=== PATIENT | female | born 1945 | race Caucasian/White ===

== ENCOUNTER 2019-12-26 07:21 | Outpatient (CLI) | payer OTHER, SELFPAY ==
--- NOTE | ~2019-12-26 | DEXA_ITS ---
Bone Density Report Name: Maria Elena Owens Age: 74 Sex: Female Ethnicity: White Date of : 1945 Indication: postmenopausal osteoporosis; height loss; hysterectomy; Referring Provider: ÓSCAR VÁSQUEZ Study: Bone densitometry was performed. Exam Date: December 26, 2019 Accession number: [id number] Bone Density: Region BMD T-score Z-score Classification AP Spine (L1-L4) 0.752 -2.7 -0.3 Osteoporosis Femoral Neck (Left) 0.650 -1.8 0.3 Osteopenia Total Hip (Left) 0.829 -0.9 0.9 Normal Total Hip Bilateral Avg 0.794 -1.2 0.6 Osteopenia Femoral Neck (Right) 0.640 -1.9 0.2 Osteopenia Total Hip (Right) 0.757 -1.5 0.3 Osteopenia World Health Organization criteria for BMD impression classify patients as: Normal (T-score at or above -1.0), Osteopenia (T-score between -1.0 and -2.5), or Osteoporosis (T-score at or below -2.5). 10-year Fracture Risk: FRAX not reported because: Some T-score for Spine Total or Hip Total or Femoral Neck at or below -2.5 Previous Exams: Region Exam Age BMD T-score BMD Change BMD Change Date g/cm2 vs Baseline vs Previous AP Spine(L1-L4) 12/26/2019 74 0.752 -2.7 -0.005(-0.7%)# -0.005(-0.7%)# 05/11/2011 65 0.757 -2.6 Total Hip(Left) 12/26/2019 74 0.829 -0.9 0.095(12.9%)# 0.095(12.9%)# 05/11/2011 65 0.734 -1.7 Total Hip(Right) 12/26/2019 74 0.757 -1.5 0.045(6.2%)# 0.045(6.2%)# 05/11/2011 65 0.713 -1.9 *Denotes significance at 95% confidence level, LSC for AP Spine = 0.022 g/cm2, LSC for Total Hip = 0.027 g/cm2 Clinical Information Provided by Patient: Has used the following medications: Fosamax (i.e. alendronate), Calcium Has the following medical conditions: Hysterectomy Patient maximum height was 65 Menopause Age: 39 No regular weight bearing exercise Drinks caffeinated beverages Onset of menses at age 14 Number of children 4 Impression: The patient has osteoporosis, based on the Total Spine T-score. No significant bone loss was observed. Discussion: INCREASED RISK OF FRACTURE. BONE DENSITY IS UNDESIRABLY LOW AT ONE OR MORE SKELETAL SITES, CONSISTENT WITH POSTMENOPAUSAL OSTEOPOROSIS. This patient's lowest T-score meets the World Health Organization's (WHO) criteria for osteoporosis at one or more sites (T-score -2.5 or below). In untreated patients, the risk of osteoporotic fracture increases approximately two-fold for each 1.0 SD decrease in T-score. Low bone density is not the only risk factor for
== END 2019-12-26 07:22 | disposition home or self-care (01) ==
LOC: ANHIMG 07:31
PROVIDERS: PCP Internal Medicine; Visit Provider Internal Medicine
DX: M81.0 Age-related osteoporosis without current pathological fracture (principal); M85.89 Other specified disorders of bone density and structure, multiple sites
CPT/HCPCS: 77080

== ENCOUNTER 2020-12-17 11:11 | Outpatient (NON) | payer OTHER, SELFPAY ==
[2020-12-17 21:44] LABS: SARS-CoV-2 RNA PCR Positive
== END 2020-12-17 11:12 ==
PROVIDERS: Family Provider Family Medicine; PCP Internal Medicine; Visit Provider Internal Medicine
DX: U07.1 COVID-19 (principal)
CPT/HCPCS: C9803; U0003; U0005

== ENCOUNTER 2020-12-30 08:16 | Outpatient (CLI) | payer OTHER, SELFPAY ==
--- NOTE | ~2020-12-30 | XR_ITS ---
EXAMINATION: XR chest 2V EXAM DATE: 12/30/2020 08:31 INDICATION: U07.1 - COVID-19. Dry cough. TECHNIQUE: Frontal and lateral projections of the chest obtained and reviewed. There is no prior cordell dy for comparison. FINDINGS: Right basilar granuloma. The lungs are otherwise clear. There are no pleural effusions. T he cardiomediastinal silhouette is within normal limits. There is no pneumothorax suspected. The frank derrek and soft tissues are unremarkable. IMPRESSION: No acute cardiopulmonary findings. Reviewed, dictated and finalized at location B. [employer]
== END 2020-12-30 08:17 | disposition home or self-care (01) ==
LOC: ANHIMG 08:19
PROVIDERS: PCP Internal Medicine; Visit Provider Internal Medicine
DX: U07.1 COVID-19 (principal)
CPT/HCPCS: 71046

== ENCOUNTER 2021-04-05 13:36 | Emergency (ER) | payer OTHER, SELFPAY ==
[2021-04-05] VITALS (9 sets, daily range): BP systolic 103–141; BP diastolic 61–120; PULSE 79–104; RESP 12–24; TEMP 36.6–36.7; O2SAT 93–100
--- NOTE | ~2021-04-05 | XR_ITS ---
EXAMINATION: XR chest 2V DATE: 04/05/2021 14:17 INDICATION: Central chest pain. Dizziness. TECHNIQUE: Frontal and lateral views of the chest were obtained. COMPARISON: Chest 2 views 12/30/2020 FINDINGS: A calcified right lung nodule is consistent with old granulomatous disease. No pleural effu monica or pneumothorax. The heart size is normal. Surgical clips in the right upper quadrant are likely from cholecystectomy. IMPRESSION: 1. No acute cardiopulmonary disease. Reviewed, dictated and finalized at location B.
--- NOTE | 2021-04-05 13:48 | ECG_ITS ---
Measurements Intervals [place] Rate: 95 P: MD: 0 QRS: 59 QRSD: 133 T: 85 QT: 384 QTc: 483 Interpretive Statements SINUS RHYTHM VENTRICULAR PREMATURE COMPLEX LEFT BUNDLE BRANCH BLOCK ABNORMAL ECG Electronically Signed On 04-05-2021 14:00:20 CDT by Josse Hernandez D.O.
[2021-04-05 14:11] LABS: Basophils Absolute Auto 0.1 K/mm3 (0.0-0.1); Basophils Percent Auto 0.9 % (0.2-1.2); Eosinophils Absolute Auto 0.1 K/mm3 (0-0.3); Eosinophils Percent Auto 1.9 % (0-4.4); Hematocrit 38.7 % (37.0-47.0); Hemoglobin 12.4 g/dL (12.0-15.0); Immature Granulocyte Absolute 0.01 K/mm3 (0.00-0.031); Immature Granulocyte Percent A 0.1 % (0-0.5); Lymphocytes Absolute Auto 2.76 K/mm3 (0.9-3.2); Lymphocytes Percent Auto 39.3 % (18.3-44.2); Mean Corpuscular Hemoglobin 27.8 pg (26-34); Mean Corpuscular Volume 86.8 fl (80-100); Mean Platelet Volume 10.5 fl (7.4-10.4); Monocytes Absolute Auto 0.5 K/mm3 (0.1-0.6); Monocytes Percent Auto 7.5 % (2.6-8.5); Neutrophils Absolute Auto 3.5 K/mm3 (1.3-6.7); Neutrophils Percent Auto 50.3 % (45.5-73.1); Platelet Count Result 267 k/mm3 (150-375); Red Blood Count 4.46 M/mm3 (4.2-5.4); Red Cell Distribution Width 15.3 % (11.5-14.5)
[2021-04-05 14:20] LABS: Anion Gap 9 mmol/L (8-16); Blood Urea Nitrogen 23 mg/dL (7-17); Calcium 9.4 mg/dL (8.4-10.2); Carbon Dioxide 21 mmol/L (22-30); Chloride 108 mmol/L (98-107); Estimated CRCL calculation 42 ml/min; Estimated Glomerular Filt Rate > 60; Glucose 158 mg/dL (65-105); Potassium 3.7 mmol/L (3.4-5.0); Sodium 138 mmol/L (137-145)
[2021-04-05 14:21] LABS: Prothrombin Time 13.5 Seconds (11.1-14.7)
[2021-04-05 14:22] LABS: Partial Thromboplastin Time 28.6 SECONDS (22.3-36.8)
[2021-04-05 14:32] LABS: Troponin I < 0.012 ng/mL (0.000-0.034)
--- NOTE | 2021-04-05 16:45 | ED.CHESTPAIN ---
HPI - Chest Pain General Chief Complaint: Chest Pain <Andrew Gomez MD - Last Filed: 04/05/21 16:51> Stated Complaint: cp, sob <Andrew Gomez MD - Last Filed: 04/05/21 16:51> Time Seen by Provider: 04/05/21 15:09 <Andrew Gomez MD - Last Filed: 04/05/21 16:51> History of Present Illness HPI narrative: Patient is a 75-year-old female who presents ER with heart palpitations. Ongoing for 6 hours. Reports she has had palpitations for the last 50 years. Typically last 15 minutes at a time. Reports she was diagnosed with atrial fibrillation 50 years ago. She is not currently on any blood thinners or rate control medication. She reports over the last month her episodes last longer and longer. Today she felt slightly dizzy and off-balance. She had no chest pain or chest pressure. She is not short of breath. No lower extremity swelling. Reports symptoms resolved while in the waiting room. <Andrew Gomez MD - Last Filed: 04/05/21 16:51> Related Data Allergies/Adverse Reactions: Allergies Allergy/AdvReac Type Severity Reaction Status Date / Time No Known Allergies Allergy Verified 04/05/21 15:18 <Andrew Gomez MD - Last Filed: 04/05/21 16:51> Review of Systems Review of Systems: All systems reviewed & are unremarkable except as noted in HPI and below <Andrew Gomez MD - Last Filed: 04/05/21 16:51> Constitutional: Constitutional: Denies chills and Denies fever(s) <Andrew Gomez MD - Last Filed: 04/05/21 16:51> ENT: Denies nasal congestion and Denies sore throat <Andrew Gomez MD - Last Filed: 04/05/21 16:51> Cardiovascular: Cardiovascular: Denies chest pain, Denies rapid heart rate and Denies radiating jaw, neck or arm pain <Andrew Goemz MD - Last Filed: 04/05/21 16:51> Comments: palpitations <Andrew Gomez MD - Last Filed: 04/05/21 16:51> Respiratory: Respiratory: Denies cough and Denies dyspnea <Andrew Gomez MD - Last Filed: 04/05/21 16:51> Gastrointestinal: Gastrointestinal: Denies abdominal pain, Denies nausea and Denies vomiting <Andrew Gomez MD - Last Filed: 04/05/21 16:51> PMFSH Past Medical History Medical History: Medical History (Updated 04/05/21 @ 16:51 by Andrew Gomez MD) COVID-19 Gastroesophageal reflux disease without esophagitis History of kidney stones HLD (hyperlipidemia) HTN, goal below 140/80 Mitral valve prolapse Neuropathy Osteoporosis <Andrew Gomez MD - Last Filed: 04/05/21 16:51> Surgical History Surgical History: Surgical History (Updated 04/05/21 @ 16:47 by Andrew Gomez MD) History of cholecystectomy History of craniotomy History of hysterectomy <Andrew Gomez MD - Last Filed: 04/05/21 16:51> Family History Family History: Family History Father Family history of multiple sclerosis Patient's father is Mother Hypertension Cerebrovascular accident Family history of transient ischemic attacks Family history of congestive heart failure Patient's mother is Sibling Hypertension Family history of elevated blood lipids Family history of coronary artery disease Patient's sister is in good health Patient's brother is in good health <Andrew Gomez MD - Last Filed: 04/05/21 16:51> Social History Social History: Social History Smoking status: Former smoker Smoking end date: 11/27/1962 Alcohol intake: never <Andrew Gomez MD - Last Filed: 04/05/21 16:51> Exam Narrative: Exam Narrative: GENERAL: Well-appearing, well-nourished, and in no acute distress. HEAD: Normocephalic, atraumatic. ENT: Mucous membranes moist. CHEST: Clear to auscultation. No respiratory distress. HEART: Regular rate and rhythm. Normal peripheral pulses. ABDOMEN: Soft, nontender, nondistended. EXTREMITIES: Emmy
[2021-04-05 17:35] LABS: Troponin I < 0.012 ng/mL (0.000-0.034)
== END 2021-04-05 18:05 | disposition home or self-care (01) ==
PROVIDERS: Emergency Medicine; Emergency Provider Family Medicine; PCP Internal Medicine
DX: R00.2 Palpitations (principal); Z86.16 Personal history of COVID-19; K21.9 Gastro-esophageal reflux disease without esophagitis; Z87.442 Personal history of urinary calculi; E78.5 Hyperlipidemia, unspecified; I34.1 Nonrheumatic mitral (valve) prolapse; M81.0 Age-related osteoporosis without current pathological fracture; G62.9 Polyneuropathy, unspecified; Z87.891 Personal history of nicotine dependence; I49.3 Ventricular premature depolarization; I44.7 Left bundle-branch block, unspecified
CPT/HCPCS: 36415; 71046; 80048; 84484; 85025; 85610; 85730; 93005; 99284

== ENCOUNTER 2021-04-20 10:13 | Outpatient (CLI) | payer OTHER, SELFPAY ==
--- NOTE | 2021-04-23 12:46 | WPDHOLTEREM ---
Holter/Event Monitor Holter/Event Monitor Date of procedure: 04/20/21 Procedure Type: 48 hour holter monitor Indications: Palpitations Conclusion: 1. 48 hour holter monitor on 04/20/21. 2. Predominant rhythm is sinus rhythm. HR range 57-146 bpm; average HR 87 bpm. 3. There are 108 premature supraventricular complexes and 105 supraventricular couplets. There are 122 episodes of atrial fibrillation with total burden of 0.3%, fastest at 174 bpm and longest at 10 beats. 4. There are 18,757 premature ventricular complexes, 55 ventricular couplets, 27 ventricular bigeminy and 986 ventricular trigeminy. No ventricular tachycardia. 5. Left bundle branch block. No sinoatrial or atrioventricular blocks. No significant pauses greater than 2 seconds. 6. No symptoms available for correlation.
== END 2021-04-20 10:14 | disposition home or self-care (01) ==
LOC: ANHCARD 10:14
PROVIDERS: PCP Internal Medicine; Visit Provider Internal Medicine
DX: R00.2 Palpitations (principal)
CPT/HCPCS: 93225; 93226

== ENCOUNTER 2021-06-13 12:30 | Emergency (ER) | payer OTHER, SELFPAY ==
--- NOTE | 2021-06-13 12:32 | ED.GENADULT ---
HPI - General Adult General Chief complaint: Skin/Abscess/Foreign Body Stated complaint: rash Time Seen by Provider: 06/13/21 12:32 Source: patient Mode of arrival: ambulatory Limitations: no limitations History of Present Illness HPI narrative: 75-year-old female patient presents to the [facility] with complaints of a rash for the past 2 days. Patient states rash is on bilateral arms, torso, lower back and starting in between the thighs. Patient states that the rash does not itch and denies any sick symptoms recently. Patient states that the only thing that has changed is that she was put on new blood pressure medication about 2 weeks ago by her doctor and she states that this week she has went out of town for and stayed in another bed. Patient concerned about possible bedbugs. Denies chest pain or shortness of breath. Denies any nausea, vomiting or diarrhea Related Data Allergies Allergy/AdvReac Type Severity Reaction Status Date / Time No Known Allergies Allergy Verified 06/13/21 12:35 Review of Systems Review of Systems: Narrative: CONSTITUTIONAL: Denies fever, chills, or sweats. EYES: Denies visual changes, redness, or discharge. ENT: Denies rhinorrhea, congestion, sore throat, or otalgia. CARDIOVASCULAR: Denies chest pain, palpitations, or edema. RESPIRATORY: Denies cough or dyspnea. GASTROINTESTINAL: Denies abdominal pain, nausea, vomiting, or diarrhea. GENITOURINARY: Denies dysuria or hematuria. SKIN: Positive rash to bilateral arms, torso, lower back and bilateral inner thighs x2 days. No itching MUSCULOSKELETAL: Denies back pain, joint pain, or myalgia. NEUROLOGIC: Denies headache, numbness, or weakness. PSYCHIATRIC: Denies anxiety or depression. [facility] Past Medical History Medical History COVID-19 Gastroesophageal reflux disease without esophagitis History of kidney stones HLD (hyperlipidemia) HTN, goal below 140/80 Mitral valve prolapse Neuropathy Osteoporosis Surgical History Surgical History History of cholecystectomy History of craniotomy History of hysterectomy Family History Family History Father Family history of multiple sclerosis Patient's father is Mother Hypertension Cerebrovascular accident Family history of transient ischemic attacks Family history of congestive heart failure Patient's mother is Sibling Hypertension Family history of elevated blood lipids Family history of coronary artery disease Patient's sister is in good health Patient's brother is in good health Social History Social History Years smoked: 10 Smoking status: Former smoker Tobacco type: cigarettes Second hand tobacco smoke exposure: Yes Smoking end date: 11/27/1962 Alcohol intake: never Comments At the time of my signature I agree with nursing past medical history, surgical, social, and family history. There is no relevant family history pertinent to the presenting complaint. Exam Narrative: Exam Narrative: GENERAL: Well-appearing, well-nourished, and in no acute distress. HEAD: Normocephalic, atraumatic. EYES: PERRLA and EOMI. ENT: Nares clear, no rhinorrhea or epistaxis. Mucous membranes moist. NECK: Supple. No lymphadenopathy CHEST: Clear to auscultation. No respiratory distress. HEART: Regular rate and rhythm. No murmur heard. Normal peripheral pulses. ABDOMEN: Soft, nontender, nondistended, normal active bowel sounds. EXTREMITIES: Normal range of motion. No edema. SKIN: Patient has generalized rash noted. The rash appears to be oval on erythemic base the center does appear slightly darker. The shape is irregular and bigger and smaller in certain areas. There is no open wounds or drainage noted. There is no blistering noted. The rash is sc
[2021-06-13 12:34] VITALS: BP 148/63; PULSE 89; RESP 12; TEMP 36.6; O2SAT 99
== END 2021-06-13 13:00 | disposition home or self-care (01) ==
PROVIDERS: Emergency Provider Nurse Practitioner Family; PCP Internal Medicine
DX: R21 Rash and other nonspecific skin eruption (principal); Z86.16 Personal history of COVID-19; K21.9 Gastro-esophageal reflux disease without esophagitis; E78.5 Hyperlipidemia, unspecified; I10 Essential (primary) hypertension; G62.9 Polyneuropathy, unspecified; M81.0 Age-related osteoporosis without current pathological fracture; I34.1 Nonrheumatic mitral (valve) prolapse
CPT/HCPCS: 99213; G0463

== ENCOUNTER 2021-07-12 07:10 | Outpatient (CLI) | payer OTHER, SELFPAY ==
--- NOTE | ~2021-07-12 | NM_ITS ---
EXAMINATION: NM miracle stress w perfusion DATE: 07/12/2021 12:08 INDICATION: Dyspnea on exertion. TECHNIQUE: Rest images were obtained following intravenous administration of 10.2 mCi Tc99m tetrofosm in (Myoview). The patient was infused intravenously with Lexiscan (regadenoson). Then, 31.77 mCi Tc99 m tetrofosmin (Myoview) was administered intravenously, and supine and prone stress images were obtai carlos. Data was reconstructed into short axis and horizontal and vertical long axis SPECT images. Gated SPECT images were also obtained. COMPARISON: None. FINDINGS: There is no definite reversible or fixed perfusion abnormality to suggest ischemia or infar ction. There is no segmental wall motion abnormality. Left ventricular ejection fraction measures 6 2%. IMPRESSION: 1. No definite ischemia or infarct. 2. Normal left ventricular ejection fraction measuring 62%. Reviewed, dictated and finalized at location B.
--- NOTE | 2021-07-12 07:46 | EST_ITS ---
Patient Info Name: Maria Elena Owens Age: 75 years : 1945 Gender: Female Ht: 63 in Wt: 150 lbs BSA: 1.76 m2 Exam Date: 07/12/2021 10:50 AM Exam Location: [facility] Stress Patient Status: Outpatient Admit Date: 07/12/2021 Staff Ordering Physician: Josse Hernandez DO Attending Provider: Josse Hernandez DO Exercise Technologist: Kayleen Herrera RDCS Exercise Physician: Josse Hernandez DO Exam Type: CA stress miracle w NM Study Info Indications R06.00 - Dyspnea, unspecified A regadenoson stress test was performed. Summary 1. 1. Inconclusive lexiscan stress test for ischemic ST changes by ECG criteria due to baseline LBBB. 2. 2. Baseline hypertension. 3. 3. Nuclear scan to follow and will be reported separately. Please correlate with it. 4. 4. Patient informed of the above results. Protocol: Lexiscan Stress ECG Details Stage: REST Duration (min): 1 min : 48 sec HR (bpm): 69 SBP (mmHg): 157 DBP (mmHg): 78 Stage: REST Duration (min): 5 min : 3 sec HR (bpm): 72 SBP (mmHg): 157 DBP (mmHg): 78 Stage: STAGE 1 Duration (min): 1 min : 0 sec HR (bpm): 87 SBP (mmHg): 157 DBP (mmHg): 76 Stage: RECOVERY Duration (min): 1 min : 0 sec HR (bpm): 89 SBP (mmHg): 154 DBP (mmHg): 69 Stage: RECOVERY Duration (min): 2 min : 0 sec HR (bpm): 84 SBP (mmHg): 154 DBP (mmHg): 69 Stage: RECOVERY Duration (min): 3 min : 0 sec HR (bpm): 79 SBP (mmHg): 146 DBP (mmHg): 69 Stage: RECOVERY Duration (min): 4 min : 0 sec HR (bpm): 80 SBP (mmHg): 146 DBP (mmHg): 69 Stage: RECOVERY Duration (min): 4 min : 43 sec HR (bpm): 79 SBP (mmHg): 150 DBP (mmHg): 81 Rest HR: 72 bpm Peak HR: 92 bpm Rest Sys BP: 157 mmHg Peak Sys BP: 157 mmHg Max Pred HR: 144 bpm % Max Pred HR: 64 % Target HR: 122 bpm Max RPP: 14,444 bpm*mmHg Termination Reason: Completed protocol Cardiac Symptoms: Headache, flushed Total Time: 1 min : 0 sec Rest Rai BP: 78 mmHg Peak Rai BP: 76 mmHg Total Dose: 0.4 mg Resting ECG Sinus rhythm, LBBB. Stress ECG No ST changes. Arrhythmias None. Report Signatures
--- NOTE | 2021-07-12 07:46 | ECHO_ITS ---
Patient Info Name: Maria Elena Owens Age: 75 years : 1945 Gender: Female Ht: 63 in Wt: 150 lbs BSA: 1.76 m2 HR: 72 bpm BP: 156 / 84 mmHg Technical Quality: Good Exam Date: 07/12/2021 8:01 AM Exam Location: [facility] Patient Status: Outpatient Admit Date: 07/12/2021 Staff Ordering Physician: Josse Hernandez DO Boiler Inspector: Kayleen Herrera RDCS Attending Provider: Josse Hernandez DO Referring Physician: David PEREZ; Exam Type: CA echo doppler color flow Study Info Indications R06.00 - Dyspnea, unspecified Complete two-dimensional, color flow and Doppler transthoracic echocardiogram is performed. Summary 1. Complete two-dimensional, color flow and Doppler transthoracic echocardiogram is performed. 2. Left ventricular chamber dimension is normal. 3. Left ventricular systolic function is normal, estimated at 55-60%. 4. Left ventricular septal wall motion is abnormal with septal motion related to bundle branch block. 5. The left ventricular diastolic function is grade I diastolic dysfunction. 6. E/e' 9 is minimally elevated. 7. Global longitudinal strain is mildly abnormal at -16.0%. 8. Left atrial chamber dimension is mildly enlarged. 9. There is trace aortic valve regurgitation. 10. There is trace mitral valve regurgitation. 11. No pulmonary hypertension, estimated pulmonary arterial systolic pressure is 21 mmHg. 12. There is trivial pericardial effusion. Left Ventricle E/e' 9 is minimally elevated. Global longitudinal strain is mildly abnormal at -16.0%. Left ventricular chamber dimension is normal. Left ventricular systolic function is normal, estimated at 55-60%. Left ventricular septal wall motion is abnormal with septal motion related to bundle branch block. The left ventricular diastolic function is grade I diastolic dysfunction. Right Ventricle Right ventricular chamber dimension is normal. Right ventricular systolic function is normal. Left Atria Left atrial chamber dimension is mildly enlarged. Right Atria Right atrial chamber dimension is normal. Aortic Valve The aortic valve is trileaflet. There is no aortic valve stenosis. There is trace aortic valve regurgitation. Pulmonic Valve There is no pulmonic regurgitation. Mitral Valve There is no mitral valve stenosis. There is trace mitral valve regurgitation. Tricuspid Valve There is no tricuspid valve regurgitation. No pulmonary hypertension, estimated pulmonary arterial systolic pressure is 21 mmHg. Pericardium/Pleural There is trivial pericardial effusion. Inferior Vena Cava Normal inferior vena cava with >50% collapse upon inspiration consistent with normal right atrial pressure, 5 mmHg. Aorta The aortic root size at the sinus of Valsalva is normal. Left Ventricular Outflow Tract Name Value Normal LVOT 2D LVOT Diameter 2.0 cm LVOT Doppler LVOT Peak Gradient 5 mmHg LVOT Mean Gradient 3 mmHg LVOT VTI 22 cm LVOT VTI/AV VTI Ratio 0.8 LVOT Stroke Volume 72
== END 2021-07-12 07:11 | disposition home or self-care (01) ==
PROVIDERS: PCP Internal Medicine; Visit Provider Internal Medicine Cardiovascular Disease
DX: R06.00 Dyspnea, unspecified (principal); I10 Essential (primary) hypertension
CPT/HCPCS: 78452; 93017; 93306; A9502; J2785

== ENCOUNTER → 2021-07-30 08:35 | Outpatient (CLI) | payer OTHER, SELFPAY ==
--- NOTE | 2021-08-20 10:10 | WPDSLEEPSTUD ---
Sleep Study Date of Study: 07/30/21 <Teresa Treviño MD - Last Filed: 08/25/21 16:51> Ordering Provider: Josse Hernandez DO <Teresa Treviño MD - Last Filed: 08/25/21 16:51> Interpreting Physician: Teresa Treviño MD <Teresa Treviño MD - Last Filed: 08/25/21 16:51> Sleep Study Type: Polysomnogram <Teresa Treviño MD - Last Filed: 08/25/21 16:51> Height: 1.65 m <Teresa Treviño MD - Last Filed: 08/25/21 16:51> Weight: 58.967 kg <Teresa Treviño MD - Last Filed: 08/25/21 16:51> Body Mass Index: 21.6 <Teresa Treviño MD - Last Filed: 08/25/21 16:51> Neck Circumference (inches): 14 <Teresa Treviño MD - Last Filed: 08/25/21 16:51> [place]: 10 <Teresa Treviño MD - Last Filed: 08/25/21 16:51> Reason for Sleep Study Occasional snoring, hypersomnolence <Teresa Treviño MD - Last Filed: 08/25/21 16:51> Hypersomnia <Kaci Quinn PA-C - Last Filed: 08/20/21 10:55> Sleep History Maria Elena Owens is a 75 year old female with episodes of waking at night to go to the bathroom. She has excessive daytime sleepiness. There is a family history of sleep issues with her daughter who has sleep apnea. The patient does not awaken from sleep feeling short of breath or awaken at night with heartburn, belching or coughing. She occasionally snores. She rarely snores loudly enough that others complain. She occasionally has trouble sleeping with a cold. She does not wake up gasping for breath at night. She does not sweat excessively at night. She frequently notices her heart pounding or beating irregularly at night. She constantly falls asleep during the day, rarely falls asleep involuntarily, never falls asleep while driving. She does not have loss of muscle tone with strong emotion. She does not have daytime difficulties due to excessive sleepiness. She does not feel paralyzed on waking or falling asleep. She occasionally has vivid dreamlike scenes upon awakening or falling asleep. She does not feel afraid to go to sleep. She does not have nightmares. She rarely remembers her dreams, rarely has racing thoughts, feelings of sadness, depression or anxiety. She does not have muscular tension, does not notice part of her body jerking. She does not kick at night. She does not have crawling or aching feelings in her legs. She rarely has any kind of leg pain at night. She does not have morning jaw pain. She does not grind her teeth during sleep. She is not bothered by pain during the day or awakened by pain at night. She rarely wakes up feeling stiff in the morning. She does not wake up with sore achy muscles. She rarely wakes up with pain in the neck and spine. She has fatigue and palpitations. She has memory problems which she attributes to her age. She takes antacids regularly. Normal bedtime is 11:00 p.m. falling asleep quickly waking 3 times at night to go to the bathroom as well as get a slip of water. She is able to return to sleep quickly. She wakes the morning at 6:30 a.m.. Her weekend schedule is the same. She estimates getting 4-6 hours of sleep most nights. She takes naps in the afternoon. She has a short nap may be refreshing. She feels better in the evening compared to other times of day. Habits: Remote tobacco none x 1963. No caffeine. Alcohol 1 or 2 per year. No recreational drugs. <Teresa Treviño MD - Last Filed: 08/25/21 16:51> [facility] Past Medical History Medical History: Medical History COVID-19 Gastroesophageal reflux disease without esophagitis History of kidney stones HLD (hyperlipidemia) HTN, goal below 140/80 Mitral valve prolapse Neuropathy Osteoporosis <Teresa Treviño MD - Last Filed: 08/25/21 16:51> Surgical History Surgical History: Surgical History History of cholecystectomy History o
[2021-08-25 16:51] VITALS: BMI 21.6
== END ==
PROVIDERS: PCP Internal Medicine; Visit Provider Internal Medicine Cardiovascular Disease
DX: G47.33 Obstructive sleep apnea (adult) (pediatric) (principal); G47.61 Periodic limb movement disorder; G47.10 Hypersomnia, unspecified; R00.2 Palpitations; I10 Essential (primary) hypertension; E78.5 Hyperlipidemia, unspecified; I48.0 Paroxysmal atrial fibrillation; R06.00 Dyspnea, unspecified; K21.9 Gastro-esophageal reflux disease without esophagitis; I49.3 Ventricular premature depolarization; I44.7 Left bundle-branch block, unspecified; Z86.16 Personal history of COVID-19
CPT/HCPCS: 95810

== ENCOUNTER 2021-09-09 18:53 | Outpatient (CLI) | payer OTHER, SELFPAY ==
--- NOTE | 2021-09-21 16:08 | WPDSLEEPSTUD ---
Sleep Study Date of Study: 09/09/21 <Evangelina Yan DO - Last Filed: 09/21/21 16:37> Ordering Provider: Duke Min DO <Evangelina Yan DO - Last Filed: 09/21/21 16:37> Interpreting Physician: Evangelina Yan DO <Evangelina Yan DO - Last Filed: 09/21/21 16:37> Sleep Study Type: CPAP Titration <Evangelina Yan DO - Last Filed: 09/21/21 16:37> Height: 1.65 m <Evangelina Yan DO - Last Filed: 09/21/21 16:37> Weight: 68.039 kg <Evangelina Yan DO - Last Filed: 09/21/21 16:37> Body Mass Index: 25.0 <Evangelina Yan DO - Last Filed: 09/21/21 16:37> Neck Circumference (inches): 14.5 <Evangelina Yan DO - Last Filed: 09/21/21 16:37> [place]: 6 <Evangelina Yan DO - Last Filed: 09/21/21 16:37> Reason for Sleep Study The patient had a PSG on 07/30/2021 that showed an AHI of 16.6. <Evangelina Yan DO - Last Filed: 09/21/21 16:37> Sleep History Maria Elena Owens is a 75 year old female with episodes of waking at night to go to the bathroom. She has excessive daytime sleepiness. There is a family history of sleep issues with her daughter who has sleep apnea. The patient does not awaken from sleep feeling short of breath or awaken at night with heartburn, belching or coughing. She occasionally snores. She rarely snores loudly enough that others complain. She occasionally has trouble sleeping with a cold. She does not wake up gasping for breath at night. She does not sweat excessively at night. She frequently notices her heart pounding or beating irregularly at night. She constantly falls asleep during the day, rarely falls asleep involuntarily, never falls asleep while driving. She does not have loss of muscle tone with strong emotion. She does not have daytime difficulties due to excessive sleepiness. She does not feel paralyzed on waking or falling asleep. She occasionally has vivid dreamlike scenes upon awakening or falling asleep. She does not feel afraid to go to sleep. She does not have nightmares. She rarely remembers her dreams, rarely has racing thoughts, feelings of sadness, depression or anxiety. She does not have muscular tension, does not notice part of her body jerking. She does not kick at night. She does not have crawling or aching feelings in her legs. She rarely has any kind of leg pain at night. She does not have morning jaw pain. She does not grind her teeth during sleep. She is not bothered by pain during the day or awakened by pain at night. She rarely wakes up feeling stiff in the morning. She does not wake up with sore achy muscles. She rarely wakes up with pain in the neck and spine. She has fatigue and palpitations. She has memory problems which she attributes to her age. She takes antacids regularly. Normal bedtime is 11:00 p.m. falling asleep quickly waking 3 times at night to go to the bathroom as well as get a slip of water. She is able to return to sleep quickly. She wakes the morning at 6:30 a.m.. Her weekend schedule is the same. She estimates getting 4-6 hours of sleep most nights. She takes naps in the afternoon. She has a short nap may be refreshing. She feels better in the evening compared to other times of day. Habits: Remote tobacco none x 1963. No caffeine. Alcohol 1 or 2 per year. No recreational drugs. <Evangelina Yan DO - Last Filed: 09/21/21 16:37> [facility] Past Medical History Medical History: Medical History COVID-19 Gastroesophageal reflux disease without esophagitis History of kidney stones HLD (hyperlipidemia) HTN, goal below 140/80 Mitral valve prolapse Neuropathy Osteoporosis PAF (paroxysmal atrial fibrillation) <Evangelina Yan DO - Last Filed: 09/21/21 16:37> Surgical History Surgical History: Surgical History Hi
[2021-09-21 16:10] VITALS: BMI 25.0
== END 2021-09-10 06:51 | disposition home or self-care (01) ==
LOC: ANHCSM 18:58
PROVIDERS: PCP Internal Medicine; Visit Provider Internal Medicine
DX: G47.33 Obstructive sleep apnea (adult) (pediatric) (principal)
CPT/HCPCS: 95811

== ENCOUNTER 2021-09-18 10:01 | Emergency (ER) | payer OTHER, SELFPAY ==
[2021-09-18 10:07] VITALS: BP 125/68; PULSE 82; RESP 16; TEMP 36.6; O2SAT 99
--- NOTE | 2021-09-18 10:07 | ED.URI ---
HPI - URI/Sore Throat General Chief Complaint: Upper Respiratory Infection Stated Complaint: sore throat Time Seen by Provider: 09/18/21 10:08 Source: patient, RN notes reviewed and old records reviewed Mode of arrival: ambulatory Limitations: no limitations History of Present Illness HPI Narrative: 75-year-old female with a history of A. fib, hypertension, GERD, high cholesterol and osteoporosis presents to the [facility] with 3 days of a sore throat, cough that she states is clear productive. Has been using Vicks. Patient reports that she was working in the yard without a mask on and shortly after developed a sore throat. Believes it is allergies or sinuses. Only treatment with Vicks. Denies nausea vomiting diarrhea. Denies fevers, chest pain, abdominal pain. History of a craniotomy due to tumors. Related Data Home Medications Medication Instructions Recorded Confirmed alendronate [Fosamax] 70 mg PO WEEKLY 09/18/21 09/18/21 amiodarone [Cordarone] 200 mg PO DAILY 09/18/21 09/18/21 apixaban [Eliquis] 10 mg PO DAILY 09/18/21 09/18/21 duloxetine [Cymbalta] 20 mg PO DAILY 09/18/21 09/18/21 losartan 100 mg PO DAILY 09/18/21 09/18/21 omeprazole [Prilosec] 40 mg PO DAILY 09/18/21 09/18/21 pravastatin [Pravachol] 40 mg PO DAILY 09/18/21 09/18/21 Allergies Allergy/AdvReac Type Severity Reaction Status Date / Time No Known Allergies Allergy Verified 07/20/21 10:49 Review of Systems Review of Systems: All systems reviewed & are unremarkable except as noted in HPI and below Constitutional: Constitutional: Reports no additional constitutional complaints, Denies chills and Denies fever(s) Eyes: Eyes: Reports no additional eye complaints ENT: Reports as per HPI and Reports sore throat Cardiovascular: Cardiovascular: Reports no additional cardiovascular complaints and Denies chest pain Respiratory: Respiratory: Reports no additional respiratory complaints, Denies cough and Denies dyspnea Gastrointestinal: Gastrointestinal: Reports no additional gastrointestinal complaints, Denies abdominal pain, Denies diarrhea, Denies nausea and Denies vomiting Musculoskeletal: Musculoskeletal: Reports no additional musculoskeletal complaints Integumentary/Breasts: Skin/Breast: Reports system reviewed and no additional complaints, except as docu, Denies pruritus, Denies erythema and Denies rash Neurologic: Reports system reviewed and no additional complaints, except as documented Psychiatric: Psychiatric: Reports no additional psychiatric complaints Allergic/Immunologic: Allergic/Immunologic: Reports no additional allergic/immunologic complaints [facility] Past Medical History Medical History (Updated 09/18/21 @ 11:29 by Kacie Gresham) COVID-19 Gastroesophageal reflux disease without esophagitis History of kidney stones HLD (hyperlipidemia) HTN, goal below 140/80 Mitral valve prolapse Neuropathy Osteoporosis PAF (paroxysmal atrial fibrillation) Surgical History Surgical History History of cholecystectomy History of craniotomy History of hysterectomy Family History Family History Father Family history of multiple sclerosis Patient's father is Mother Hypertension Cerebrovascular accident Family history of transient ischemic attacks Family history of congestive heart failure Patient's mother is Sibling Hypertension Family history of elevated blood lipids Family history of coronary artery disease Patient's sister is in good health Patient's brother is in good health Social History Social History Smoking packs per day: 0.05 Smoking cigarettes per day: 1.0 Years smoked: 10 Smoking pack-years: 0.50 Smoking status: Former smoker Tobacco type: cigarettes Second hand tobacco smoke exposure: No Smoking end date: 11/27/1962 Alcohol intake:
== END 2021-09-18 10:34 | disposition home or self-care (01) ==
PROVIDERS: Emergency Provider Nurse Practitioner; PCP Internal Medicine
DX: J02.9 Acute pharyngitis, unspecified (principal); R09.82 Postnasal drip; Z87.891 Personal history of nicotine dependence; K21.9 Gastro-esophageal reflux disease without esophagitis; E78.5 Hyperlipidemia, unspecified; I10 Essential (primary) hypertension; I34.9 Nonrheumatic mitral valve disorder, unspecified; G62.9 Polyneuropathy, unspecified; M81.0 Age-related osteoporosis without current pathological fracture; I48.0 Paroxysmal atrial fibrillation; Z86.16 Personal history of COVID-19
CPT/HCPCS: 87081; 87880; 99213; G0463

== ENCOUNTER 2021-12-01 13:57 | Emergency (ER) | payer OTHER, SELFPAY ==
--- NOTE | ~2021-12-01 | XR_ITS ---
EXAMINATION: [id number] DATE: 12/01/2021 15:17 INDICATION: Left rib pain. TECHNIQUE: A frontal view of the chest and 3 views of the left ribs were obtained. COMPARISON: Chest 2 views 04/05/2021 FINDINGS: There is mild scarring at the lung apices. A calcified right lung nodules consistent with o ld granulomatous disease. No pleural effusion or pneumothorax. The heart size is normal. Surgical cli ps in the right upper quadrant are likely from cholecystectomy. IMPRESSION: 1. No acute rib fracture. 2. Mild scarring at the lung apices. Reviewed, dictated and finalized at location A. [facility]
[2021-12-01 14:05] VITALS: BP 142/72; PULSE 78; RESP 16; TEMP 36.6; O2SAT 99
--- NOTE | 2021-12-01 15:02 | ED.BACK ---
HPI - Back Pain/Injury General Chief Complaint: Back Pain/Injury Stated Complaint: Rib Pain Time Seen by Provider: 12/01/21 15:15 Source: patient and RN notes reviewed Mode of arrival: ambulatory Limitations: no limitations History of Present Illness HPI Narrative: 76-year-old female presents concern for posterior rib pain. Reports this morning she sneezed and felt a sudden pain near her bra strap on the left side. She reports pain is exacerbated with movement, deep breathing, coughing. Reports she took 2 Tylenol prior to arrival. She denies any trouble breathing. Reports tenderness to touch. She denies chest pain or shortness of breath. MD elicited complaint: back pain Related Data Home Medications Medication Instructions Recorded Confirmed alendronate [Fosamax] 70 mg PO WEEKLY 09/18/21 10/13/21 duloxetine [Cymbalta] 20 mg PO DAILY 09/18/21 10/13/21 losartan 100 mg PO DAILY 09/18/21 10/13/21 omeprazole [Prilosec] 40 mg PO DAILY 09/18/21 10/13/21 Allergies Allergy/AdvReac Type Severity Reaction Status Date / Time No Known Allergies Allergy Verified 10/13/21 13:20 Review of Systems Review of Systems: CONSTITUTIONAL: Denies malaise, chills, sweats, or fever. CARDIOVASCULAR: Denies chest pain, palpitations, or edema. RESPIRATORY: Denies cough or dyspnea. GASTROINTESTINAL: Denies abdominal pain, nausea, vomiting, diarrhea, loss of bowel function GENITOURINARY: Denies dysuria, hematuria, frequency, loss of bladder function. SKIN: Denies rash or itching. MUSCULOSKELETAL: Reports posterior left-sided rib pain NEUROLOGIC: Denies numbness, weakness, or headache. All systems reviewed & are unremarkable except as noted in HPI and below PMFSH Past Medical History Medical History COVID-19 Gastroesophageal reflux disease without esophagitis History of kidney stones HLD (hyperlipidemia) HTN, goal below 140/80 Mitral valve prolapse Neuropathy Osteoporosis PAF (paroxysmal atrial fibrillation) Surgical History Surgical History History of cholecystectomy History of craniotomy History of hysterectomy Family History Family History Father Family history of multiple sclerosis Patient's father is Mother Hypertension Cerebrovascular accident Family history of transient ischemic attacks Family history of congestive heart failure Patient's mother is Sibling Hypertension Family history of elevated blood lipids Family history of coronary artery disease Patient's sister is in good health Patient's brother is in good health Social History Social History Smoking packs per day: 0.05 Smoking cigarettes per day: 1.0 Years smoked: 10 Smoking pack-years: 0.50 Smoking status: Never smoker Tobacco type: cigarettes Second hand tobacco smoke exposure: No Smoking end date: 11/27/1962 Alcohol intake: never Substance use: never Comments At time of signature, agree with nursing past medical, surgical, social and family history. There is no relevant family history pertinent to the presenting complaint Exam Narrative: GENERAL: Well-appearing, well-nourished, and in no acute distress. HEAD: Normocephalic, atraumatic. EYES: PERRLA, sclera clear, and EOMI. No nystagmus. ENT: Mucous membranes moist. NECK: Supple. CHEST: No respiratory distress. Clear to auscultation. No bony deformities, no asymmetry. Speaks in full sentences. Tenderness noted to the left side mid posterior ribs, no mid line back pain HEART: Regular rate and rhythm. No murmur heard. Normal peripheral pulses. EXTREMITIES: Grossly normal range of motion. No edema. Grossly normal strength and sensation. SKIN: Warm, dry, no visible rash. No bruising, redness, open skin NEURO: Alert and oriented
== END 2021-12-01 15:40 | disposition home or self-care (01) ==
PROVIDERS: Emergency Provider Nurse Practitioner; PCP Internal Medicine
DX: R07.81 Pleurodynia (principal); F17.210 Nicotine dependence, cigarettes, uncomplicated; K21.9 Gastro-esophageal reflux disease without esophagitis; E78.5 Hyperlipidemia, unspecified; I10 Essential (primary) hypertension; I34.1 Nonrheumatic mitral (valve) prolapse; M81.0 Age-related osteoporosis without current pathological fracture; I48.0 Paroxysmal atrial fibrillation; G62.9 Polyneuropathy, unspecified; Z86.16 Personal history of COVID-19
CPT/HCPCS: 71101; 99213; G0463

== ENCOUNTER 2022-03-12 08:20 | Outpatient (CLI) | payer OTHER, SELFPAY ==
--- NOTE | ~2022-03-12 | MM_ITS ---
EXAMINATION: MM screening [facility] BI w [facility] HISTORY: Screening mammogram TECHNIQUE: Craniocaudal and mediolateral oblique 3-D tomosynthesis images were obtained and synthetic 2-D images were generated. CAD analysis was submitted and interpreted. COMPARISON: 07/25/2018, 01/13/2016 bilateral screening mammogram examinations BREAST PARENCHYMAL COMPOSITION: There are scattered areas of fibroglandular density. FINDINGS: Occasional benign calcifications. Stable right intramammary lymph node. There is no evidenc e of suspicious mass, calcification, or architectural distortion to suggest malignancy in either [address]. There has been no suspicious interval change. IMPRESSION: 1. No mammographic evidence of malignancy. 2. Recommend routine screening mammography in one year. BI-RADS Category 2: Benign finding(s). Reviewed, dictated and finalized at location A.
== END 2022-03-12 08:21 | disposition home or self-care (01) ==
PROVIDERS: PCP Internal Medicine; Visit Provider Internal Medicine
DX: Z12.31 Encounter for screening mammogram for malignant neoplasm of breast (principal)
CPT/HCPCS: 77063; 77067

== ENCOUNTER 2022-06-10 10:09 | Emergency (ER) | payer OTHER, SELFPAY ==
[2022-06-10 10:34] VITALS: BP 145/73; PULSE 74; RESP 16; TEMP 37.2; O2SAT 98
--- NOTE | 2022-06-10 10:51 | ED.SKABFB ---
HPI - Skin/Abscess/Foreign Bdy General Chief complaint: Skin/Abscess/Foreign Body Stated complaint: body rash on neck,face,arms Time Seen by Provider: 06/10/22 10:51 Source: patient Mode of arrival: ambulatory Limitations: no limitations History of Present Illness HPI narrative: 76-year-old female presented for complaint of rash to left cheek, neck, and both arms for 3 days. States it started after she was working in the garden. She denies changes to lotion, soap, detergent etc. Endorses the rash is itching, denies pain or drainage to any of the sites. She has been taking [id number]-[id number] hydrocortisone and Benadryl cream as needed. Denies lip, tongue, throat swelling or difficulty breathing. MD complaint: rash Related Data Allergies Allergy/AdvReac Type Severity Reaction Status Date / Time No Known Allergies Allergy Verified 06/10/22 10:34 Review of Systems Review of Systems: CONSTITUTIONAL: Denies body aches, fever, chills, or sweats. EYES: Denies visual changes, redness, or discharge. ENT: Denies rhinorrhea, congestion, sore throat CARDIOVASCULAR: Denies chest pain, palpitations, or edema. RESPIRATORY: Denies dyspnea. GASTROINTESTINAL: Denies abdominal pain, nausea, vomiting, or diarrhea. SKIN: reports rash, itching MUSCULOSKELETAL: Denies joint pain, or myalgia. NEUROLOGIC: Denies headache [facility] Past Medical History Medical History COVID-19 Gastroesophageal reflux disease without esophagitis History of kidney stones HLD (hyperlipidemia) HTN, goal below 140/80 Mitral valve prolapse Neuropathy Osteoporosis PAF (paroxysmal atrial fibrillation) Surgical History Surgical History History of cholecystectomy History of craniotomy History of hysterectomy Family History Family History Father Family history of multiple sclerosis Patient's father is Mother Hypertension Cerebrovascular accident Family history of transient ischemic attacks Family history of congestive heart failure Patient's mother is Sibling Hypertension Family history of elevated blood lipids Family history of coronary artery disease Patient's sister is in good health Patient's brother is in good health Social History Social History Smoking packs per day: 0.05 Smoking cigarettes per day: 1.0 Years smoked: 10 Smoking pack-years: 0.50 Smoking status: Never smoker Tobacco type: cigarettes Second hand tobacco smoke exposure: No Smoking end date: 11/27/1962 Alcohol intake: never Substance use: never Comments At time of signature, I have reviewed and agree with nursing past medical, surgical, social and family history unless otherwise noted. Please see nursing chart for further information. There is no relevant family history pertinent to the presenting complaint Exam Narrative: GENERAL: Well-appearing EYES: conjunctivae clear, and EOMI. ENT: Mucous membranes moist. Oropharynx without edema, erythema or lesions. CHEST: Clear to auscultation. No respiratory distress. HEART: Regular rate and rhythm. SKIN: Warm, dry. Round patches of erythematous lesions to neck, left cheek, and bilateral arms, c/w contact dermatitis NEURO: Alert and oriented x3. Course Course Emergency Course: Patient is aware of diagnosis, understands and agrees to treatment plan. Anticipatory guidance given. Patient agrees to follow-up as directed and is aware of reasons to seek care at the emergency department. Portions of this record may have been created with voice recognition software Level of Care: Express Care Visit Vital Signs Vital signs: Vital Signs Temperature 98.9 F 06/10/22 10:34 Pulse Rate 74 06/10/22 10:34 Respiratory Rate 16 06/10/22 10:34 Blood Pressure
== END 2022-06-10 11:04 | disposition home or self-care (01) ==
PROVIDERS: Emergency Provider Nurse Practitioner Family; PCP Internal Medicine
DX: L25.9 Unspecified contact dermatitis, unspecified cause (principal); Z87.891 Personal history of nicotine dependence; K21.9 Gastro-esophageal reflux disease without esophagitis; E78.5 Hyperlipidemia, unspecified; I10 Essential (primary) hypertension; I34.1 Nonrheumatic mitral (valve) prolapse; G62.9 Polyneuropathy, unspecified; M81.0 Age-related osteoporosis without current pathological fracture; I48.0 Paroxysmal atrial fibrillation; Z86.16 Personal history of COVID-19
CPT/HCPCS: 99213; G0463

== ENCOUNTER 2023-06-09 03:12 | Day surgery (SDC) | payer OTHER, SELFPAY ==
[2023-05-25 14:18] VITALS: BMI 27.1
[2023-06-09 11:10] VITALS: BP 161/79; PULSE 79; RESP 18; TEMP 36.3; O2SAT 98
--- NOTE | 2023-06-09 11:22 | PM.HPGS ---
History of Present Illness History of Present Illness Consent: Risks, benefits, and alternatives have been discussed and questions answered. Patient agrees to proceed with procedure. Chief complaint: neoplasm screening Narrative: Maria Elena Owens is a 77 year old female Presents for screening colonoscopy. Patient's current weight appetite and bowel movements are normal. Patient denies abdominal pain. She has had no bleeding. Family history noncontributory. Previous colonoscopy [address] Garner was unremarkable. Patient does report occasional bright red blood per rectum attributed to hemorrhoids. Review of Systems Review of Systems: Review of systems noncontributory. [facility] Past Medical History Medical History COVID-19 Gastroesophageal reflux disease without esophagitis History of kidney stones HLD (hyperlipidemia) HTN, goal below 140/80 Mitral valve prolapse Neuropathy Osteoporosis PAF (paroxysmal atrial fibrillation) Surgical History Surgical History History of cholecystectomy History of craniotomy History of hysterectomy Family History Family History Father Family history of multiple sclerosis Patient's father is Mother Hypertension Cerebrovascular accident Family history of transient ischemic attacks Family history of congestive heart failure Patient's mother is Sibling Hypertension Family history of elevated blood lipids Family history of coronary artery disease Patient's sister is in good health Patient's brother is in good health Social History Social History Smoking packs per day: 0.5 Smoking cigarettes per day: 10.0 Years smoked: 10 Smoking pack-years: 5.00 Smoking status: Former smoker Tobacco type: cigarettes Second hand tobacco smoke exposure: No Smoking end date: 11/27/1962 Alcohol intake: never Substance use: never Substance use type: does not use Lack of Transportation: No Lack of Food: Never True Current Housing: I Have Housing Concerned About Future Housing: No Difficulty Paying Gas/Electric Bills: No Difficulty Paying for Meds: No Currently Unemployed: No Education: Trade/Vocational Certificate Difficulty w/ Childcare or Family Care: No Living arrangements: with family Spiritual care concerns: No Meds Home Medications and Allergies Home Medications Medication Instructions Recorded Confirmed Type apixaban 5 mg tablet (Eliquis) 2.5 mg PO BID 08/04/22 06/09/23 History amiodarone 200 mg tablet See Rx Instructions .Route 01/25/23 06/09/23 Rx .COMPLEX #90 tabs calcium carbonate 500 mg calcium 500 mg PO BID 02/08/23 05/25/23 History (1,250 mg) chewable tablet (Calcium 500) cholecalciferol (vitamin D3) 25 25 mcg PO DAILY 02/08/23 05/25/23 History mcg (1,000 unit) capsule ferrous sulfate 325 mg (65 mg 325 mg PO DAILY 02/08/23 05/25/23 History iron) tablet magnesium 250 mg tablet 250 mg PO DAILY 02/08/23 05/25/23 History mecobalamin (vitamin B12) 500 mcg 500 mcg PO DAILY 02/08/23 05/25/23 History chewable tablet multivitamin 1 tablet PO DAILY 02/08/23 05/25/23 History omega-3 fatty acids-fish oil 360 1 cap PO BID 02/08/23 05/25/23 History mg-1,200 mg capsule (Fish Oil) pravastatin 40 mg tablet See Rx Instructions .Route 02/13/23 05/25/23 Rx .COMPLEX #90 tabs duloxetine 20 mg capsule,delayed 20 mg PO DAILY #90 caps 02/14/23 05/25/23 Rx release (Cymbalta) losartan 100 1 tablet PO DAILY #90 tabs 03/08/23 05/25/23 Rx mg-hydrochlorothiazide 25 mg tablet omeprazole 40 mg capsule,delayed 40 mg PO DAILY #90 caps 05/29/23 06/09/23 Rx release Allergies Allergy/AdvReac Type Severity Reaction Status Date / Time No Known Allergies Allergy V
[2023-06-09] MEDS: LACTATED RINGERS 1,000 ML 150 ML IV CONT (11:25)
--- NOTE | 2023-06-09 11:43 | WPDANESEPPF ---
Anes - Initial Pre Proc Eval Procedure: Operation Date: 06/09/23 11:30 Proposed Procedures p Screening Colonoscopy - Reginald Rajan MD Date/Time: 06/09/23 11:43 Surgeon: Reginald Rajan MD Pre Op Diagnosis: neoplasm screening Patient Data Age: 77 Gender: F Height: 1.65 m Weight: 72.7 kg Last Vital Signs Temp 97.3 F L 06/09/23 11:10 Pulse 79 06/09/23 11:10 Resp 18 06/09/23 11:10 BP 161/79 H 06/09/23 11:10 Pulse Ox 98 06/09/23 11:10 O2 Del Method Room Air 06/09/23 11:10 Allergies Allergy/AdvReac Type Severity Reaction Status Date / Time No Known Allergies Allergy Verified 06/09/23 11:08 Home Medications Medication Instructions Recorded Confirmed Type apixaban 5 mg tablet (Eliquis) 2.5 mg PO BID 08/04/22 06/09/23 History amiodarone 200 mg tablet See Rx Instructions .Route 01/25/23 06/09/23 Rx .COMPLEX #90 tabs calcium carbonate 500 mg calcium 500 mg PO BID 02/08/23 05/25/23 History (1,250 mg) chewable tablet (Calcium 500) cholecalciferol (vitamin D3) 25 25 mcg PO DAILY 02/08/23 05/25/23 History mcg (1,000 unit) capsule ferrous sulfate 325 mg (65 mg 325 mg PO DAILY 02/08/23 05/25/23 History iron) tablet magnesium 250 mg tablet 250 mg PO DAILY 02/08/23 05/25/23 History mecobalamin (vitamin B12) 500 mcg 500 mcg PO DAILY 02/08/23 05/25/23 History chewable tablet multivitamin 1 tablet PO DAILY 02/08/23 05/25/23 History omega-3 fatty acids-fish oil 360 1 cap PO BID 02/08/23 05/25/23 History mg-1,200 mg capsule (Fish Oil) pravastatin 40 mg tablet See Rx Instructions .Route 02/13/23 05/25/23 Rx .COMPLEX #90 tabs duloxetine 20 mg capsule,delayed 20 mg PO DAILY #90 caps 02/14/23 05/25/23 Rx release (Cymbalta) losartan 100 1 tablet PO DAILY #90 tabs 03/08/23 05/25/23 Rx mg-hydrochlorothiazide 25 mg tablet omeprazole 40 mg capsule,delayed 40 mg PO DAILY #90 caps 05/29/23 06/09/23 Rx release Patient hx anesthesia problems: none Family hx anesthesia problems: none Results Review: All pre-operative results and documents have been reviewed as part of the pre-operative evaluation. [facility] Past Medical History Medical History COVID-19 Gastroesophageal reflux disease without esophagitis History of kidney stones HLD (hyperlipidemia) HTN, goal below 140/80 Mitral valve prolapse Neuropathy Osteoporosis PAF (paroxysmal atrial fibrillation) Surgical History Surgical History History of cholecystectomy History of craniotomy History of hysterectomy Family History Family History Father Family history of multiple sclerosis Patient's father is Mother Hypertension Cerebrovascular accident Family history of transient ischemic attacks Family history of congestive heart failure Patient's mother is Sibling Hypertension Family history of elevated blood lipids Family history of coronary artery disease Patient's sister is in good health Patient's brother is in good health Social History Social History Smoking packs per day: 0.5 Smoking cigarettes per day: 10.0 Years smoked: 10 Smoking pack-years: 5.00 Smoking status: Former smoker Tobacco type: cigarettes Second hand tobacco smoke exposure: No Smoking end date: 11/27/1962 Alcohol intake: never Substance use: never Substance use type: does not use Lack of Transportation: No Lack of Food: Never True Current Housing: I Have Housing Concerned About Future Housing: No Difficulty Paying Gas/Electric Bills: No Difficulty Paying for Meds: No Currently Unemployed: No Education: Trade/Vocational Certificate Difficulty w/ Childcare or Family Care: No Living arrangements: with family Spiritual care concerns: No
[2023-06-09 12:08] VITALS: BP 100/49; PULSE 69; RESP 18; O2SAT 94
[2023-06-09 12:18] VITALS: BP 110/49; PULSE 69; RESP 18; O2SAT 95
[2023-06-09 12:28] VITALS: BP 123/56; PULSE 68; RESP 18; O2SAT 97
== END 2023-06-09 12:47 | disposition home or self-care (01) ==
PROVIDERS: PCP Family Medicine; Visit Provider Internal Medicine Gastroenterology
PROC: 0DJD8ZZ Inspection of Lower Intestinal Tract, Via Natural or Artificial Opening Endoscopic (ICD-10-PCS; CPT 45378; principal; 2023-06-09 11:30)
DX: Z12.11 Encounter for screening for malignant neoplasm of colon (principal); K64.8 Other hemorrhoids; K57.30 Diverticulosis of large intestine without perforation or abscess without bleeding; K21.9 Gastro-esophageal reflux disease without esophagitis; I48.0 Paroxysmal atrial fibrillation; I10 Essential (primary) hypertension; E78.5 Hyperlipidemia, unspecified; G62.9 Polyneuropathy, unspecified; I34.1 Nonrheumatic mitral (valve) prolapse; M81.0 Age-related osteoporosis without current pathological fracture; Z87.891 Personal history of nicotine dependence; Z79.01 Long term (current) use of anticoagulants
CPT/HCPCS: G0121; J2704; J7120

== ENCOUNTER 2023-07-07 10:41 | Emergency (ER) | payer OTHER, SELFPAY ==
--- NOTE | 2023-07-07 10:55 | ED.SKABFB ---
HPI - Skin/Abscess/Foreign Bdy General Chief complaint: Skin/Abscess/Foreign Body Stated complaint: right arm rash Source: patient Mode of arrival: ambulatory Limitations: no limitations History of Present Illness HPI narrative: 77-year-old female presented for complaint of rash spreading to cheeks, neck, and both arms since yesterday.? States it started on arms after she was working in the garden.? She denies changes to lotion, soap, detergent etc.? Endorses the rash is itching, denies pain or drainage to any of the sites.? She has been using [id number] itch cream.? Denies lip, tongue, throat swelling or difficulty breathing. Related Data Home Medications Medication Instructions Recorded Confirmed apixaban 5 mg tablet (Eliquis) 2.5 mg PO BID 08/04/22 07/07/23 calcium carbonate 500 mg calcium 500 mg PO BID 02/08/23 07/07/23 (1,250 mg) chewable tablet (Calcium 500) cholecalciferol (vitamin D3) 25 25 mcg PO DAILY 02/08/23 07/07/23 mcg (1,000 unit) capsule ferrous sulfate 325 mg (65 mg 325 mg PO DAILY 02/08/23 07/07/23 iron) tablet magnesium 250 mg tablet 250 mg PO DAILY 02/08/23 07/07/23 mecobalamin (vitamin B12) 500 mcg 500 mcg PO DAILY 02/08/23 07/07/23 chewable tablet multivitamin 1 tablet PO DAILY 02/08/23 07/07/23 omega-3 fatty acids-fish oil 360 1 cap PO BID 02/08/23 07/07/23 mg-1,200 mg capsule (Fish Oil) Allergies Allergy/AdvReac Type Severity Reaction Status Date / Time No Known Allergies Allergy Verified 07/07/23 10:53 Review of Systems Review of Systems: CONSTITUTIONAL: Denies body aches, fever, chills, or sweats. EYES: Denies visual changes, redness, or discharge. ENT: Denies rhinorrhea, congestion CARDIOVASCULAR: Denies chest pain, palpitations, or edema. RESPIRATORY: Denies cough or dyspnea. GASTROINTESTINAL: Denies abdominal pain, nausea, vomiting, or diarrhea. SKIN: reports red itchy rash MUSCULOSKELETAL: Denies back pain, joint pain, or myalgia. NEUROLOGIC: Denies headache, numbness, tingling, or weakness. PMFSH Past Medical History Medical History COVID-19 Gastroesophageal reflux disease without esophagitis History of kidney stones HLD (hyperlipidemia) HTN, goal below 140/80 Mitral valve prolapse Neuropathy Osteoporosis PAF (paroxysmal atrial fibrillation) Surgical History Surgical History History of cholecystectomy History of craniotomy History of hysterectomy Family History Family History Father Family history of multiple sclerosis Patient's father is Mother Hypertension Cerebrovascular accident Family history of transient ischemic attacks Family history of congestive heart failure Patient's mother is Sibling Hypertension Family history of elevated blood lipids Family history of coronary artery disease Patient's sister is in good health Patient's brother is in good health Social History Social History Smoking packs per day: 0.5 Smoking cigarettes per day: 10.0 Years smoked: 10 Smoking pack-years: 5.00 Smoking status: Former smoker Tobacco type: cigarettes Second hand tobacco smoke exposure: No Smoking end date: 11/27/1962 Alcohol intake: never Substance use: never Substance use type: does not use Lack of Transportation: No Lack of Food: Never True Current Housing: I Have Housing Concerned About Future Housing: No Difficulty Paying Gas/Electric Bills: No Difficulty Paying for Meds: No Currently Unemployed: No Education: Trade/Vocational Certificate Difficulty w/ Childcare or Family Care: No Living arrangements: with family Spiritual care concerns: No Comments At time of signature, I have reviewed and agree with nursing past medical, surgical,
[2023-07-07 10:58] VITALS: BP 144/81; PULSE 74; RESP 16; TEMP 37; O2SAT 99
== END 2023-07-07 11:12 | disposition home or self-care (01) ==
PROVIDERS: Emergency Provider Nurse Practitioner Family; PCP Family Medicine
DX: L25.9 Unspecified contact dermatitis, unspecified cause (principal); Z87.891 Personal history of nicotine dependence; K21.9 Gastro-esophageal reflux disease without esophagitis; E78.5 Hyperlipidemia, unspecified; I10 Essential (primary) hypertension; I34.1 Nonrheumatic mitral (valve) prolapse; G62.9 Polyneuropathy, unspecified; M81.0 Age-related osteoporosis without current pathological fracture; I48.0 Paroxysmal atrial fibrillation; Z86.16 Personal history of COVID-19
CPT/HCPCS: 99213; G0463

== ENCOUNTER 2023-09-24 17:00 | Emergency (ER) | payer OTHER, SELFPAY ==
[2023-09-24 17:12] VITALS: BP 137/67; PULSE 81; RESP 16; TEMP 36.3; O2SAT 97
--- NOTE | 2023-09-24 17:30 | ED.FALL ---
HPI - Fall General Chief Complaint: Fall Stated Complaint: fell down stairs hit head Time Seen by Provider: 09/24/23 17:13 Source: patient and RN notes reviewed Mode of arrival: ambulatory Limitations: no limitations History of Present Illness HPI Narrative: Patient presents today complaining of tenderness to her left scalp and left shoulder after she fell down 5 stairs approximately 2 hours prior to arrival. Patient states she struck her head on every stair as she fell. Denies loss of consciousness. Denies headache, dizziness, lightheadedness, neck pain, vision changes, nausea or vomiting. Denies numbness or tingling in the left arm or fingers. Pain increases slightly in the arm with movement. She did have some relief of pain in the arm after she applied some ice. Currently rates her pain 5/10. Patient takes Eliquis for AFib. History of left-sided craniotomy 51 years ago for tumors in her brain. Related Data Home Medications Medication Instructions Recorded Confirmed calcium carbonate 500 mg calcium 500 mg PO BID 02/08/23 09/24/23 (1,250 mg) chewable tablet (Calcium 500) cholecalciferol (vitamin D3) 25 25 mcg PO DAILY 02/08/23 09/24/23 mcg (1,000 unit) capsule ferrous sulfate 325 mg (65 mg 325 mg PO DAILY 02/08/23 09/24/23 iron) tablet magnesium 250 mg tablet 250 mg PO DAILY 02/08/23 09/24/23 mecobalamin (vitamin B12) 500 mcg 500 mcg PO DAILY 02/08/23 09/24/23 chewable tablet multivitamin 1 tablet PO DAILY 02/08/23 09/24/23 omega-3 fatty acids-fish oil 360 1 cap PO BID 02/08/23 09/24/23 mg-1,200 mg capsule (Fish Oil) Allergies Allergy/AdvReac Type Severity Reaction Status Date / Time No Known Allergies Allergy Verified 09/24/23 17:02 Review of Systems Review of Systems: CONSTITUTIONAL: Denies body aches, fever, chills, or sweats. EYES: Denies visual changes, redness, or discharge. ENT: Denies rhinorrhea, congestion, sore throat, or otalgia. CARDIOVASCULAR: Denies chest pain, palpitations, or edema. RESPIRATORY: Denies cough or dyspnea. GASTROINTESTINAL: Denies abdominal pain, nausea, vomiting, or diarrhea. GENITOURINARY: Denies dysuria or hematuria. SKIN: Denies rash, itching, or wounds.+ scalp tenderness MUSCULOSKELETAL: Denies back pain, or myalgia.+ left shoulder pain NEUROLOGIC: Denies headache, numbness, tingling, or weakness. PSYCH: Denies depression or anxiety. [facility] Past Medical History Medical History COVID-19 Gastroesophageal reflux disease without esophagitis History of kidney stones HLD (hyperlipidemia) HTN, goal below 140/80 Mitral valve prolapse Neuropathy Osteoporosis PAF (paroxysmal atrial fibrillation) Surgical History Surgical History History of cholecystectomy History of craniotomy History of hysterectomy Family History Family History Father Family history of multiple sclerosis Patient's father is Mother Hypertension Cerebrovascular accident Family history of transient ischemic attacks Family history of congestive heart failure Patient's mother is Sibling Hypertension Family history of elevated blood lipids Family history of coronary artery disease Patient's sister is in good health Patient's brother is in good health Social History Social History Smoking packs per day: 0.5 Smoking cigarettes per day: 10.0 Years smoked: 10 Smoking pack-years: 5.00 Smoking status: Former smoker Tobacco type: cigarettes Second hand tobacco smoke exposure: No Smoking end date: 11/27/1962 Alcohol intake: never Substance use: never Substance use type: does not use Lack of Transportation: No Lack of Food: Never True Current Housing: I Have Housing Concerned About Future Ho
== END 2023-09-24 17:30 | disposition short-term general hospital (02) ==
PROVIDERS: Emergency Provider Nurse Practitioner; PCP Family Medicine
DX: S49.92XA Unspecified injury of left shoulder and upper arm, initial encounter (principal); S09.90XA Unspecified injury of head, initial encounter; W10.9XXA Fall (on) (from) unspecified stairs and steps, initial encounter; Z87.891 Personal history of nicotine dependence; K21.9 Gastro-esophageal reflux disease without esophagitis; E78.5 Hyperlipidemia, unspecified; I10 Essential (primary) hypertension; I34.1 Nonrheumatic mitral (valve) prolapse; M81.0 Age-related osteoporosis without current pathological fracture; I48.91 Unspecified atrial fibrillation; Z79.01 Long term (current) use of anticoagulants
CPT/HCPCS: 99212; G0463

== ENCOUNTER 2023-09-24 17:50 | Emergency (ER) | payer OTHER, SELFPAY ==
--- NOTE | ~2023-09-24 | CT_ITS ---
EXAMINATION: CT brain wo con DATE: 09/24/2023 18:40 INDICATION: head injury on blood thinner . TECHNIQUE: Computed tomography (CT) of the head was performed without intravenous contrast. The mA wa s adjusted according to patient size. Iterative reconstruction technique was employed. The dose-lengt h product was 529.67 mGy-cm. COMPARISON: None. FINDINGS: No acute intracranial hemorrhage or extra-axial fluid collection. No hydrocephalus, mass, or herniation. No acute ischemic infarct. Unremarkable dural venous sinus attenuation. No acute osseous abnormality. Left frontal craniotomy The aerated spaces are clear. Mild atrophy and chronic white matter change. Atherosclerotic intracranial calcification. Bilateral l ens replacements. Old left basal ganglia lacunar infarcts. Prominent bifrontal extra-axial spaces. Le ft frontal lobe encephalomalacia. IMPRESSION: No acute intracranial process. Reviewed, dictated and finalized at location K.
--- NOTE | ~2023-09-24 | XR_ITS ---
EXAM: XR shoulder LT min 2V DATE: 09/24/2023 18:43 HISTORY: fall TODAY, L shoulder pain and bruise . COMPARISON: None available. FINDINGS: Decreased mineralization. No fracture or dislocation. No lytic or blastic lesion. Joint sp aces are maintained. No erosion or periosteal change. Soft tissues within normal limits. IMPRESSION: No acute osseous finding in the left shoulder. Reviewed, dictated and finalized at location K.
[2023-09-24 17:51] VITALS: BP 151/72; PULSE 80; RESP 16; TEMP 36.6; O2SAT 98
--- NOTE | 2023-09-24 17:59 | ED.GENADULT ---
HPI - General Adult General Chief complaint: Head Injury Stated complaint: FALL HIT HEAD ON ELIQUIS Time Seen by Provider: 09/24/23 17:56 Source: patient Mode of arrival: ambulatory Limitations: no limitations History of Present Illness HPI narrative: This is a 77-year-old female who presents to the ED with chief complaint of Related Data Home Medications Medication Instructions Recorded Confirmed calcium carbonate 500 mg calcium 500 mg PO BID 02/08/23 09/24/23 (1,250 mg) chewable tablet (Calcium 500) cholecalciferol (vitamin D3) 25 25 mcg PO DAILY 02/08/23 09/24/23 mcg (1,000 unit) capsule ferrous sulfate 325 mg (65 mg 325 mg PO DAILY 02/08/23 09/24/23 iron) tablet magnesium 250 mg tablet 250 mg PO DAILY 02/08/23 09/24/23 mecobalamin (vitamin B12) 500 mcg 500 mcg PO DAILY 02/08/23 09/24/23 chewable tablet multivitamin 1 tablet PO DAILY 02/08/23 09/24/23 omega-3 fatty acids-fish oil 360 1 cap PO BID 02/08/23 09/24/23 mg-1,200 mg capsule (Fish Oil) Allergies Allergy/AdvReac Type Severity Reaction Status Date / Time No Known Allergies Allergy Verified 09/24/23 17:02 Review of Systems Review of Systems: All systems as dictated in HPI [facility] Past Medical History Medical History COVID-19 Gastroesophageal reflux disease without esophagitis History of kidney stones HLD (hyperlipidemia) HTN, goal below 140/80 Mitral valve prolapse Neuropathy Osteoporosis PAF (paroxysmal atrial fibrillation) Surgical History Surgical History History of cholecystectomy History of craniotomy History of hysterectomy Family History Family History Father Family history of multiple sclerosis Patient's father is Mother Hypertension Cerebrovascular accident Family history of transient ischemic attacks Family history of congestive heart failure Patient's mother is Sibling Hypertension Family history of elevated blood lipids Family history of coronary artery disease Patient's sister is in good health Patient's brother is in good health Social History Social History Smoking packs per day: 0.5 Smoking cigarettes per day: 10.0 Years smoked: 10 Smoking pack-years: 5.00 Smoking status: Former smoker Tobacco type: cigarettes Second hand tobacco smoke exposure: No Smoking end date: 11/27/1962 Alcohol intake: never Substance use: never Substance use type: does not use Lack of Transportation: No Lack of Food: Never True Current Housing: I Have Housing Concerned About Future Housing: No Difficulty Paying Gas/Electric Bills: No Difficulty Paying for Meds: No Currently Unemployed: No Education: Trade/Vocational Certificate Difficulty w/ Childcare or Family Care: No Living arrangements: with family Spiritual care concerns: No Exam Narrative: GENERAL: Well-appearing, well-nourished, and in no acute distress. HEAD: Normocephalic, atraumatic. EYES: PERRLA and EOMI. ENT: Nares clear, no rhinorrhea or epistaxis. Mucous membranes moist. Oropharynx without tonsillar hypertrophy exudate or other lesions. NECK: Supple. No adenopathy or masses. CHEST: No respiratory distress. Clear to auscultation. No wheezes rales or rhonchi HEART: Regular rate and rhythm. No murmur heard. Normal peripheral pulses. ABDOMEN: Soft, nontender, nondistended, normal active bowel sounds. MSK: Tenderness to the left shoulder with mild bruising. No deformity. Soft compartments. Full range of motion throughout all extremities and joints. No tenderness to the other joint. No pain with hip logroll. No midline tenderness throughout the entire spine. SKIN: Warm, dry, no rash. NEURO: Alert and oriented x4. No focal deficits. 5 o
[2023-09-24 19:29] VITALS: BP 129/65; PULSE 76; RESP 20; O2SAT 96
== END 2023-09-24 19:30 | disposition home or self-care (01) ==
PROVIDERS: Emergency Provider Physician Assistant; PCP Family Medicine
DX: S09.90XA Unspecified injury of head, initial encounter (principal); M25.512 Pain in left shoulder; Z79.899 Other long term (current) drug therapy; E78.5 Hyperlipidemia, unspecified; I10 Essential (primary) hypertension; I48.0 Paroxysmal atrial fibrillation; Z87.891 Personal history of nicotine dependence; W19.XXXA Unspecified fall, initial encounter
CPT/HCPCS: 70450; 73030; 99284

== ENCOUNTER 2024-01-18 08:41 | Outpatient (CLI) | payer OTHER, SELFPAY ==
--- NOTE | ~2024-01-18 | DEXA_ITS ---
Bone Density Report Name: TIFFANIE CARMEN Age: 78 Sex: Female Ethnicity: White Date of : 1945 Indication: postmenopausal; screening for osteoporosis; height loss; prior fracture; hysterectomy; Referring Provider: KAMI MELTON Study: Bone densitometry was performed. Exam Date: January 18, 2024 Accession number: [id number] Bone Density: Region BMD T-score Z-score Classification AP Spine(L1-L4) 0.838 -1.9 0.7 Osteopenia Total Forearm (Left) 0.507 -1.3 1.6 1/3 Forearm (Left) 0.652 -0.7 2.3 UD Forearm (Left) 0.365 -1.4 0.8 World Health Organization criteria for BMD impression classify patients as: Normal (T-score at or above -1.0), Osteopenia (T-score between -1.0 and -2.5), or Osteoporosis (T-score at or below -2.5). Clinical Information Provided by Patient: Has had a low trauma fracture Has used the following medications: Vitamin D, Calcium Has the following medical conditions: Hysterectomy Patient maximum height was 65 Menopause Age: 39 Drinks caffeinated beverages Onset of menses at age 12 Number of children 4 Impression: The patient has low bone mass, based on the Total Spine T-score. The patient has risk factors, including: previous fracture. Discussion: BONE DENSITY IS LOW AT ONE OR MORE SKELETAL SITES. This patient's lowest T-score is low at one or more skeletal sites. It meets the World Health Organization's (WHO) criteria for ?low bone mass? (T-score between -1.0 and -2.5). The patient's 10-year risk of fracture as calculated by FRAX is less than the threshold where pharmacological therapy is recommended by the National Osteoporosis Foundation (NOF). However, all treatment decisions require clinical judgment and consideration of individual patient factors, including patient preferences, comorbidities, previous drug use, risk factors not captured in the FRAX model (e.g., frailty, falls, vitamin D deficiency, increased bone turnover, interval significant decline in bone density) and possible under or overestimation of fracture risk by FRAX. The patient should follow a healthful lifestyle (good nutrition with adequate calcium and vitamin D, and appropriate weight-bearing exercise). Follow-Up: Consider repeating this study in 2 to 3 years to reassess this patient's status, or sooner if there is some new clinical indication. Reported by: ANA on 01/18/2024 10:19:00 AM. Reviewed, dictated and finalized at location ABridget CROOKS
== END 2024-01-18 08:42 | disposition home or self-care (01) ==
PROVIDERS: PCP Family Medicine; Visit Provider Nurse Practitioner
DX: M85.89 Other specified disorders of bone density and structure, multiple sites (principal); M81.0 Age-related osteoporosis without current pathological fracture
CPT/HCPCS: 77080

== ENCOUNTER 2024-02-27 15:21 | Outpatient (CLI) | payer OTHER, SELFPAY ==
--- NOTE | ~2024-02-27 | CT_ITS ---
EXAMINATION: CT brain wo con DATE: 02/27/2024 15:47 INDICATION: R42 - Dizziness and giddiness . TECHNIQUE: Computed tomography (CT) of the head was performed with intravenous contrast. The mA was a djusted according to patient size. Iterative reconstruction technique was employed. The dose-length p roduct was 605.33 mGy-cm. COMPARISON: 09/24/2023. FINDINGS: No acute intracranial hemorrhage or extra-axial fluid collection. No hydrocephalus, mass, or herniation. No acute ischemic infarct. Unremarkable dural venous sinus attenuation. No acute osseous abnormality. Left frontotemporal craniotomy. The aerated spaces are clear. Mild atrophy and chronic white matter change. Atherosclerotic intracranial calcification. Bilateral l ens replacements. Left medial frontal lobe encephalomalacia. Old left basal ganglia lacunar infarcts. Slightly prominent bifrontal extra-axial spaces. IMPRESSION: No acute intracranial process. Reviewed, dictated and finalized at location K.
== END 2024-02-27 15:22 | disposition home or self-care (01) ==
PROVIDERS: PCP Family Medicine; Visit Provider Nurse Practitioner Family
DX: R42 Dizziness and giddiness (principal); Z86.011 Personal history of benign neoplasm of the brain
CPT/HCPCS: 70450

== ENCOUNTER 2024-09-23 11:34 | Inpatient (IN) | payer OTHER, SELFPAY ==
--- NOTE | ~2024-09-23 | XR_ITS ---
EXAMINATION: XR chest 1V portable DATE: 09/23/2024 14:03 INDICATION: Fall. TECHNIQUE: A single frontal view of the chest was obtained. COMPARISON: Chest 2 views 04/05/2021 FINDINGS: A calcified right lung nodule is consistent with old granulomatous disease. No pleural effu monica or pneumothorax. The heart size is normal. IMPRESSION: 1. No acute cardiopulmonary disease. Reviewed, dictated and finalized at location B.
--- NOTE | ~2024-09-23 | CT_ITS ---
EXAMINATION: CT elbow RT wo con DATE: 09/24/2024 14:18 INDICATION: Right olecranon fracture. TECHNIQUE: Computed tomography (CT) of the right elbow was performed without intravenous contrast. Au tomated exposure control and iterative reconstruction technique were employed. The dose-length produc t was 740.29 mGy-cm. COMPARISON: Right elbow radiographs 09/23/2024 FINDINGS: There is normal alignment at the radiocapitellar joint. There is a comminuted fracture of o lecranon of proximal ulna. The main distal fracture fragment demonstrates 2.4 cm distraction and 90 d egrees volar angulation. There are osteophytes of the ulnohumeral joint. There is an elbow joint effu monica. IMPRESSION: 1. Comminuted fracture of olecranon of proximal ulna. Reviewed, dictated and finalized at location B.
--- NOTE | ~2024-09-23 | XR_ITS ---
EXAMINATION: XR elbow RT 2V DATE: 09/23/2024 13:10 INDICATION: Right elbow injury. TECHNIQUE: 2 views of right elbow were obtained. COMPARISON: None. FINDINGS: There is a transverse fracture of olecranon of proximal ulna. The distal fracture fragment demonstrates 2.7 mm distraction and rotation. Joint spaces are otherwise normal. There is an elbow nelda int effusion. IMPRESSION: 1. Transverse fracture of olecranon of proximal ulna. Reviewed, dictated and finalized at location B.
--- NOTE | ~2024-09-23 | XR_ITS ---
EXAMINATION: XR surgery orthopedic DATE: 09/25/2024 16:15 CDT INDICATION: ORIF RIGHT OLECRANON FX . TECHNIQUE: 3 fluoroscopic images of the right elbow were obtained during ORIF right olecranon fractur e, performed by Scottie Ascencio MD. I was not present during the procedure. Fluoroscopy exposure time w as 45.6 seconds. Air Kerma 1.6272 mGy. DAP 0.3226 mGym2. COMPARISON: None FINDINGS/IMPRESSION: Fluoroscopic documentation of ORIF right olecranon fracture . Please refer to the operative note for complete procedural details . Reviewed, dictated and finalized at location K.
--- NOTE | ~2024-09-23 | XR_ITS ---
Portable chest x-ray Comparison: 09/23/2024 Clinical History: Shortness of breath Findings: Lungs are clear, without focal consolidation or pleural effusion. Stable calcified right b asilar granuloma. Cardiomediastinal silhouette is stable. Bones and soft tissues are unremarkable. Impression: No acute abnormality. Reviewed, dictated and finalized at location . Impression: No acute abnormality.
[2024-09-23 11:42] VITALS: BP 123/62; PULSE 70; RESP 15; TEMP 36.4; O2SAT 97
[2024-09-23] MEDS: HYDROcodone/acetaminophen (*CRX) 5-325 MG TABLET 1 TAB PO (12:39)
--- NOTE | 2024-09-23 13:17 | ED_ITS ---
HPI - Extremity Injury (Upper) General Chief Complaint: Extremity Injury, Upper Stated Complaint: r elbow pain Time Seen by Provider: 09/23/24 12:01 History of Present Illness HPI narrative: Patient is a 78-year-old female who presents ER after a trip and fall. She tripped over a [place]ara in her garage. She landed on her right elbow. Sudden onset pain. Cannot perform range of motion due to pain and swelling. There is bruising noted. Patient is on apixaban. She did not strike her head or lose consciousness. She reports she struck her knee but is able to ambulate and has no pain there. No numbness/tingling in the RUE, normal fqn of the hand/wrist Related Data Home Medications Medication Instructions Recorded Confirmed calcium carbonate (Calcium 500) 500 mg PO BID 02/08/23 09/23/24 cholecalciferol (vitamin D3) 25 25 mcg PO DAILY 02/08/23 09/23/24 mcg (1,000 unit) capsule ferrous sulfate 325 mg (65 mg 325 mg PO DAILY 02/08/23 09/23/24 iron) tablet magnesium 250 mg tablet 250 mg PO DAILY 02/08/23 09/23/24 mecobalamin (vitamin B12) 500 mcg 500 mcg PO DAILY 02/08/23 09/23/24 chewable tablet multivitamin 1 tablet PO DAILY 02/08/23 09/23/24 omega-3 fatty acids-fish oil 360 1 cap PO BID 02/08/23 09/23/24 mg-1,200 mg capsule (Fish Oil) apixaban 5 mg tablet (Eliquis) See Rx Instructions .Route 09/23/24 09/23/24 .COMPLEX afib Allergies Allergy/AdvReac Type Severity Reaction Status Date / Time No Known Allergies Allergy Verified 09/04/24 08:56 Review of Systems Review of Systems: All systems reviewed & are unremarkable except as noted in HPI and below Constitutional: Constitutional: Reports no additional constitutional complaints Cardiovascular: Cardiovascular: Reports no additional cardiovascular complaints Respiratory: Respiratory: Reports no additional respiratory complaints Gastrointestinal: Gastrointestinal: Reports no additional gastrointestinal complaints Musculoskeletal: Musculoskeletal: Reports no additional musculoskeletal complaints Neurologic: Reports system reviewed and no additional complaints, except as documented PMFSH Past Medical History Medical History Brain tumor COVID-19 Gastroesophageal reflux disease without esophagitis History of kidney stones HLD (hyperlipidemia) HTN, goal below 140/80 Mitral valve prolapse Neuropathy Osteoporosis PAF (paroxysmal atrial fibrillation) Surgical History Surgical History History of cholecystectomy History of craniotomy History of hysterectomy Family History Family History Father Family history of multiple sclerosis Patient's father is Mother Hypertension Cerebrovascular accident Family history of transient ischemic attacks Family history of congestive heart failure Patient's mother is Sibling Hypertension Family history of elevated blood lipids Family history of coronary artery disease Patient's sister is in good health Patient's brother is in good health Social History Social History Smoking packs per day: 0.5 Smoking cigarettes per day: 10.0 Years smoked: 10 Smoking pack-years: 5.00 Smoking status: Former smoker Tobacco type: cigarettes Second hand tobacco smoke exposure: No Smoking end date: 11/27/1962 Alcohol intake: never Substance use: never Substance use type: does not use Do You Feel Safe in your Home?: Yes Lack of Transportation: No Lack of Food: Never True Current Housing: I Have Housing Concerned About Future Housing: No Difficulty Paying Gas/Electric Bills: No Difficulty Paying for Meds: No Currently Unemployed: No Education: Trade/Vocational Certificate Difficulty w/ Childcare or Family Care: No Living arrangements: with family Spiritual care concerns: No Exam Narrative: GENERAL: Uncomfortable-appearing, well-nourished, and in no acute distress. HEAD: Normocephalic, atraumatic. ENT: Mucous membranes moist. CHEST: Clear to auscultation. No respiratory distress. HEART: Regular rate and rhythm. Normal peripheral pulses. EXTREMITIES: Tenderness/swelling/bruising right elbow, cannot preform ROM 2/2 pain. No shoulder/wrist/hand pain on the right. SKIN: Warm, dry, no rash. NEURO: Alert and oriented x3. Right hand NV intact. PSYCH: Normal mood and affect. Course Course Emergency Course: Orthopedic surgery consulted. Patient placed in anterior long arm splint at their request. It is recommend she be admitted to the hospitalist service for cardiac clearance for surgery and that the anticoagulation be held. Will have her detail supervisor consulted. Patient wear of diagnosis and treatment plan. Vital Signs Vital signs: Vital Signs Temperature 97.5 F L 09/23/24 11:42 Pulse Rate 70 09/23/24 11:42 Respiratory Rate 15 09/23/24 11:42 Blood Pressure 123/62 09/23/24 11:42 Pulse Oximetry 97 09/23/24 11:42 Oxygen Delivery Room Air 09/23/24 11:42 Temperature 97.9 F 09/24/24 08:00 Pulse Rate 69 09/24/24 08:37 Respiratory Rate 18 09/24/24 08:00 Blood Pressure 132/60 09/24/24 08:00 Pulse Oximetry 97 09/24/24 08:00 Oxygen Delivery Room Air 09/23/24 20:00 MDM - Extremity Injury (Upper) Lab Data 09/24/24 07:20 09/24/24 07:20 Labs: Lab Results 09/23/24 Range/Units 13:47 WBC 10.2 H (4.5-10.0) K/mm3 RBC 4.40 (4.2-5.4) M/mm3 Hgb 14.0 (12.0-15.0) g/dL Hct 41.9 (37.0-47.0) % MCV 95.2 (80-100) fl MCH 31.8 (26-34) pg MCHC 33.4 (32-36) g/dl RDW 14.1 (11.5-14.5) % Plt Count 242 (150-375) k/mm3 MPV 10.4 (7.4-10.4) fl Immature Gran % (Auto) 0.5 (0-0.5) % Neut % (Auto) 79.6 H (45.5-73.1) % Lymph % (Auto) 13.4 L (18.3-44.2) % [place] % (Auto) 5.6 (2.6-8.5) % Eos % (Auto) 0.3 (0-4.4) % Baso % (Auto) 0.6 (0.2-1.2) % Lymph # (Auto) 1.36 (0.9-3.2) K/mm3 [place] # (Auto) 0.6 (0.1-0.6) K/mm3 Eos # (Auto) 0.0 (0-0.3) K/mm3 Baso # (Auto) 0.1 (0.0-0.1) K/mm3 Abs Immat Gran (auto) 0.05 H (0.00-0.031) K/mm3 Absolute Neuts (auto) 8.1 H (1.3-6.7) K/mm3 Absolute Nucleated RBC 0.000 (0.0-0.012) K/mm3 Nucleated RBC % 0.0 (0.0-0.2) % PT 14.9 H (11.1-14.7) Seconds INR 1.1 APTT 24.0 (22.3-36.8) Seconds Sodium 138 (137-145) mmol/L Potassium 3.9 (3.4-5.0) mmol/L Chloride 103 (98-107) mmol/L Carbon Dioxide 28 (22-30) mmol/L Anion Gap 7 (4-12) mmol/L BUN 18 H (7-17) mg/dL Creatinine 0.90 (0.7-1.0) mg/dL Estim Creat Clear Calc 43 ml/min Estimated GFR 60 (59 - ) Glucose 133 H (65-110) mg/dL Calcium 9.3 (8.4-10.2) mg/dL Total Bilirubin 0.6 (0.2-1.3) mg/dL AST 30 (14-36) U/L ALT 22 (6-35) U/L Alkaline Phosphatase 82 (38-126) U/L Total Protein 7.0 (6.3-8.2) g/dL Albumin 4.2 (3.5-5.1) g/dL Blood Type O Positive Antibody Screen Negative Imaging Data Radiologist's impression: ITS Impressions Elbow X-Ray 09/23/24 13:21 IMPRESSION: 1. Transverse fracture of olecranon of proximal ulna. Chest X-Ray 09/23/24 14:10 IMPRESSION: 1. No acute cardiopulmonary disease. Discharge Plan Discharge Clinical Impression: Closed olecranon fracture Patient Disposition: Still a Patient Condition: Stable
[2024-09-23 13:51] VITALS: BP 129/77; PULSE 71; RESP 19; O2SAT 98
[2024-09-23] MEDS: MORPHINE SULFATE (*CRX) 4 MG/ML INJ IV PUSH (14:03)
[2024-09-23 14:04] LABS: Basophils Absolute Auto 0.1 K/mm3 (0.0-0.1); Basophils Percent Auto 0.6 % (0.2-1.2); Eosinophils Percent Auto 0.3 % (0-4.4); Hematocrit 41.9 % (37.0-47.0); Immature Granulocyte Absolute 0.05 K/mm3 (0.00-0.031); Immature Granulocyte Percent A 0.5 % (0-0.5); Lymphocytes Absolute Auto 1.36 K/mm3 (0.9-3.2); Lymphocytes Percent Auto 13.4 % (18.3-44.2); Mean Corpuscular HGB Conc 33.4 g/dl (32-36); Mean Corpuscular Hemoglobin 31.8 pg (26-34); Mean Corpuscular Volume 95.2 fl (80-100); Mean Platelet Volume 10.4 fl (7.4-10.4); Monocytes Absolute Auto 0.6 K/mm3 (0.1-0.6); Monocytes Percent Auto 5.6 % (2.6-8.5); Neutrophils Absolute Auto 8.1 K/mm3 (1.3-6.7); Neutrophils Percent Auto 79.6 % (45.5-73.1); Platelet Count Result 242 k/mm3 (150-375); Red Cell Distribution Width 14.1 % (11.5-14.5); White Blood Count 10.2 K/mm3 (4.5-10.0)
[2024-09-23 14:14] LABS: Alanine Aminotransferase 22 U/L (6-35); Albumin Level 4.2 g/dL (3.5-5.1); Alkaline Phosphatase 82 U/L (38-126); Anion Gap 7 mmol/L (4-12); Aspartate Amino Transferase 30 U/L (14-36); Bilirubin,Total 0.6 mg/dL (0.2-1.3); Blood Urea Nitrogen 18 mg/dL (7-17); Calcium 9.3 mg/dL (8.4-10.2); Carbon Dioxide 28 mmol/L (22-30); Chloride 103 mmol/L (98-107); Estimated CRCL calculation 43 ml/min; Estimated Glomerular Filt Rate 60; Glucose 133 mg/dL (65-110); Potassium 3.9 mmol/L (3.4-5.0); Sodium 138 mmol/L (137-145)
[2024-09-23 14:16] LABS: INR 1.1; Prothrombin Time 14.9 Seconds (11.1-14.7)
[2024-09-23 14:40] VITALS: BP 126/56; PULSE 64; RESP 14; O2SAT 97
--- NOTE | 2024-09-23 14:59 | PC.NURSE ---
called dietary and ordered lunch tray for pt at this time
[2024-09-23 15:48] VITALS: BMI 27.1
--- NOTE | 2024-09-23 16:06 | ADMGEN ---
This patient, Maria Elena Owens, was admitted to [facility] Surg Room 319-01. Patient/family oriented to hospital policies and general routines including ID bracelet, bed and alarms, visiting hours, pain management, procedures, bathroom and other care routines, personal items, smoking policy, room service/diet, and visiting hours. Information on how to activate the Rapid Response Team has been discussed. Patient/Family are encouraged to report perceived risks to care and to ask questions if they do not understand what they are told or what they should do.
[2024-09-23 16:14] VITALS: BP 130/73; PULSE 73; RESP 12; TEMP 36.4; O2SAT 98
--- NOTE | 2024-09-23 16:40 | P.CONCA_ITS ---
Assessment and Plan Assessment and plan (1) Preop cardiovascular exam: Code(s): Z01.810 - Encounter for preprocedural cardiovascular examination Status: Acute Assessment and Plan: Low cardiac risk. May proceed to noncardiac surgery without further cardiac workup. Advise to hold Eliquis for at least 2 days which would be Monday. (2) PAF (paroxysmal atrial fibrillation): Code(s): I48.0 - Paroxysmal atrial fibrillation Status: Acute Assessment and Plan: In Sinus rhythm. On Eliquis and Amiodarone. (3) HTN, goal below 140/80: Code(s): I10 - Essential (primary) hypertension Status: Acute Assessment and Plan: Stable. (4) HLD (hyperlipidemia): Code(s): E78.5 - Hyperlipidemia, unspecified Status: Acute Assessment and Plan: On Pravastatin. History of Present Illness History of Present Illness Consult date/time: 09/23/24 16:40 Reason For Visit: olecranon fracture Narrative: 78 yr old woman who is my regular cardiology patient and a patient of Dr. Min presents to ER after a fall. She has a history of PAF, LBBB, hypertension, dyslipidemia, covid infection on 12/17/20, RODRICK (did not help with BiPAP). States she tripped and fell and landed on her right elbow. Since starting Amiodarone she only noticed palpitations daily lasting 1 second only. She is able to walk probably a mile and limited by thigh/knee pains. States she snores, wakes up to use restroom and has to take a nap, and using Bipap made no difference so she stopped using it. Denies chest pain, orthopnea, PND, edema, dizziness. Cardiovascular Procedures Echo/MUGA:: 07/12/21 Echo: EF 55-60%, mild LAE, trace AI/MR, trace pericardial effusion. Electrophysiology:: 02/07/24 EKG: Sinus rhythm at 72 bpm, PVC's, LBBB, QTcc 474 ms. 03/08/23 EKG: Sinus rhythm at 66 bpm, PVC, LBBB, QTc 466 ms. 03/03/22 EKG: Sinus rhythm at 83 bpm, LBBB, Qtc 464 ms. 05/27/21 EKG: Sinus rhythm, LBBB, QTc 442 ms. 04/20/21 Holter: Sinus rhythm, HR range 57-146 bpm; average 87 bpm; 108 PAC's, 105 couplets, 122 atrial fib episodes at 0.3% burden, fastest at 174 bpm and longest at 10 beats; 18,757 PVC's, 55 couplets, 27 bigeminy and 986 trigeminy. 04/05/21 EKG: Sinus rhythm, LBBB Stress Tests:: 07/12/21 Lexiscan myoview: Negative for ischemia. 07/30/21 Sleep study: Mod RODRICK with desat to 89%. Restless leg movement. Review of Systems Review of Systems: All systems reviewed & are unremarkable except as noted in HPI and below Constitutional: Constitutional: Reports as per HPI, Denies chills and Denies fever(s) Cardiovascular: Cardiovascular: Reports as per HPI and Denies chest pain Respiratory: Respiratory: Reports as per HPI and Denies dyspnea Gastrointestinal: Gastrointestinal: Reports as per HPI and Denies abdominal pain Genitourinary: Genitourinary: Reports as per HPI and Denies dysuria Musculoskeletal: Musculoskeletal: Reports as per HPI and Reports arthralgias Neurologic: Reports as per HPI, Denies dizziness and Denies syncope [facility] Past Medical History Medical History Brain tumor COVID-19 Gastroesophageal reflux disease without esophagitis History of kidney stones HLD (hyperlipidemia) HTN, goal below 140/80 Mitral valve prolapse Neuropathy Osteoporosis PAF (paroxysmal atrial fibrillation) Surgical History Surgical History History of cholecystectomy History of craniotomy History of hysterectomy Family History Family History Father Family history of multiple sclerosis Patient's father is Mother Hypertension Cerebrovascular accident Family history of transient ischemic attacks Family history of congestive heart failure Patient's mother is Sibling Hypertension Family history of elevated blood lipids Family history of coronary artery disease Patient's sister is in good health Patient's brother is in good health Social History Social History Smoking packs per day: 0.5 Smoking cigarettes per day: 10.0 Years smoked: 10 Smoking pack-years: 5.00 Smoking status: Former smoker Tobacco type: cigarettes Second hand tobacco smoke exposure: No Smoking end date: 11/27/1962 Alcohol intake: never Substance use: never Substance use type: does not use Do You Feel Safe in your Home?: Yes Lack of Transportation: No Lack of Food: Never True Current Housing: I Have Housing Concerned About Future Housing: No Difficulty Paying Gas/Electric Bills: No Difficulty Paying for Meds: No Currently Unemployed: No Education: Trade/Vocational Certificate Difficulty w/ Childcare or Family Care: No Living arrangements: with family Spiritual care concerns: No Meds Home Medications and Allergies Home Medications Medication Instructions Recorded Confirmed Type calcium carbonate (Calcium 500) 500 mg PO BID 02/08/23 09/04/24 History cholecalciferol (vitamin D3) 25 25 mcg PO DAILY 02/08/23 09/04/24 History mcg (1,000 unit) capsule ferrous sulfate 325 mg (65 mg 325 mg PO DAILY 02/08/23 09/04/24 History iron) tablet magnesium 250 mg tablet 250 mg PO DAILY 02/08/23 09/04/24 History mecobalamin (vitamin B12) 500 mcg 500 mcg PO DAILY 02/08/23 09/04/24 History chewable tablet multivitamin 1 tablet PO DAILY 02/08/23 09/04/24 History omega-3 fatty acids-fish oil 360 1 cap PO BID 02/08/23 09/04/24 History mg-1,200 mg capsule (Fish Oil) famotidine 40 mg tablet (Pepcid) 40 mg PO DAILY #10 tabs 07/07/23 09/04/24 Rx apixaban 5 mg tablet (Eliquis) See Rx Instructions .Route 07/17/23 09/04/24 Rx .COMPLEX #60 tabs omeprazole 40 mg capsule,delayed 40 mg PO DAILY #90 caps 02/21/24 09/04/24 Rx release amiodarone 200 mg tablet See Rx Instructions .Route 05/20/24 09/04/24 Rx .COMPLEX #45 tabs losartan 100 See Rx Instructions .Route 08/12/24 09/04/24 Rx mg-hydrochlorothiazide 25 mg tablet .COMPLEX #90 tabs pravastatin 40 mg tablet See Rx Instructions .Route 08/12/24 09/04/24 Rx .COMPLEX #90 tabs duloxetine 20 mg capsule,delayed See Rx Instructions .Route 09/16/24 Rx release .COMPLEX #180 caps Allergies Allergy/AdvReac Type Severity Reaction Status Date / Time No Known Allergies Allergy Verified 09/04/24 08:56 Vital Signs Vital Signs - 24 hr 09/23/24 11:42 09/23/24 13:51 09/23/24 14:40 Temperature 97.5 F L Pulse Rate 70 71 64 Respiratory Rate 15 19 14 Blood Pressure 123/62 129/77 126/56 L Pulse Oximetry 97 98 97 Oxygen Delivery Room Air 09/23/24 16:14 Temperature 97.6 F Pulse Rate 73 Respiratory Rate 12 Blood Pressure 130/73 Pulse Oximetry 98 Oxygen Delivery Exam Const: General: cooperative, healthy appearing and comfortable Resp: Auscultation: clear to auscultation bilaterally, no crackles, no rales, no rhonchi and no wheezes Cardio: Rate: regular rate Rhythm: regular rhythm Heart sounds: no murmurs Peripheral pulses: dorsalis pedis present GI: GI Palp: No abdominal tenderness and Yes Soft to palpation Neuro: General: oriented to person, oriented to place and oriented to time Extrem: Right lower extremity: no edema Left lower extremity: no edema Results Labs and Meds 09/23/24 13:47 09/23/24 13:47 Lab results: Cardiac Enzymes 09/23/24 Range/Units 13:47 AST 30 (14-36) U/L Coagulation 09/23/24 Range/Units 13:47 PT 14.9 H (11.1-14.7) Seconds APTT 24.0 (22.3-36.8) Seconds CBC 09/23/24 Range/Units 13:47 WBC 10.2 H (4.5-10.0) K/mm3 RBC 4.40 (4.2-5.4) M/mm3 Hgb 14.0 (12.0-15.0) g/dL Hct 41.9 (37.0-47.0) % Plt Count 242 (150-375) k/mm3 Lymph # (Auto) 1.36 (0.9-3.2) K/mm3 Mason # (Auto) 0.6 (0.1-0.6) K/mm3 Eos # (Auto) 0.0 (0-0.3) K/mm3 Baso # (Auto) 0.1 (0.0-0.1) K/mm3 Comprehensive Metabolic Panel 09/23/24 Range/Units 13:47 Sodium 138 (137-145) mmol/L Potassium 3.9 (3.4-5.0) mmol/L Chloride 103 (98-107) mmol/L Carbon Dioxide 28 (22-30) mmol/L BUN 18 H (7-17) mg/dL Creatinine 0.90 (0.7-1.0) mg/dL Glucose 133 H (65-110) mg/dL Calcium 9.3 (8.4-10.2) mg/dL AST 30 (14-36) U/L ALT 22 (6-35) U/L Alkaline Phosphatase 82 (38-126) U/L Total Protein 7.0 (6.3-8.2) g/dL Albumin 4.2 (3.5-5.1) g/dL Patient Weight 09/23/24 23:59 Weight 71.9 kg
--- NOTE | 2024-09-23 17:14 | P.HP_ITS ---
H&P: HPI History of Present Illness Date/Time: 09/23/24 17:14 Chief Complaint: right elbow pain, and Fall Narrative: 78-year-old female with history of atrial fibrillation On Eliquis presents to the hospital after she tripped and fell and hurt her elbow. in the ED she has leukocytosis at 10.2, right elbow x-ray shows a transverse fracture of the olecranon of the proximal ulna, chest x-ray shows no acute process . Patient states that she was in her garage when she tripped and fell onto her right elbow. Patient does not give much details about the fall. However due to acute pain she came to the hospital. Patient has leukocytosis at 10.2, INR of 1.1 an elevated glucose at 133, UA is pending. cardiology has been consulted for surgical clearance for patient. Review of Systems Constitutional: Constitutional: Reports no additional constitutional complaints Eyes: Eyes: Reports no additional eye complaints ENT: Reports as per HPI Cardiovascular: Cardiovascular: Reports no additional cardiovascular complaints Respiratory: Respiratory: Reports no additional respiratory complaints Gastrointestinal: Gastrointestinal: Reports no additional gastrointestinal complaints Genitourinary: Genitourinary: Reports no additional female genitourinary complaints Musculoskeletal: Comments: Right upper extremity elbow pain Neurologic: Reports as per HPI Psychiatric: Psychiatric: Reports no additional psychiatric complaints [facility] Past Medical History Medical History Brain tumor COVID-19 Gastroesophageal reflux disease without esophagitis History of kidney stones HLD (hyperlipidemia) HTN, goal below 140/80 Mitral valve prolapse Neuropathy Osteoporosis PAF (paroxysmal atrial fibrillation) Surgical History Surgical History History of cholecystectomy History of craniotomy History of hysterectomy Family History Family History Father Family history of multiple sclerosis Patient's father is Mother Hypertension Cerebrovascular accident Family history of transient ischemic attacks Family history of congestive heart failure Patient's mother is Sibling Hypertension Family history of elevated blood lipids Family history of coronary artery disease Patient's sister is in good health Patient's brother is in good health Social History Social History Smoking packs per day: 0.5 Smoking cigarettes per day: 10.0 Years smoked: 10 Smoking pack-years: 5.00 Smoking status: Former smoker Tobacco type: cigarettes Second hand tobacco smoke exposure: No Smoking end date: 11/27/1962 Alcohol intake: never Substance use: never Substance use type: does not use Do You Feel Safe in your Home?: Yes Lack of Transportation: No Lack of Food: Never True Current Housing: I Have Housing Concerned About Future Housing: No Difficulty Paying Gas/Electric Bills: No Difficulty Paying for Meds: No Currently Unemployed: No Education: Trade/Vocational Certificate Difficulty w/ Childcare or Family Care: No Living arrangements: with family Spiritual care concerns: No Meds Home Medications and Allergies Home Medications Medication Instructions Recorded Confirmed Type calcium carbonate (Calcium 500) 500 mg PO BID 02/08/23 09/23/24 History cholecalciferol (vitamin D3) 25 25 mcg PO DAILY 02/08/23 09/23/24 History mcg (1,000 unit) capsule ferrous sulfate 325 mg (65 mg 325 mg PO DAILY 02/08/23 09/23/24 History iron) tablet magnesium 250 mg tablet 250 mg PO DAILY 02/08/23 09/23/24 History mecobalamin (vitamin B12) 500 mcg 500 mcg PO DAILY 02/08/23 09/23/24 History chewable tablet multivitamin 1 tablet PO DAILY 02/08/23 09/23/24 History omega-3 fatty acids-fish oil 360 1 cap PO BID 02/08/23 09/23/24 History mg-1,200 mg capsule (Fish Oil) famotidine 40 mg tablet (Pepcid) 40 mg PO DAILY #10 tabs 07/07/23 09/23/24 Rx omeprazole 40 mg capsule,delayed 40 mg PO DAILY #90 caps 02/21/24 09/23/24 Rx release amiodarone 200 mg tablet See Rx Instructions .Route 05/20/24 09/23/24 Rx .COMPLEX #45 tabs losartan 100 See Rx Instructions .Route 08/12/24 09/23/24 Rx mg-hydrochlorothiazide 25 mg tablet .COMPLEX #90 tabs pravastatin 40 mg tablet See Rx Instructions .Route 08/12/24 09/23/24 Rx .COMPLEX #90 tabs duloxetine 20 mg capsule,delayed See Rx Instructions .Route 09/16/24 09/23/24 Rx release .COMPLEX #180 caps apixaban 5 mg tablet (Eliquis) See Rx Instructions .Route 09/23/24 09/23/24 History .COMPLEX afib Allergies Allergy/AdvReac Type Severity Reaction Status Date / Time No Known Allergies Allergy Verified 09/04/24 08:56 Vital Signs Vital Signs - 24 hr 09/23/24 11:42 09/23/24 13:51 09/23/24 14:40 Temperature 97.5 F L Pulse Rate 70 71 64 Respiratory Rate 15 19 14 Blood Pressure 123/62 129/77 126/56 L Pulse Oximetry 97 98 97 Oxygen Delivery Room Air 09/23/24 16:14 Temperature 97.6 F Pulse Rate 73 Respiratory Rate 12 Blood Pressure 130/73 Pulse Oximetry 98 Oxygen Delivery Exam Narrative: General: well appearing, appears stated age. HEENT: normocephalic, atraumatic. Mucous membranes moist. EOMI, PERRLA, bilateral sclera anicteric, no conjunctival injection. Neck supple without JVD, lymphadenopathy, or bruit. Respiratory: clear to ascultation bilaterally. No rales/rhonic/wheezes. Cardiovascular: Regular rate and rhythm, normal S1-S2 upon ascultation. No murmurs, rubs, or clicks. PMI is nondisplaced, capillary refill less than 3 second. Abdomen: Soft, round, no pulsatile masses, nondistended and nontender. No rebound, no guarding. No CVA tenderness, no hepatosplenomegaly. Bowel sounds present to all four quadrants. No high pitch or tinkling sounds, resonant to percussion. Extremities: No cyanosis, clubbing, or edema present. Pulses are palpable 2/2. right upper extremity in splint and sling Neuro: Alert and orientated x 4. PERRLA. Cranial nerves 2-12 intact without focal deficit. Skin: Warm, dry, and intact, without rash, erythema, or lesion. Psych: pleasant, cooperative, normal speech, normal affect, no hallucinations, no dysarthia Const: General: comfortable and no acute distress HENMT: Face/Nose/Sinus: Normal nares present Mouth: Yes moist mucous membranes Eyes: General: appearance normal, both eyes and all related structures H&P: Results Labs Labs: Short CBC 09/23/24 Range/Units 13:47 WBC 10.2 H (4.5-10.0) K/mm3 Hgb 14.0 (12.0-15.0) g/dL Hct 41.9 (37.0-47.0) % Plt Count 242 (150-375) k/mm3 [facility] 09/23/24 13:47 Sodium 138 Potassium 3.9 Chloride 103 Carbon Dioxide 28 BUN 18 H Creatinine 0.90 Glucose 133 H Calcium 9.3 Liver Function 09/23/24 Range/Units 13:47 Total Bilirubin 0.6 (0.2-1.3) mg/dL AST 30 (14-36) U/L ALT 22 (6-35) U/L Alkaline Phosphatase 82 (38-126) U/L Albumin 4.2 (3.5-5.1) g/dL Assessment and Plan Assessment and plan (1) Olecranon fracture: Code(s): S52.023A - Displaced fracture of olecranon process without intraarticular extension of unspecified ulna, initial encounter for closed fracture Status: Acute Assessment and Plan: right after a trip and fall Orthopedics consult pending recommendations Patient placed on NPO after midnight for orthopedic evaluation, per cardiology's recommendations waiting 2 days of holding Eliquis before proceeding with orthopedic surgery, once approved by Orthopedics patient can have a heart healthy diet. Nonweightbearing right upper extremity and sling Pain control and bowel protocol PT and OT evaluation (2) Leukocytosis: Code(s): D72.829 - Elevated white blood cell count, unspecified Status: Acute Assessment and Plan: UA pending chest x-ray no acute process no signs of soft tissue infection (3) Osteoporosis: Code(s): M81.0 - Age-related osteoporosis without current pathological fracture Status: Acute Assessment and Plan: restart calcium and vitamin-D (4) PAF (paroxysmal atrial fibrillation): Code(s): I48.0 - Paroxysmal atrial fibrillation Status: Acute Assessment and Plan: Eliquis on hold cardiology consulted for surgical clearance per cardiology Low cardiac risk. May proceed to noncardiac surgery without further cardiac workup. Advise to hold Eliquis for at least 2 days which would be Monday. restart amiodarone (5) HTN, goal below 140/80: Code(s): I10 - Essential (primary) hypertension Status: Acute Assessment and Plan: restarted on Cozaar and hydrochlorothiazide Quality VTE Prophylaxis VTE prophylaxis: mechanical ordered and pharmacologic ordered Hospitalist MIPS Advance Care Plan I have confirmed that the patient's Advanced Care Plan is present, code status is documented, or surrogate decision maker is listed in patient medical record.: Yes Medication Reconciliation I have utilized all available resources to obtain, update and review the patients current medications (includes all prescriptions, OTC, herbals, cannabis, and nutritional supplements).: Yes
[2024-09-23] MEDS: ACETAMINOPHEN 325 MG TABLET 650 MG PO ×2 (18:23→20:32)
[2024-09-23 20:00] VITALS: BP 141/62; PULSE 67; RESP 18; TEMP 36.6; O2SAT 99
[2024-09-24] VITALS (8 sets, daily range): BP systolic 113–157; BP diastolic 51–81; PULSE 66–80; RESP 16–18; TEMP 36.6–37.2; O2SAT 96–99
[2024-09-24 00:16] LABS: Add Urine Microscopic? YES; Appearance Urine Clear (Clear); Bacteria Urine None Seen /hpf; Bilirubin Urine Negative (Negative); Blood Urine Negative (Negative); Color Urine Yellow (Yellow); Glucose Urine UA Negative (Negative); Ketones Urine Negative (Negative); Leukocyte Esterase Ur 2+ LEU/UL (Negative); Nitrate Urine Negative (Negative); Non Pathogenic Casts 0-2; Protein Urine Negative (Negative); RBC Urine 0-2 /hpf (0-2); Specific Grav Ur 1.016 (1.001-1.035); Squamous Epithelial Cell Urine None Seen /hpf (Few); WBC Urine 21-50 /hpf (0-3)
[2024-09-24] MEDS: ACETAMINOPHEN 325 MG TABLET 650 MG PO ×6 (01:00→20:49)
--- NOTE | 2024-09-24 06:33 | ECG_ITS ---
Test Date: 2024-09-24 06:44:53 Measurements Intervals [place] Rate: 59 P: 147 TN: 216 QRS: 135 QRSD: 152 T: 154 QT: 481 QTc: 478 Interpretive Statements SINUS BRADYCARDIA WITH FIRST DEGREE AV BLOCK RIGHT AXIS DEVIATION [QRS AXIS > 100] INTRAVENTRICULAR CONDUCTION DELAY [130+ ms QRS DURATION] No previous ECG available for comparison Electronically Signed On 09-24-2024 09:45:38 CDT by Surekha Aguilar M.D.
[2024-09-24 06:42] LABS: Glucose Point of Care 131 mg/dl (65-105)
[2024-09-24 07:43] LABS: Basophils Percent Auto 0.6 % (0.2-1.2); Eosinophils Absolute Auto 0.1 K/mm3 (0-0.3); Hematocrit 39.3 % (37.0-47.0); Hemoglobin 13.4 g/dL (12.0-15.0); Immature Granulocyte Absolute 0.02 K/mm3 (0.00-0.031); Immature Granulocyte Percent A 0.3 % (0-0.5); Lymphocytes Absolute Auto 1.89 K/mm3 (0.9-3.2); Lymphocytes Percent Auto 26.3 % (18.3-44.2); Mean Corpuscular HGB Conc 34.1 g/dl (32-36); Mean Corpuscular Hemoglobin 32.2 pg (26-34); Mean Corpuscular Volume 94.5 fl (80-100); Mean Platelet Volume 10.5 fl (7.4-10.4); Monocytes Absolute Auto 0.6 K/mm3 (0.1-0.6); Monocytes Percent Auto 8.2 % (2.6-8.5); Neutrophils Absolute Auto 4.6 K/mm3 (1.3-6.7); Neutrophils Percent Auto 63.6 % (45.5-73.1); Platelet Count Result 232 k/mm3 (150-375); Red Blood Count 4.16 M/mm3 (4.2-5.4); White Blood Count 7.2 K/mm3 (4.5-10.0)
--- NOTE | 2024-09-24 07:49 | P.PNCA_ITS ---
Progress Note: A&P Assessment and Plan (1) Preop cardiovascular exam: Code(s): Z01.810 - Encounter for preprocedural cardiovascular examination Status: Acute Assessment and Plan: Low cardiac risk. May proceed to noncardiac surgery without further cardiac workup. Advise to hold Eliquis for at least 2 days which would be Monday. (2) PAF (paroxysmal atrial fibrillation): Code(s): I48.0 - Paroxysmal atrial fibrillation Status: Acute Assessment and Plan: In Sinus rhythm. On Eliquis and Amiodarone. (3) HTN, goal below 140/80: Code(s): I10 - Essential (primary) hypertension Status: Acute Assessment and Plan: Stable. (4) HLD (hyperlipidemia): Code(s): E78.5 - Hyperlipidemia, unspecified Status: Acute Assessment and Plan: On Pravastatin. Subjective Date/time seen: 09/24/24 07:49 Interval history: Had an episode of sob and perspiring an hour ago with pain in right elbow. Denies chest pain or sob. Exam Const: General: cooperative, healthy appearing and comfortable Orientation/consciousness: oriented to person, oriented to place and oriented to time Resp: Auscultation: clear to auscultation bilaterally, no crackles, no rales, no rhonchi and no wheezes Cardio: Rate: regular rate Rhythm: regular rhythm Heart sounds: no murmurs Peripheral pulses: dorsalis pedis present Neuro: General: oriented to person, oriented to place and oriented to time Extrem: Right lower extremity: no edema Left lower extremity: no edema Objective Data Vital Signs Vital Signs: Vital Signs - 24 hr 09/23/24 11:42 09/23/24 13:51 09/23/24 14:40 Temperature 97.5 F L Pulse Rate 70 71 64 Respiratory Rate 15 19 14 Blood Pressure 123/62 129/77 126/56 L Pulse Oximetry 97 98 97 Oxygen Delivery Room Air 09/23/24 16:14 09/23/24 20:00 09/24/24 00:00 Temperature 97.6 F 97.8 F 98.2 F Pulse Rate 73 67 66 Respiratory Rate 12 18 16 Blood Pressure 130/73 141/62 H 121/62 Pulse Oximetry 98 99 98 Oxygen Delivery 09/23/24 20:00 09/24/24 03:51 Temperature 97.8 F Pulse Rate 69 Respiratory Rate 17 Blood Pressure 157/81 H Pulse Oximetry 98 Oxygen Delivery Room Air Intake/Output Intake/Output: Intake & Output 09/21/24 09/22/24 09/23/24 09/24/24 23:59 23:59 23:59 23:59 Intake Total 480 200 Output Total 900 Balance 480 -700 Meds/Results Medications: Active Medications Generic Name Dose Route Start Last Admin Trade Name Freq PRN Reason Stop Dose Admin Acetaminophen 650 mg 09/23/24 17:30 Acetaminophen 325 Mg Tablet PO Q4H PRN Mild Pain (1-3) or Fever Acetaminophen 650 mg 09/23/24 17:34 09/24/24 05:53 Acetaminophen 325 Mg Tablet PO 650 mg Q4HR [facility] Administration Hydrocodone Bitart/Acetaminophen 1 tab 09/23/24 14:48 Hydrocodone/Acetaminophen (*Crx) 5-325 Mg Tablet PO Q4H PRN Pain Rated 4-6 Amiodarone HCl 100 mg 09/24/24 09:00 Amiodarone Hcl 100 Mg Tablet BY MOUTH DAILY [facility] Calcium Carbonate 500 mg 09/24/24 09:00 Calcium Carbonate (Tums) 500 Mg (200 Mg Elemental) PO BID [facility] Docusate Sodium 100 mg 09/24/24 09:00 Docusate Sodium 100 Mg Capsule PO BID [facility] Duloxetine HCl 20 mg 09/24/24 09:00 Duloxetine Hcl 20 Mg Capsule.Dr BY MOUTH BID [facility] Enoxaparin Sodium 40 mg 09/24/24 14:00 Enoxaparin 40 Mg/0.4 Ml Syringe SUB-Q DAILY [facility] Famotidine 40 mg 09/24/24 09:00 Famotidine 20 Mg Tablet PO DAILY [facility] Ferrous Sulfate 325 mg 09/24/24 09:00 Ferrous Sulfate [address] BY MOUTH DAILY [facility] Hydrochlorothiazide 25 mg 09/24/24 09:00 Hydrochlorothiazide 25 Mg Tablet PO QAM [facility] Losartan Potassium 100 mg 09/24/24 09:00 Losartan Potassium 100 Mg Tablet PO DAILY [facility] Morphine Sulfate 2 mg 09/23/24 14:48 Morphine Sulfate (*Crx) 2 Mg/Ml Inj IV PUSH Q2H PRN Pain Rated 7-10 Ondansetron HCl 4 mg 09/23/24 14:48 Ondansetron Inj 4 Mg/2 Ml Vial IV PUSH Q4H PRN Nausea Pantoprazole Sodium 40 mg 09/24/24 09:00 Pantoprazole 40 Mg Tablet PO BID [facility] Pravastatin Sodium 20 mg 09/24/24 09:00 Pravastatin Sodium 20 Mg Tablet BY MOUTH DAILY [facility] Vitamin D 1,000 units 09/24/24 09:00 Cholecalciferol 1,000 Units Tablet PO DAILY [facility] Radiology Results: ITS Impressions Elbow X-Ray 09/23/24 13:21 IMPRESSION: 1. Transverse fracture of olecranon of proximal ulna. Chest X-Ray 09/24/24 07:13 Impression: No acute abnormality. Labs Labs: Laboratory Results - last 24 hr 09/23/24 09/24/24 09/24/24 13:47 00:06 06:27 WBC 10.2 H RBC 4.40 Hgb 14.0 Hct 41.9 MCV 95.2 MCH 31.8 MCHC 33.4 RDW 14.1 Plt Count 242 MPV 10.4 Immature Gran % (Auto) 0.5 Neut % (Auto) 79.6 H Lymph % (Auto) 13.4 L [place] % (Auto) 5.6 Eos % (Auto) 0.3 Baso % (Auto) 0.6 Lymph # (Auto) 1.36 [place]kin # (Auto) 0.6 Eos # (Auto) 0.0 Baso # (Auto) 0.1 Abs Immat Gran (auto) 0.05 H Absolute Neuts (auto) 8.1 H Absolute Nucleated RBC 0.000 Nucleated RBC % 0.0 PT 14.9 H INR 1.1 APTT 24.0 Sodium 138 Potassium 3.9 Chloride 103 Carbon Dioxide 28 Anion Gap 7 BUN 18 H Creatinine 0.90 Estim Creat Clear Calc 43 Estimated GFR 60 Glucose 133 H POC Capillary Glucose 131 H Calcium 9.3 Total Bilirubin 0.6 AST 30 ALT 22 Alkaline Phosphatase 82 Total Protein 7.0 Albumin 4.2 Urine Color Yellow Urine Appearance Clear Urine pH 7.0 Ur Specific [place] 1.016 Urine Protein Negative Urine Glucose (UA) Negative Urine Ketones Negative Ur Blood (Man) Negative Urine Nitrate Negative Urine Bilirubin Negative Urine Urobilinogen 1.0 Ur Leukocyte Esterase 2+ H Urine RBC 0-2 Urine WBC 21-50 H Ur Squamous Epith Cells None seen Urine Bacteria None seen Urine Casts 0-2 Blood Type O Positive Antibody Screen Negative 09/24/24 07:20 WBC 7.2 RBC 4.16 L Hgb 13.4 Hct 39.3 MCV 94.5 MCH 32.2 MCHC 34.1 RDW 14.0 Plt Count 232 MPV 10.5 H Immature Gran % (Auto) 0.3 Neut % (Auto) 63.6 Lymph % (Auto) 26.3 Pitkin % (Auto) 8.2 Eos % (Auto) 1.0 Baso % (Auto) 0.6 Lymph # (Auto) 1.89 [place]kin # (Auto) 0.6 Eos # (Auto) 0.1 Baso # (Auto) 0.0 Abs Immat Gran (auto) 0.02 Absolute Neuts (auto) 4.6 Absolute Nucleated RBC 0.000 Nucleated RBC % 0.0 PT INR APTT Sodium Potassium Chloride Carbon Dioxide Anion Gap BUN Creatinine Estim Creat Clear Calc Estimated GFR Glucose POC Capillary Glucose Calcium Total Bilirubin AST ALT Alkaline Phosphatase Total Protein Albumin Urine Color Urine Appearance Urine pH Ur Specific [place] Urine Protein Urine Glucose (UA) Urine Ketones Ur Blood (Man) Urine Nitrate Urine Bilirubin Urine Urobilinogen Ur Leukocyte Esterase Urine RBC Urine WBC Ur Squamous Epith Cells Urine Bacteria Urine Casts Blood Type Antibody Screen
[2024-09-24 07:56] LABS: Anion Gap 11 mmol/L (4-12); Blood Urea Nitrogen 16 mg/dL (7-17); Calcium 8.9 mg/dL (8.4-10.2); Carbon Dioxide 25 mmol/L (22-30); Chloride 103 mmol/L (98-107); Estimated CRCL calculation 48 ml/min; Estimated Glomerular Filt Rate > 60; Glucose 131 mg/dL (65-110); Potassium 3.4 mmol/L (3.4-5.0); Sodium 139 mmol/L (137-145)
[2024-09-24] MEDS: LOSARTAN POTASSIUM 100 MG TABLET PO (08:36)
[2024-09-24] MEDS: FAMOTIDINE 20 MG TABLET 40 MG PO (08:36)
[2024-09-24] MEDS: hydroCHLOROthiazide 25 MG TABLET PO (08:36)
[2024-09-24] MEDS: CHOLECALCIFEROL 1,000 UNITS TABLET 1000 UNITS PO (08:36)
[2024-09-24] MEDS: DULoxetine HCL 20 MG CAPSULE.DR BY MOUTH ×2 (08:36→17:28)
[2024-09-24] MEDS: PRAVASTATIN SODIUM 20 MG TABLET BY MOUTH (08:36)
[2024-09-24] MEDS: PANTOPRAZOLE 40 MG TABLET PO (08:36)
[2024-09-24] MEDS: AMIODARONE HCL 100 MG TABLET BY MOUTH (08:37)
[2024-09-24] MEDS: FERROUS SULFATE 325 MG TABLET DR BY MOUTH (08:37)
--- NOTE | 2024-09-24 12:56 | PM.CNOR ---
Assessment and Plan Assessment and plan (1) Closed olecranon fracture: Qualifiers: Encounter type: initial encounter Laterality: right Qualified Code(s): S52.021A - Displaced fracture of olecranon process without intraarticular extension of right ulna, initial encounter for closed fracture Code(s): S52.023A - Displaced fracture of olecranon process without intraarticular extension of unspecified ulna, initial encounter for closed fracture Status: Acute Assessment and Plan: Patient is a 78-year-old female who fell yesterday on to concrete and sustained a very displaced fracture of right olecranon process which is proximally retracted 27 mm. The skin was reportedly intact. She has 2 x-ray views. They are not optimally aligned for assessing other associated fractures or subluxation of the ulnohumeral articulation. Therefore I have ordered a CT scan. She denies any other injury. She is very active with quilting and gardening. Her past medical history is significant for atrial fibrillation. She takes half of a 5 mg Eliquis tablet every 12 hours. History of craniotomy for benign brain tumor. History of osteoporosis that was treated with several years of bisphosphonates. History of atypical femur fracture left treated with intramedullary rodding at [facility] you see 2 years ago and prophylactic intramedullary rodding of the right femur after healing of the 1st fracture. Most recent bone density test showed osteopenia. Physical examination On exam she is in anterior splint on the right arm. I loosened around her fingers and she was comfortable had normal strength and reported normal light touch sensation all 5 digits I could not access very well but she had normal color and capillary refill symmetric with the left hand. She was able to raise the arm overhead without pain at the right shoulder. She denied any other injury she is completely alert and oriented and an excellent historian. Assessment and plan Her x-rays show a severely displaced right olecranon fracture without obvious comminution or associated injuries but CT scan is ordered. I have recommended open reduction and internal fixation with Acumed locking plate as I believe she does have some degree of subluxation of the distal 1/2 of the trochlear notch and that will give more stable fixation. The CT scan will give better assessment of that. I have explained that most patients do elect to have the plate removed at some point down the road because it tends to be prominent and cause irritation if 1 leans on the elbow especially. I have discussed risks of surgery including posttraumatic arthritis, nonunion, loss of fixation, and infection as well as medical complications of anesthesia. Her last dose of Eliquis was yesterday morning. We will plan to proceed tomorrow mid day as discussed so that 48 hours will have passed since her last dose. I discontinued the order for Lovenox scheduled for. Today. The Eliquis will still be partially active and there is risk that the addition of Lovenox will cause further bleeding swelling which may necessitate delay of surgery tomorrow if the skin is not suited because of excessive swelling due to hematoma formation. She did have minimal elevation of white blood count yesterday which has normalized today. She had 21-50 white blood cells per high-power field on her urinalysis and culture is pending. No Bacteria were seen in the urine. Dr. Hernandez has seen her today and feels that she the surgery without further cardiac evaluation. 55 minutes were spent in total care the today History of Present Illness HPI Consult date: 09/24/24 Chief complaint: olecranon fracture PMFSH Past Medical History Medical History Brain tumor COVID-19 Gastroesophageal reflux disease without esophagitis History of kidney stones HLD (hyperlipidemia) HTN, goal below 140/80 Mitral valve prolapse Neuropathy Osteoporosis PAF (paroxysmal atrial fibrillation) Surgical History Surgical History History of cholecystectomy History of craniotomy History of hysterectomy Family History Family History Father Family history of multiple sclerosis Patient's father is Mother Hypertension Cerebrovascular accident Family history of transient ischemic attacks Family history of congestive heart failure Patient's mother is Sibling Hypertension Family history of elevated blood lipids Family history of coronary artery disease Patient's sister is in good health Patient's brother is in good health Social History Social History Smoking packs per day: 0.5 Smoking cigarettes per day: 10.0 Years smoked: 10 Smoking pack-years: 5.00 Smoking status: Former smoker Tobacco type: cigarettes Second hand tobacco smoke exposure: No Smoking end date: 11/27/1962 Alcohol intake: never Substance use: never Substance use type: does not use Do You Feel Safe in your Home?: Yes Lack of Transportation: No Lack of Food: Never True Current Housing: I Have Housing Concerned About Future Housing: No Difficulty Paying Gas/Electric Bills: No Difficulty Paying for Meds: No Currently Unemployed: No Education: Trade/Vocational Certificate Difficulty w/ Childcare or Family Care: No Living arrangements: with family Spiritual care concerns: No Meds Home Medications and Allergies Home Medications Medication Instructions Recorded Confirmed Type calcium carbonate (Calcium 500) 500 mg PO BID 02/08/23 09/23/24 History cholecalciferol (vitamin D3) 25 25 mcg PO DAILY 02/08/23 09/23/24 History mcg (1,000 unit) capsule ferrous sulfate 325 mg (65 mg 325 mg PO DAILY 02/08/23 09/23/24 History iron) tablet magnesium 250 mg tablet 250 mg PO DAILY 02/08/23 09/23/24 History mecobalamin (vitamin B12) 500 mcg 500 mcg PO DAILY 02/08/23 09/23/24 History chewable tablet multivitamin 1 tablet PO DAILY 02/08/23 09/23/24 History omega-3 fatty acids-fish oil 360 1 cap PO BID 02/08/23 09/23/24 History mg-1,200 mg capsule (Fish Oil) famotidine 40 mg tablet (Pepcid) 40 mg PO DAILY #10 tabs 07/07/23 09/23/24 Rx omeprazole 40 mg capsule,delayed 40 mg PO DAILY #90 caps 02/21/24 09/23/24 Rx release amiodarone 200 mg tablet See Rx Instructions .Route 05/20/24 09/23/24 Rx .COMPLEX #45 tabs losartan 100 See Rx Instructions .Route 08/12/24 09/23/24 Rx mg-hydrochlorothiazide 25 mg tablet .COMPLEX #90 tabs pravastatin 40 mg tablet See Rx Instructions .Route 08/12/24 09/23/24 Rx .COMPLEX #90 tabs duloxetine 20 mg capsule,delayed See Rx Instructions .Route 09/16/24 09/23/24 Rx release .COMPLEX #180 caps apixaban 5 mg tablet (Eliquis) See Rx Instructions .Route 09/23/24 09/23/24 History .COMPLEX afib Allergies Allergy/AdvReac Type Severity Reaction Status Date / Time No Known Allergies Allergy Verified 09/04/24 08:56 Vital Signs Vital Signs - 24 hr 09/23/24 13:51 09/23/24 14:40 09/23/24 16:14 Temperature 36.4 C Pulse Rate 71 64 73 Respiratory Rate 19 14 12 Blood Pressure 129/77 126/56 L 130/73 Pulse Oximetry 98 97 98 Oxygen Delivery 09/23/24 20:00 09/24/24 00:00 09/23/24 20:00 Temperature 36.6 C 36.8 C Pulse Rate 67 66 Respiratory Rate 18 16 Blood Pressure 141/62 H 121/62 Pulse Oximetry 99 98 Oxygen Delivery Room Air 09/24/24 03:51 09/24/24 08:37 09/24/24 08:00 Temperature 36.6 C 36.6 C Pulse Rate 69 69 80 Respiratory Rate 17 18 Blood Pressure 157/81 H 132/60 Pulse Oximetry 98 97 Oxygen Delivery 09/24/24 08:00 Temperature Pulse Rate Respiratory Rate Blood Pressure Pulse Oximetry Oxygen Delivery Room Air Results Labs 09/24/24 07:20 09/24/24 07:20 Labs: Abnormal lab results 09/23/24 09/24/24 09/24/24 Range/Units 13:47 00:06 06:27 WBC 10.2 H (4.5-10.0) K/mm3 RBC (4.2-5.4) M/mm3 MPV (7.4-10.4) fl Neut % (Auto) 79.6 H (45.5-73.1) % Lymph % (Auto) 13.4 L (18.3-44.2) % Abs Immat Gran (auto) 0.05 H (0.00-0.031) K/mm3 Absolute Neuts (auto) 8.1 H (1.3-6.7) K/mm3 PT 14.9 H (11.1-14.7) Seconds BUN 18 H (7-17) mg/dL Glucose 133 H (65-110) mg/dL POC Capillary Glucose 131 H (65-105) mg/dl Ur Leukocyte Esterase 2+ H (Negative) YAHAIRA/UL Urine WBC 21-50 H (0-3) /hpf 09/24/24 Range/Units 07:20 WBC (4.5-10.0) K/mm3 RBC 4.16 L (4.2-5.4) M/mm3 MPV 10.5 H (7.4-10.4) fl Neut % (Auto) (45.5-73.1) % Lymph % (Auto) (18.3-44.2) % Abs Immat Gran (auto) (0.00-0.031) K/mm3 Absolute Neuts (auto) (1.3-6.7) K/mm3 PT (11.1-14.7) Seconds BUN (7-17) mg/dL Glucose 131 H (65-110) mg/dL POC Capillary Glucose (65-105) mg/dl Ur Leukocyte Esterase (Negative) YAHAIRA/UL Urine WBC (0-3) /hpf H & H 09/23/24 09/24/24 Range/Units 13:47 07:20 Hgb 14.0 13.4 (12.0-15.0) g/dL Hct 41.9 39.3 (37.0-47.0) % Coagulation 09/23/24 Range/Units 13:47 INR 1.1 All other labs normal.
--- NOTE | 2024-09-24 13:55 | PCPTNOTE ---
Pt to have ortho surgery tomorrow. Will see pt once medical stable. Will follow.
--- NOTE | 2024-09-24 14:43 | P.PNIM_ITS ---
Progress Note: A&P Assessment and Plan (1) Olecranon fracture: Code(s): S52.023A - Displaced fracture of olecranon process without intraarticular extension of unspecified ulna, initial encounter for closed fracture Status: Acute Assessment and Plan: right after a trip and fall Cardiology cleared for surgery, but recommended 2 days of washout Eliquis, thus patient will be ready for OR tomorrow NPO from midnight Nonweightbearing right upper extremity and sling PRN Pain control Ortho following For OR tomorrow (2) Leukocytosis: Code(s): D72.829 - Elevated white blood cell count, unspecified Status: Acute Assessment and Plan: urine culture negative, thus UTI ruled out chest x-ray no acute process no signs of soft tissue infection no antibiotics (3) Osteoporosis: Code(s): M81.0 - Age-related osteoporosis without current pathological fracture Status: Acute Assessment and Plan: restart calcium and vitamin-D (4) PAF (paroxysmal atrial fibrillation): Code(s): I48.0 - Paroxysmal atrial fibrillation Status: Acute Assessment and Plan: Eliquis on hold cardiology consulted for surgical clearance per cardiology Low cardiac risk. May proceed to noncardiac surgery without further cardiac workup. Advise to hold Eliquis for at least 2 days which would be Monday. restart amiodarone (5) HTN, goal below 140/80: Code(s): I10 - Essential (primary) hypertension Status: Acute Assessment and Plan: restarted on Cozaar and hydrochlorothiazide Plan DVT prophylaxis on SCDs, no AC for now as patient is on Eliquis washout Subjective Date/time seen: 09/24/24 14:43 Interval history: Patient comfortable at bedside, and awaiting for ORIF tomorrow Continue PRN pain control Review of Systems Constitutional: Constitutional: Reports no additional constitutional complaints Eyes: Eyes: Reports no additional eye complaints ENT: Reports as per HPI Cardiovascular: Cardiovascular: Reports no additional cardiovascular complaints Respiratory: Respiratory: Reports no additional respiratory complaints Gastrointestinal: Gastrointestinal: Reports no additional gastrointestinal complaints Genitourinary: Genitourinary: Reports no additional female genitourinary complaints Neurologic: Reports as per HPI Psychiatric: Psychiatric: Reports no additional psychiatric complaints Exam Narrative: General: well appearing, appears stated age. HEENT: normocephalic, atraumatic. Mucous membranes moist. EOMI, PERRLA, bilateral sclera anicteric, no conjunctival injection. Neck supple without JVD, lymphadenopathy, or bruit. Respiratory: clear to ascultation bilaterally. No rales/rhonic/wheezes. Cardiovascular: Regular rate and rhythm, normal S1-S2 upon ascultation. No murmurs, rubs, or clicks. PMI is nondisplaced, capillary refill less than 3 second. Abdomen: Soft, round, no pulsatile masses, nondistended and nontender. No rebound, no guarding. No CVA tenderness, no hepatosplenomegaly. Bowel sounds present to all four quadrants. No high pitch or tinkling sounds, resonant to percussion. Extremities: No cyanosis, clubbing, or edema present. Pulses are palpable 2/2. right upper extremity in splint and sling Neuro: Alert and orientated x 4. PERRLA. Cranial nerves 2-12 intact without focal deficit. Skin: Warm, dry, and intact, without rash, erythema, or lesion. Psych: pleasant, cooperative, normal speech, normal affect, no hallucinations, no dysarthia Const: General: comfortable and no acute distress HENMT: Face/Nose/Sinus: Normal nares present Mouth: Yes moist mucous membranes Eyes: General: appearance normal, both eyes and all related structures Objective Data Vital Signs Vital Signs: Vital Signs - 24 hr 09/23/24 16:14 09/23/24 20:00 09/24/24 00:00 Temperature 97.6 F 97.8 F 98.2 F Pulse Rate 73 67 66 Respiratory Rate 12 18 16 Blood Pressure 130/73 141/62 H 121/62 Pulse Oximetry 98 99 98 Oxygen Delivery 09/23/24 20:00 09/24/24 03:51 09/24/24 08:37 Temperature 97.8 F Pulse Rate 69 69 Respiratory Rate 17 Blood Pressure 157/81 H Pulse Oximetry 98 Oxygen Delivery Room Air 09/24/24 08:00 09/24/24 08:00 09/24/24 12:00 Temperature 97.9 F 98.1 F Pulse Rate 80 78 Respiratory Rate 18 18 Blood Pressure 132/60 113/68 Pulse Oximetry 97 97 Oxygen Delivery Room Air Intake/Output Intake/Output: Intake & Output 09/21/24 09/22/24 09/23/24 09/24/24 23:59 23:59 23:59 23:59 Intake Total 480 680 Output Total 900 Balance 480 -220 Meds/Results Medications: Active Medications Generic Name Dose Route Start Last Admin Trade Name Freq PRN Reason Stop Dose Admin Acetaminophen 650 mg 09/23/24 17:30 Acetaminophen 325 Mg Tablet PO Q4H PRN Mild Pain (1-3) or Fever Acetaminophen 650 mg 09/23/24 17:34 09/24/24 13:25 Acetaminophen 325 Mg Tablet PO 650 mg Q4HR LETTY Administration Hydrocodone Bitart/Acetaminophen 1 tab 09/23/24 14:48 Hydrocodone/Acetaminophen (*Crx) 5-325 Mg Tablet PO Q4H PRN Pain Rated 4-6 Amiodarone HCl 100 mg 09/24/24 09:00 09/24/24 08:37 Amiodarone Hcl 100 Mg Tablet BY MOUTH 100 mg DAILY [facility] Administration Calcium Carbonate 500 mg 09/24/24 09:00 09/24/24 08:46 Calcium Carbonate (Tums) 500 Mg (200 Mg Elemental) PO Not Given BID [facility] Docusate Sodium 100 mg 09/24/24 09:00 09/24/24 08:47 Docusate Sodium 100 Mg Capsule PO Not Given BID [facility] Duloxetine HCl 20 mg 09/24/24 09:00 09/24/24 08:36 Duloxetine Hcl 20 Mg Capsule.Dr BY MOUTH 20 mg BID [facility] Administration Famotidine 40 mg 09/24/24 09:00 09/24/24 08:36 Famotidine 20 Mg Tablet PO 40 mg DAILY [facility] Administration Ferrous Sulfate 325 mg 09/24/24 09:00 09/24/24 08:37 Ferrous Sulfate [address] BY MOUTH 325 mg DAILY [facility] Administration Hydrochlorothiazide 25 mg 09/24/24 09:00 09/24/24 08:36 Hydrochlorothiazide 25 Mg Tablet PO 25 mg QAM [facility] Administration Cefazolin Sodium 2 gm in 50 mls @ 100 mls/hr 09/25/24 14:00 Ancef 2 Gm/D5w 50 Ml IVPB 09/25/24 14:29 ONCE ONE Vancomycin HCl 1,000 mg in 250 mls @ 250 mls/hr 09/25/24 13:00 Vancomycin 1,000 Mg/Ns 250 Ml IVPB 09/25/24 13:59 ONCE ONE Losartan Potassium 100 mg 09/24/24 09:00 09/24/24 08:36 Losartan Potassium 100 Mg Tablet PO 100 mg DAILY [facility] Administration Morphine Sulfate 2 mg 09/23/24 14:48 Morphine Sulfate (*Crx) 2 Mg/Ml Inj IV PUSH Q2H PRN Pain Rated 7-10 Ondansetron HCl 4 mg 09/23/24 14:48 Ondansetron Inj 4 Mg/2 Ml Vial IV PUSH Q4H PRN Nausea Pantoprazole Sodium 40 mg 09/24/24 09:00 09/24/24 08:36 Pantoprazole 40 Mg Tablet PO 40 mg BID [facility] Administration Pravastatin Sodium 20 mg 09/24/24 09:00 09/24/24 08:36 Pravastatin Sodium 20 Mg Tablet BY MOUTH 20 mg DAILY [facility] Administration Vitamin D 1,000 units 09/24/24 09:00 09/24/24 08:36 Cholecalciferol 1,000 Units Tablet PO 1,000 units DAILY [facility] Administration Radiology Results: ITS Impressions Elbow X-Ray 09/23/24 13:21 IMPRESSION: 1. Transverse fracture of olecranon of proximal ulna. ADDENDUM: 09/24/24 1151 The second sentence of the findings section should read, The distal fracture fragment demonstrates 2.7 cm distraction and rotation. Chest X-Ray 09/24/24 07:13 Impression: No acute abnormality. Elbow CT 09/24/24 14:30 IMPRESSION: 1. Comminuted fracture of olecranon of proximal ulna. Labs Labs: Laboratory Results - last 24 hr 09/23/24 09/24/24 09/24/24 13:47 00:06 06:27 WBC RBC Hgb Hct MCV MCH MCHC RDW Plt Count MPV Immature Gran % (Auto) Neut % (Auto) Lymph % (Auto) [place] % (Auto) Eos % (Auto) Baso % (Auto) Lymph # (Auto) [place] # (Auto) Eos # (Auto) Baso # (Auto) Abs Immat Gran (auto) Absolute Neuts (auto) Absolute Nucleated RBC Nucleated RBC % Sodium Potassium Chloride Carbon Dioxide Anion Gap BUN Creatinine Estim Creat Clear Calc Estimated GFR Glucose POC Capillary Glucose 131 H Calcium Urine Color Yellow Urine Appearance Clear Urine pH 7.0 Ur Specific [place] 1.016 Urine Protein Negative Urine Glucose (UA) Negative Urine Ketones Negative Ur Blood (Man) Negative Urine Nitrate Negative Urine Bilirubin Negative Urine Urobilinogen 1.0 Ur Leukocyte Esterase 2+ H Urine RBC 0-2 Urine WBC 21-50 H Ur Squamous Epith Cells None seen Urine Bacteria None seen Urine Casts 0-2 Blood Type O Positive Antibody Screen Negative 09/24/24 07:20 WBC 7.2 RBC 4.16 L Hgb 13.4 Hct 39.3 MCV 94.5 MCH 32.2 MCHC 34.1 RDW 14.0 Plt Count 232 MPV 10.5 H Immature Gran % (Auto) 0.3 Neut % (Auto) 63.6 Lymph % (Auto) 26.3 [place] % (Auto) 8.2 Eos % (Auto) 1.0 Baso % (Auto) 0.6 Lymph # (Auto) 1.89 [place] # (Auto) 0.6 Eos # (Auto) 0.1 Baso # (Auto) 0.0 Abs Immat Gran (auto) 0.02 Absolute Neuts (auto) 4.6 Absolute Nucleated RBC 0.000 Nucleated RBC % 0.0 Sodium 139 Potassium 3.4 Chloride 103 Carbon Dioxide 25 Anion Gap 11 BUN 16 Creatinine 0.80 Estim Creat Clear Calc 48 Estimated GFR > 60 Glucose 131 H POC Capillary Glucose Calcium 8.9 Urine Color Urine Appearance Urine pH Ur Specific [place] Urine Protein Urine Glucose (UA) Urine Ketones Ur Blood (Man) Urine Nitrate Urine Bilirubin Urine Urobilinogen Ur Leukocyte Esterase Urine RBC Urine WBC Ur Squamous Epith Cells Urine Bacteria Urine Casts Blood Type Antibody Screen Quality VTE Prophylaxis VTE prophylaxis: mechanical ordered and pharmacologic ordered
[2024-09-25] VITALS (14 sets, daily range): BP systolic 132–169; BP diastolic 60–99; PULSE 64–80; RESP 15–20; TEMP 36.2–36.9; O2SAT 92–100
[2024-09-25] MEDS: ACETAMINOPHEN 325 MG TABLET 650 MG PO ×4 (05:34→18:48)
[2024-09-25 07:04] LABS: Basophils Absolute Auto 0.1 K/mm3 (0.0-0.1); Basophils Percent Auto 0.8 % (0.2-1.2); Eosinophils Absolute Auto 0.1 K/mm3 (0-0.3); Eosinophils Percent Auto 1.7 % (0-4.4); Hematocrit 39.1 % (37.0-47.0); Hemoglobin 13.3 g/dL (12.0-15.0); Immature Granulocyte Absolute 0.02 K/mm3 (0.00-0.031); Immature Granulocyte Percent A 0.3 % (0-0.5); Lymphocytes Absolute Auto 2.43 K/mm3 (0.9-3.2); Mean Corpuscular Volume 94.2 fl (80-100); Mean Platelet Volume 10.1 fl (7.4-10.4); Monocytes Absolute Auto 0.7 K/mm3 (0.1-0.6); Monocytes Percent Auto 10.3 % (2.6-8.5); Neutrophils Absolute Auto 3.1 K/mm3 (1.3-6.7); Neutrophils Percent Auto 48.9 % (45.5-73.1); Platelet Count Result 217 k/mm3 (150-375); Red Blood Count 4.15 M/mm3 (4.2-5.4); Red Cell Distribution Width 14.1 % (11.5-14.5); White Blood Count 6.4 K/mm3 (4.5-10.0)
[2024-09-25 07:16] LABS: Alanine Aminotransferase 26 U/L (6-35); Albumin Level 3.8 g/dL (3.5-5.1); Alkaline Phosphatase 85 U/L (38-126); Anion Gap 7 mmol/L (4-12); Aspartate Amino Transferase 34 U/L (14-36); Bilirubin,Total 0.5 mg/dL (0.2-1.3); Blood Urea Nitrogen 16 mg/dL (7-17); Calcium 8.9 mg/dL (8.4-10.2); Carbon Dioxide 28 mmol/L (22-30); Chloride 103 mmol/L (98-107); Estimated CRCL calculation 43 ml/min; Estimated Glomerular Filt Rate 60; Glucose 105 mg/dL (65-110); Potassium 3.7 mmol/L (3.4-5.0); Sodium 138 mmol/L (137-145)
--- NOTE | 2024-09-25 07:44 | PM.PNCARD ---
Progress Note: A&P Assessment and Plan (1) Preop cardiovascular exam: Code(s): Z01.810 - Encounter for preprocedural cardiovascular examination Status: Acute Assessment and Plan: Low cardiac risk. May proceed to noncardiac surgery without further cardiac workup. Advise to hold Eliquis for at least 2 days which would be Monday. Will sign off, please call with any questions. (2) PAF (paroxysmal atrial fibrillation): Code(s): I48.0 - Paroxysmal atrial fibrillation Status: Acute Assessment and Plan: In Sinus rhythm. On Amiodarone. Normally on Eliquis but currently on hold for surgery. Resume Eliquis the following day after surgery if OK with surgeon. (3) HTN, goal below 140/80: Code(s): I10 - Essential (primary) hypertension Status: Acute Assessment and Plan: Stable. (4) HLD (hyperlipidemia): Code(s): E78.5 - Hyperlipidemia, unspecified Status: Acute Assessment and Plan: On Pravastatin. Subjective Date/time seen: 09/25/24 07:44 Interval history: Denies chest pain or sob. Exam Const: General: cooperative, healthy appearing and comfortable Orientation/consciousness: oriented to person, oriented to place and oriented to time Resp: Auscultation: clear to auscultation bilaterally, no crackles, no rales, no rhonchi and no wheezes Cardio: Rate: regular rate Rhythm: regular rhythm Heart sounds: no murmurs Peripheral pulses: dorsalis pedis present Neuro: General: oriented to person, oriented to place and oriented to time Extrem: Right lower extremity: no edema Left lower extremity: no edema Objective Data Vital Signs Vital Signs: Vital Signs - 24 hr 09/24/24 08:37 09/24/24 08:00 09/24/24 08:00 Temperature 97.9 F Pulse Rate 69 80 Respiratory Rate 18 Blood Pressure 132/60 Pulse Oximetry 97 Oxygen Delivery Room Air 09/24/24 12:00 09/24/24 15:31 09/24/24 20:00 Temperature 98.1 F 98.9 F 98.3 F Pulse Rate 78 72 78 Respiratory Rate 18 18 17 Blood Pressure 113/68 121/68 117/51 L Pulse Oximetry 97 96 97 Oxygen Delivery 09/24/24 20:00 09/24/24 23:39 09/25/24 04:00 Temperature 98.2 F 98.2 F Pulse Rate 73 73 Respiratory Rate 16 16 Blood Pressure 126/62 136/65 Pulse Oximetry 99 98 Oxygen Delivery Room Air Intake/Output Intake/Output: Intake & Output 09/22/24 09/23/24 09/24/24 09/25/24 23:59 23:59 23:59 23:59 Intake Total 480 2770 100 Output Total 1350 600 Balance 480 1420 -500 Meds/Results Medications: Active Medications Generic Name Dose Route Start Last Admin Trade Name Freq PRN Reason Stop Dose Admin Acetaminophen 650 mg 09/23/24 17:30 Acetaminophen 325 Mg Tablet PO Q4H PRN Mild Pain (1-3) or Fever Acetaminophen 650 mg 09/23/24 17:34 09/25/24 05:34 Acetaminophen 325 Mg Tablet PO 650 mg Q4HR LETTY Administration Hydrocodone Bitart/Acetaminophen 1 tab 09/23/24 14:48 Hydrocodone/Acetaminophen (*Crx) 5-325 Mg Tablet PO Q4H PRN Pain Rated 4-6 Amiodarone HCl 100 mg 09/24/24 09:00 09/24/24 08:37 Amiodarone Hcl 100 Mg Tablet BY MOUTH 100 mg DAILY [facility] Administration Calcium Carbonate 500 mg 09/24/24 09:00 09/24/24 17:28 Calcium Carbonate (Tums) 500 Mg (200 Mg Elemental) PO Not Given BID [facility] Docusate Sodium 100 mg 09/24/24 09:00 09/24/24 17:28 Docusate Sodium 100 Mg Capsule PO Not Given BID [facility] Duloxetine HCl 20 mg 09/24/24 09:00 09/24/24 17:28 Duloxetine Hcl 20 Mg Capsule.Dr BY MOUTH 20 mg BID [facility] Administration Famotidine 40 mg 09/24/24 09:00 09/24/24 08:36 Famotidine 20 Mg Tablet PO 40 mg DAILY [facility] Administration Ferrous Sulfate 325 mg 09/24/24 09:00 09/24/24 08:37 Ferrous Sulfate [address] BY MOUTH 325 mg DAILY [facility] Administration Hydrochlorothiazide 25 mg 09/24/24 09:00 09/24/24 08:36 Hydrochlorothiazide 25 Mg Tablet PO 25 mg QAM [facility] Administration Cefazolin Sodium 2 gm in 50 mls @ 100 mls/hr 09/25/24 14:00 Ancef 2 Gm/D5w 50 Ml IVPB 10/30/24 14:29 ONCE ONE Vancomycin HCl 1,000 mg in 250 mls @ 250 mls/hr 09/25/24 13:00 Vancomycin 1,000 Mg/Ns 250 Ml IVPB 09/25/24 13:59 ONCE ONE Losartan Potassium 100 mg 09/24/24 09:00 09/24/24 08:36 Losartan Potassium 100 Mg Tablet PO 100 mg DAILY [facility] Administration Morphine Sulfate 2 mg 09/23/24 14:48 Morphine Sulfate (*Crx) 2 Mg/Ml Inj IV PUSH Q2H PRN Pain Rated 7-10 Ondansetron HCl 4 mg 09/23/24 14:48 Ondansetron Inj 4 Mg/2 Ml Vial IV PUSH Q4H PRN Nausea Pantoprazole Sodium 40 mg 09/24/24 09:00 09/24/24 17:28 Pantoprazole 40 Mg Tablet PO Not Given BID [facility] Pravastatin Sodium 20 mg 09/24/24 09:00 09/24/24 08:36 Pravastatin Sodium 20 Mg Tablet BY MOUTH 20 mg DAILY [facility] Administration Vitamin D 1,000 units 09/24/24 09:00 09/24/24 08:36 Cholecalciferol 1,000 Units Tablet PO 1,000 units DAILY LETTY Administration Radiology Results: ITS Impressions Elbow X-Ray 09/23/24 13:21 IMPRESSION: 1. Transverse fracture of olecranon of proximal ulna. ADDENDUM: 09/24/24 1151 The second sentence of the findings section should read, The distal fracture fragment demonstrates 2.7 cm distraction and rotation. Chest X-Ray 09/24/24 07:13 Impression: No acute abnormality. Elbow CT 09/24/24 14:30 IMPRESSION: 1. Comminuted fracture of olecranon of proximal ulna. Labs Labs: Laboratory Results - last 24 hr 09/24/24 09/25/24 07:20 06:56 WBC 7.2 6.4 RBC 4.16 L 4.15 L Hgb 13.4 13.3 Hct 39.3 39.1 MCV 94.5 94.2 MCH 32.2 32.0 MCHC 34.1 34.0 RDW 14.0 14.1 Plt Count 232 217 MPV 10.5 H 10.1 Immature Gran % (Auto) 0.3 0.3 Neut % (Auto) 63.6 48.9 Lymph % (Auto) 26.3 38.0 [place] % (Auto) 8.2 10.3 H Eos % (Auto) 1.0 1.7 Baso % (Auto) 0.6 0.8 Lymph # (Auto) 1.89 2.43 [place] # (Auto) 0.6 0.7 H Eos # (Auto) 0.1 0.1 Baso # (Auto) 0.0 0.1 Abs Immat Gran (auto) 0.02 0.02 Absolute Neuts (auto) 4.6 3.1 Absolute Nucleated RBC 0.000 0.000 Nucleated RBC % 0.0 0.0 Sodium 139 138 Potassium 3.4 3.7 Chloride 103 103 Carbon Dioxide 25 28 Anion Gap 11 7 BUN 16 16 Creatinine 0.80 0.90 Estim Creat Clear Calc 48 43 Estimated GFR > 60 60 Glucose 131 H 105 Calcium 8.9 8.9 Magnesium 2.0 Total Bilirubin 0.5 AST 34 ALT 26 Alkaline Phosphatase 85 Total Protein 7.0 Albumin 3.8
--- NOTE | 2024-09-25 08:57 | PCPTNOTE ---
Pt to have ortho surgery today. Will continue to follow.
[2024-09-25] MEDS: DULoxetine HCL 20 MG CAPSULE.DR BY MOUTH (09:15)
[2024-09-25] MEDS: AMIODARONE HCL 100 MG TABLET BY MOUTH (09:15)
[2024-09-25] MEDS: VANCOMYCIN 1,000 MG/NS 250 ML BAG 150 MG IVPB (13:06)
--- NOTE | 2024-09-25 13:40 | P.PNIM_ITS ---
Progress Note: A&P Assessment and Plan (1) Olecranon fracture: Code(s): S52.023A - Displaced fracture of olecranon process without intraarticular extension of unspecified ulna, initial encounter for closed fracture Status: Acute Assessment and Plan: right after a trip and fall Cardiology cleared for surgery, but recommended 2 days of washout Eliquis, thus patient will be ready for OR tomorrow NPO from midnight Nonweightbearing right upper extremity and sling PRN Pain control Ortho following For OR today PT/OT (2) Leukocytosis: Code(s): D72.829 - Elevated white blood cell count, unspecified Status: Acute Assessment and Plan: urine culture negative, thus UTI ruled out chest x-ray no acute process no signs of soft tissue infection resolved no antibiotics (3) Osteoporosis: Code(s): M81.0 - Age-related osteoporosis without current pathological fracture Status: Acute Assessment and Plan: restart calcium and vitamin-D (4) PAF (paroxysmal atrial fibrillation): Code(s): I48.0 - Paroxysmal atrial fibrillation Status: Acute Assessment and Plan: Eliquis on hold cardiology consulted for surgical clearance per cardiology Low cardiac risk. May proceed to noncardiac surgery without further cardiac workup. Advise to hold Eliquis for at least 2 days which would be Monday. restart amiodarone (5) HTN, goal below 140/80: Code(s): I10 - Essential (primary) hypertension Status: Acute Assessment and Plan: restarted on Cozaar and hydrochlorothiazide Plan DVT prophylaxis on SCDs, no AC for now as patient is on Eliquis washout Subjective Date/time seen: 09/25/24 13:40 Interval history: Comfortable at bedside and awaiting OR today Review of Systems Constitutional: Constitutional: Reports no additional constitutional complaints Eyes: Eyes: Reports no additional eye complaints ENT: Reports as per HPI Cardiovascular: Cardiovascular: Reports no additional cardiovascular complaints Respiratory: Respiratory: Reports no additional respiratory complaints Gastrointestinal: Gastrointestinal: Reports no additional gastrointestinal complaints Genitourinary: Genitourinary: Reports no additional female genitourinary complaints Neurologic: Reports as per HPI Psychiatric: Psychiatric: Reports no additional psychiatric complaints Exam Narrative: General: well appearing, appears stated age. HEENT: normocephalic, atraumatic. Mucous membranes moist. EOMI, PERRLA, bilateral sclera anicteric, no conjunctival injection. Neck supple without JVD, lymphadenopathy, or bruit. Respiratory: clear to ascultation bilaterally. No rales/rhonic/wheezes. Cardiovascular: Regular rate and rhythm, normal S1-S2 upon ascultation. No murmurs, rubs, or clicks. PMI is nondisplaced, capillary refill less than 3 second. Abdomen: Soft, round, no pulsatile masses, nondistended and nontender. No rebound, no guarding. No CVA tenderness, no hepatosplenomegaly. Bowel sounds present to all four quadrants. No high pitch or tinkling sounds, resonant to percussion. Extremities: No cyanosis, clubbing, or edema present. Pulses are palpable 2/2. right upper extremity in splint and sling Neuro: Alert and orientated x 4. PERRLA. Cranial nerves 2-12 intact without focal deficit. Skin: Warm, dry, and intact, without rash, erythema, or lesion. Psych: pleasant, cooperative, normal speech, normal affect, no hallucinations, no dysarthia Const: General: comfortable and no acute distress HENMT: Face/Nose/Sinus: Normal nares present Mouth: Yes moist mucous membranes Eyes: General: appearance normal, both eyes and all related structures Objective Data Vital Signs Vital Signs: Vital Signs - 24 hr 09/24/24 15:31 09/24/24 20:00 09/24/24 20:00 Temperature 98.9 F 98.3 F Pulse Rate 72 78 Respiratory Rate 18 17 Blood Pressure 121/68 117/51 L Pulse Oximetry 96 97 Oxygen Delivery Room Air 09/24/24 23:39 09/25/24 04:00 09/25/24 08:00 Temperature 98.2 F 98.2 F 97.3 F L Pulse Rate 73 73 68 Respiratory Rate 16 16 18 Blood Pressure 126/62 136/65 143/66 H Pulse Oximetry 99 98 99 Oxygen Delivery 09/25/24 09:15 09/25/24 09:43 09/25/24 08:00 Temperature Pulse Rate 75 Respiratory Rate Blood Pressure Pulse Oximetry 97 Oxygen Delivery Room Air Room Air 09/25/24 12:00 Temperature 97.7 F Pulse Rate 64 Respiratory Rate 18 Blood Pressure 140/60 Pulse Oximetry 94 Oxygen Delivery Intake/Output Intake/Output: Intake & Output 09/22/24 09/23/24 09/24/24 09/25/24 23:59 23:59 23:59 23:59 Intake Total 480 2770 100 Output Total 1350 600 Balance 480 1420 -500 Meds/Results Medications: Active Medications Generic Name Dose Route Start Last Admin Trade Name Freq PRN Reason Stop Dose Admin Acetaminophen 650 mg 09/23/24 17:30 Acetaminophen 325 Mg Tablet PO Q4H PRN Mild Pain (1-3) or Fever Acetaminophen 650 mg 09/23/24 17:34 09/25/24 13:05 Acetaminophen 325 Mg Tablet PO 650 mg Q4HR LETTY Administration Hydrocodone Bitart/Acetaminophen 1 tab 09/23/24 14:48 Hydrocodone/Acetaminophen (*Crx) 5-325 Mg Tablet PO Q4H PRN Pain Rated 4-6 Amiodarone HCl 100 mg 09/24/24 09:00 09/25/24 09:15 Amiodarone Hcl 100 Mg Tablet BY MOUTH 100 mg DAILY [facility] Administration Calcium Carbonate 500 mg 09/24/24 09:00 09/25/24 08:34 Calcium Carbonate (Tums) 500 Mg (200 Mg Elemental) PO Not Given BID [facility] Docusate Sodium 100 mg 09/24/24 09:00 09/25/24 08:35 Docusate Sodium 100 Mg Capsule PO Not Given BID [facility] Duloxetine HCl 20 mg 09/24/24 09:00 09/25/24 09:15 Duloxetine Hcl 20 Mg Capsule.Dr BY MOUTH 20 mg BID [facility] Administration Famotidine 40 mg 09/24/24 09:00 09/25/24 08:35 Famotidine 20 Mg Tablet PO Not Given DAILY [facility] Ferrous Sulfate 325 mg 09/24/24 09:00 09/25/24 08:35 Ferrous Sulfate [address] BY MOUTH Not Given DAILY [facility] Hydrochlorothiazide 25 mg 09/24/24 09:00 09/25/24 09:21 Hydrochlorothiazide 25 Mg Tablet PO Not Given QAM [facility] Cefazolin Sodium 2 gm in 50 mls @ 100 mls/hr 09/25/24 14:00 Ancef 2 Gm/D5w 50 Ml IVPB 09/25/24 14:29 ONCE ONE Vancomycin HCl 1,000 mg in 250 mls @ 250 mls/hr 09/25/24 13:00 09/25/24 13:06 Vancomycin 1,000 Mg/Ns 250 Ml IVPB 09/25/24 13:59 150 mls/hr ONCE ONE Administration Losartan Potassium 100 mg 09/24/24 09:00 09/25/24 09:21 Losartan Potassium 100 Mg Tablet PO Not Given DAILY [facility] Morphine Sulfate 2 mg 09/23/24 14:48 Morphine Sulfate (*Crx) 2 Mg/Ml Inj IV PUSH Q2H PRN Pain Rated 7-10 Ondansetron HCl 4 mg 09/23/24 14:48 Ondansetron Inj 4 Mg/2 Ml Vial IV PUSH Q4H PRN Nausea Pantoprazole Sodium 40 mg 09/24/24 09:00 09/25/24 08:35 Pantoprazole 40 Mg Tablet PO Not Given BID [facility] Pravastatin Sodium 20 mg 09/24/24 09:00 09/25/24 09:20 Pravastatin Sodium 20 Mg Tablet BY MOUTH Not Given DAILY [facility] Vitamin D 1,000 units 09/24/24 09:00 09/25/24 08:35 Cholecalciferol 1,000 Units Tablet PO Not Given DAILY [facility] Radiology Results: ITS Impressions Elbow X-Ray 09/23/24 13:21 IMPRESSION: 1. Transverse fracture of olecranon of proximal ulna. ADDENDUM: 09/24/24 1151 The second sentence of the findings section should read, The distal fracture fragment demonstrates 2.7 cm distraction and rotation. Chest X-Ray 09/24/24 07:13 Impression: No acute abnormality. Elbow CT 09/24/24 14:30 IMPRESSION: 1. Comminuted fracture of olecranon of proximal ulna. Labs Labs: Laboratory Results - last 24 hr 09/25/24 06:56 WBC 6.4 RBC 4.15 L Hgb 13.3 Hct 39.1 MCV 94.2 MCH 32.0 MCHC 34.0 RDW 14.1 Plt Count 217 MPV 10.1 Immature Gran % (Auto) 0.3 Neut % (Auto) 48.9 Lymph % (Auto) 38.0 [place] % (Auto) 10.3 H Eos % (Auto) 1.7 Baso % (Auto) 0.8 Lymph # (Auto) 2.43 [place] # (Auto) 0.7 H Eos # (Auto) 0.1 Baso # (Auto) 0.1 Abs Immat Gran (auto) 0.02 Absolute Neuts (auto) 3.1 Absolute Nucleated RBC 0.000 Nucleated RBC % 0.0 Sodium 138 Potassium 3.7 Chloride 103 Carbon Dioxide 28 Anion Gap 7 BUN 16 Creatinine 0.90 Estim Creat Clear Calc 43 Estimated GFR 60 Glucose 105 Calcium 8.9 Magnesium 2.0 Total Bilirubin 0.5 AST 34 ALT 26 Alkaline Phosphatase 85 Total Protein 7.0 Albumin 3.8 Quality VTE Prophylaxis VTE prophylaxis: mechanical ordered and pharmacologic ordered
[2024-09-25] MEDS: LACTATED RINGERS 1,000 ML 30 ML IV CONT ×2 (13:45→17:32)
--- NOTE | 2024-09-25 14:51 | WPDANESEPPF ---
Anes - Initial Pre Proc Eval Procedure: Operation Date: 09/25/24 15:00 Proposed Procedures p Open Reduction Internal Fixation Right Olecranon Fracture - Scottie Ascencio MD Date/Time: 09/25/24 14:51 Surgeon: Mayra Moreau MD Pre Op Diagnosis: olecranon fracture Patient Data Age: 78 Gender: F Height: 1.63 m Weight: 71.9 kg Last Vital Signs Temp 36.5 C 09/25/24 12:00 Pulse 64 09/25/24 12:00 Resp 18 09/25/24 12:00 BP 140/60 09/25/24 12:00 Pulse Ox 94 09/25/24 12:00 O2 Del Method Room Air 09/25/24 09:43 Allergies Allergy/AdvReac Type Severity Reaction Status Date / Time No Known Allergies Allergy Verified 09/25/24 14:17 Home Medications Medication Instructions Recorded Confirmed Type calcium carbonate (Calcium 500) 500 mg PO BID 02/08/23 09/23/24 History cholecalciferol (vitamin D3) 25 25 mcg PO DAILY 02/08/23 09/23/24 History mcg (1,000 unit) capsule ferrous sulfate 325 mg (65 mg 325 mg PO DAILY 02/08/23 09/23/24 History iron) tablet magnesium 250 mg tablet 250 mg PO DAILY 02/08/23 09/23/24 History mecobalamin (vitamin B12) 500 mcg 500 mcg PO DAILY 02/08/23 09/23/24 History chewable tablet multivitamin 1 tablet PO DAILY 02/08/23 09/23/24 History omega-3 fatty acids-fish oil 360 1 cap PO BID 02/08/23 09/23/24 History mg-1,200 mg capsule (Fish Oil) famotidine 40 mg tablet (Pepcid) 40 mg PO DAILY #10 tabs 07/07/23 09/23/24 Rx omeprazole 40 mg capsule,delayed 40 mg PO DAILY #90 caps 02/21/24 09/23/24 Rx release amiodarone 200 mg tablet See Rx Instructions .Route 05/20/24 09/23/24 Rx .COMPLEX #45 tabs losartan 100 See Rx Instructions .Route 08/12/24 09/23/24 Rx mg-hydrochlorothiazide 25 mg tablet .COMPLEX #90 tabs pravastatin 40 mg tablet See Rx Instructions .Route 08/12/24 09/23/24 Rx .COMPLEX #90 tabs duloxetine 20 mg capsule,delayed See Rx Instructions .Route 09/16/24 09/23/24 Rx release .COMPLEX #180 caps apixaban 5 mg tablet (Eliquis) See Rx Instructions .Route 09/23/24 09/23/24 History .COMPLEX afib Laboratory Tests 09/25/24 06:56 WBC 6.4 K/mm3 (4.5-10.0) RBC 4.15 L M/mm3 (4.2-5.4) Hgb 13.3 g/dL (12.0-15.0) Hct 39.1 % (37.0-47.0) MCV 94.2 fl (80-100) MCH 32.0 pg (26-34) MCHC 34.0 g/dl (32-36) RDW 14.1 % (11.5-14.5) Plt Count 217 k/mm3 (150-375) MPV 10.1 fl (7.4-10.4) Immature Gran % (Auto) 0.3 % (0-0.5) Neut % (Auto) 48.9 % (45.5-73.1) Lymph % (Auto) 38.0 % (18.3-44.2) [place] % (Auto) 10.3 H % (2.6-8.5) Eos % (Auto) 1.7 % (0-4.4) Baso % (Auto) 0.8 % (0.2-1.2) Lymph # (Auto) 2.43 K/mm3 (0.9-3.2) [place] # (Auto) 0.7 H K/mm3 (0.1-0.6) Eos # (Auto) 0.1 K/mm3 (0-0.3) Baso # (Auto) 0.1 K/mm3 (0.0-0.1) Abs Immat Gran (auto) 0.02 K/mm3 (0.00-0.031) Absolute Neuts (auto) 3.1 K/mm3 (1.3-6.7) Absolute Nucleated RBC 0.000 K/mm3 (0.0-0.012) Nucleated RBC % 0.0 % (0.0-0.2) Sodium 138 mmol/L (137-145) Potassium 3.7 mmol/L (3.4-5.0) Chloride 103 mmol/L (98-107) Carbon Dioxide 28 mmol/L (22-30) Anion Gap 7 mmol/L (4-12) BUN 16 mg/dL (7-17) Creatinine 0.90 mg/dL (0.7-1.0) Estim Creat Clear Calc 43 ml/min Estimated GFR 60 (59 - ) Glucose 105 mg/dL (65-110) Calcium 8.9 mg/dL (8.4-10.2) Magnesium 2.0 mg/dL (1.6-2.3) Total Bilirubin 0.5 mg/dL (0.2-1.3) AST 34 U/L (14-36) ALT 26 U/L (6-35) Alkaline Phosphatase 85 U/L (38-126) Total Protein 7.0 g/dL (6.3-8.2) Albumin 3.8 g/dL (3.5-5.1) Patient hx anesthesia problems: none Family hx anesthesia problems: none Results Review: All pre-operative results and documents have been reviewed as part of the pre-operative evaluation. FORMERLY [facility] Past Medical History Medical History Brain tumor COVID-19 Gastroesophageal reflux disease without esophagitis History of kidney stones HLD (hyperlipidemia) HTN, goal below 140/80 Mitral valve prolapse Neuropathy Osteoporosis PAF (paroxysmal atrial fibrillation) Surgical History Surgical History History of cholecystectomy History of craniotomy History of hysterectomy Family History Family History Father Family history of multiple sclerosis Patient's father is Mother Hypertension Cerebrovascular accident Family history of transient ischemic attacks Family history of congestive heart failure Patient's mother is Sibling Hypertension Family history of elevated blood lipids Family history of coronary artery disease Patient's sister is in good health Patient's brother is in good health Social History Social History Smoking packs per day: 0.5 Smoking cigarettes per day: 10.0 Years smoked: 10 Smoking pack-years: 5.00 Smoking status: Former smoker Tobacco type: cigarettes Second hand tobacco smoke exposure: No Smoking end date: 11/27/1962 Alcohol intake: never Substance use: never Substance use type: does not use Do You Feel Safe in your Home?: Yes Lack of Transportation: No Lack of Food: Never True Current Housing: I Have Housing Concerned About Future Housing: No Difficulty Paying Gas/Electric Bills: No Difficulty Paying for Meds: No Currently Unemployed: No Education: Trade/Vocational Certificate Difficulty w/ Childcare or Family Care: No Living arrangements: with family Spiritual care concerns: No Anes - Eval Final PreProcedure Day of Procedure 09/25/24 14:51 Patient weight: overweight Heart: regular rate and rhythm Lungs: clear to auscultation Airway: Mallampati scale class II Neurological: alert and oriented Last oral intake: >/= 8 hours ASA classification: III Emergent: no Anesthetic plan: proceed Anesthesia type and monitoring: general LMA and standard monitoring Results Review: All pre-operative results and documents have been reviewed as part of the pre-operative evaluation. Informed Consent: The patient's anesthetic plan and its attendant risks and benefits were discussed with the patient/family/POA. Questions were solicited and answers provided to the satisfaction of the patient/family/POA.
--- NOTE | 2024-09-25 14:58 | WPDHPUPDATE1 ---
History and Physical Update Update Date/Time: 09/25/24 14:58 History and Physical has been reviewed, including an updated exam of the patient. There are NO changes in the patient's condition. Risks, benefits, and alternatives have been discussed and questions answered. Patient agrees to proceed with procedure.
[2024-09-25] MEDS: ceFAZolin 2 GM/D5W 50 ML 2 GM/50 ML BAG IVPB (15:17)
[2024-09-25] MEDS: ceFAZolin SODIUM 1 GM VIAL (17:19)
--- NOTE | 2024-09-25 17:41 | P.OP_ITS ---
Procedure Note - Detailed Date of Procedure 09/25/24 Pre-op Diagnosis Right olecranon fracture Post-op Diagnosis Same Procedure Performed Open reduction internal fixation. Right olecranon fracture with Acumed plate Surgeon Scottie Ascencio MD Anesthesia General Description of Procedure Patient was brought to the operating room general anesthesia was administered. The right elbow was gently wiped with the Charlie prep clot. She received 2 g of Ancef weight based vancomycin preoperatively. The arm was prepped with DuraPrep covered with Ioban in the usual fashion. Limb was exsanguinated tourniquet elevated to 225 mmHg. A the 5 in incision was made extending from 3 to 1/2 inches down the ulnar shaft on the posterior aspect of the proximal forearm skirting just radial to the olecranon process and curving back to the midline area in inch proximal to the olecranon process. The fracture was carefully evac uated of hematoma. There was minimal comminution laterally. The posterior surface on both the distal fragment in the olecranon fragment were intact allowing us to achieve an anatomic reduction. To size K-wire pins were introduced longitudinally in the canal for temporary stabilization. The Accu Med short plate was chosen. It was stabilized to the shaft with a olive wire another K-wire inserted into the home-run hole after pressing the plate firmly to the posterior surface of the triceps and the posterior surface of the proximal ulna. A cortical screw was placed in the distal portion of the oval hole which when tightened further compress the fracture site by pulling the plate distally. There to the small locking screws were placed in the proximal aspect of the olecranon. The other 2 screw holes had to be left open as these fractures were right over the fracture as with her small body size the size olecranon fragment was also similarly small. Locking screw was placed in the locking screw hole in the shaft. The home run guide pin was removed and this hole drilled for a 40 mm 3.0 locking screw and an additional locking screw placed in the distal-most hole. We used fluoroscopy during the procedure to confirm appropriate alignment and position of the hardware. We had used to 1.4 mm Arthrex suture tapes that we placed through the proximal small holes and at this time we used the sutures to make a banal construct suturing up the lateral aspect of the triceps tendon and down and this was tied the knot buried under the deep surface of the lateral portion of the bend in the plate and we did the same thing on the medial side securing the triceps to the plate this fashion. We had put the tourniquet down before initiating the triceps portion of the repair. The wound was again irrigated with antibiotic solution and skin closed with 3-0 subcutaneous Vicryl and glue in a soft bulky dressing applied the anterior splint was applied. She was transferred postop recovery room stable condition. No known complications. Urine Output 200 [facility] Billing Surgery - Charge Forward: Surgery Billing (Open reduction internal fixation right olecranon fracture)
[2024-09-25] MEDS: fentaNYL CITRATE INJ (*CRX) 100 MCG/2 ML VIAL 25 MCG IV PUSH ×4 (17:45→18:02)
[2024-09-25] MEDS: ONDANSETRON INJ 4 MG/2 ML VIAL IV PUSH (18:47)
[2024-09-25] MEDS: MORPHINE SULFATE (*CRX) 2 MG/ML INJ IV PUSH (18:48)
[2024-09-25] MEDS: DEXTROSE 5%/0.45% SOD CHL 1,000 ML 80 ML IV CONT (18:55)
[2024-09-25] MEDS: oxyCODONE HCL (*CRX) 2.5 MG TAB IR PO (22:30)
[2024-09-25] MEDS: ceFAZolin 1 GM/NS 50 ML 1 GM/50 ML BAG IVPB (22:30)
[2024-09-26] VITALS (7 sets, daily range): BP systolic 117–131; BP diastolic 57–64; PULSE 75–82; RESP 18; TEMP 36.6–36.9; O2SAT 94–97
[2024-09-26] MEDS: ACETAMINOPHEN 325 MG TABLET 650 MG PO ×3 (03:00→12:51)
[2024-09-26] MEDS: oxyCODONE HCL (*CRX) 2.5 MG TAB IR PO ×4 (03:00→14:35)
[2024-09-26] MEDS: ceFAZolin 1 GM/NS 50 ML 1 GM/50 ML BAG IVPB ×2 (06:16→14:35)
[2024-09-26 08:42] LABS: Basophils Percent Auto 0.3 % (0.2-1.2); Hematocrit 37.5 % (37.0-47.0); Hemoglobin 12.8 g/dL (12.0-15.0); Immature Granulocyte Absolute 0.04 K/mm3 (0.00-0.031); Immature Granulocyte Percent A 0.4 % (0-0.5); Lymphocytes Percent Auto 14.5 % (18.3-44.2); Mean Corpuscular HGB Conc 34.1 g/dl (32-36); Mean Corpuscular Hemoglobin 32.6 pg (26-34); Mean Corpuscular Volume 95.4 fl (80-100); Mean Platelet Volume 10.2 fl (7.4-10.4); Monocytes Absolute Auto 0.7 K/mm3 (0.1-0.6); Monocytes Percent Auto 6.9 % (2.6-8.5); Neutrophils Percent Auto 77.9 % (45.5-73.1); Platelet Count Result 235 k/mm3 (150-375); Red Blood Count 3.93 M/mm3 (4.2-5.4); Red Cell Distribution Width 13.7 % (11.5-14.5); White Blood Count 10.3 K/mm3 (4.5-10.0)
[2024-09-26] MEDS: CALCIUM CARBONATE (TUMS) 500 MG (200 MG ELEMENTAL) PO (08:42)
[2024-09-26] MEDS: DULoxetine HCL 20 MG CAPSULE.DR BY MOUTH (08:42)
[2024-09-26] MEDS: MULTIVITAMINS THERAPEUTIC TAB (*BKC) 1 TABLET PO (08:43)
[2024-09-26] MEDS: PANTOPRAZOLE 40 MG TABLET PO (08:43)
[2024-09-26] MEDS: FERROUS SULFATE 325 MG TABLET DR BY MOUTH (08:43)
[2024-09-26] MEDS: CHOLECALCIFEROL 1,000 UNITS TABLET 1000 UNITS PO (08:43)
[2024-09-26] MEDS: LOSARTAN POTASSIUM 100 MG TABLET PO (08:43)
[2024-09-26] MEDS: hydroCHLOROthiazide 25 MG TABLET PO (08:43)
[2024-09-26] MEDS: SENNA/DOCUSATE SODIUM TABLET 2 TAB PO (08:43)
[2024-09-26] MEDS: PRAVASTATIN SODIUM 20 MG TABLET BY MOUTH (08:44)
[2024-09-26] MEDS: MAGNESIUM 13.5 MG TABLET (250 MG MAG GLUCONATE) BY MOUTH (08:44)
[2024-09-26] MEDS: FAMOTIDINE 20 MG TABLET 40 MG PO (08:44)
[2024-09-26] MEDS: APIXABAN 2.5 MG TABLET PO (08:45)
[2024-09-26] MEDS: AMIODARONE HCL 100 MG TABLET BY MOUTH (08:45)
[2024-09-26] MEDS: OMEGA 3 POLYUNSAT FATTY ACIDS 1 GM CAP PO (08:45)
[2024-09-26] MEDS: polyethylene glycoL 3350 17 GM POWD.PACK PO (08:45)
[2024-09-26 08:53] LABS: Alanine Aminotransferase 31 U/L (6-35); Albumin Level 3.9 g/dL (3.5-5.1); Alkaline Phosphatase 97 U/L (38-126); Anion Gap 8 mmol/L (4-12); Aspartate Amino Transferase 46 U/L (14-36); Bilirubin,Total 0.4 mg/dL (0.2-1.3); Blood Urea Nitrogen 14 mg/dL (7-17); Calcium 8.8 mg/dL (8.4-10.2); Carbon Dioxide 24 mmol/L (22-30); Chloride 105 mmol/L (98-107); Estimated CRCL calculation 55 ml/min; Estimated Glomerular Filt Rate > 60; Glucose 118 mg/dL (65-110); Potassium 4.1 mmol/L (3.4-5.0); Sodium 137 mmol/L (137-145)
--- NOTE | 2024-09-26 11:32 | PM.PNORT ---
Progress Note: A&P Assessment and Plan (1) Closed olecranon fracture: Qualifiers: Encounter type: initial encounter Laterality: right Qualified Code(s): S52.021A - Displaced fracture of olecranon process without intraarticular extension of right ulna, initial encounter for closed fracture Code(s): S52.023A - Displaced fracture of olecranon process without intraarticular extension of unspecified ulna, initial encounter for closed fracture Status: Acute Assessment and Plan: Patient is postop day 1 after open reduction internal fixation of right olecranon fracture with Accu Med olecranon locking plate. She is comfortable this morning. She has intact sensation in all digits and throughout the hand and move her fingers well. She has been up to use the bathroom during the night several times with the nurse watching her and she feels confident she will be ready to go home today. I would like Physical therapy to work with her. She has a small base or prong type cane at home and I would like her to bring that in and use that in her left hand. I have discussed with her that having the right arm in a splint is going to affect her balance she must avoid falling course. If she is doing well with physical therapy today she may be discharged home from my standpoint if the hospitalist feels she is ready. I have left a message with the pharmacy staff to correct the medical record to indicate that she is actually only taking 1/2 of a Eliquis 5 mg tablet q.12 hours for her atrial fibrillation prophylaxis chronically. I have resumed that dose here in the hospital. She has not felt any palpitations or heart racing. I would like to see her in the office in 2 weeks. Subjective Subjective Date/Time Seen: 09/26/24 11:32 Objective Data Vital Signs Vital Signs: Vital Signs - 24 hr 09/25/24 12:00 09/25/24 13:29 09/25/24 17:32 Temperature 36.5 C 36.2 C L 36.8 C Pulse Rate 64 68 80 Respiratory Rate 18 16 18 Blood Pressure 140/60 139/68 132/99 H Pulse Oximetry 94 97 100 Oxygen Delivery Room Air Simple Face Mask Oxygen Flow Rate 8 09/25/24 17:45 09/25/24 18:00 09/25/24 18:15 Temperature Pulse Rate 78 73 75 Respiratory Rate 17 16 15 Blood Pressure 169/76 H 159/76 H 152/72 H Pulse Oximetry 99 92 93 Oxygen Delivery Room Air Nasal Cannula Nasal Cannula Oxygen Flow Rate 2 2 09/25/24 18:30 09/25/24 18:33 09/25/24 18:48 Temperature 36.4 C L 36.5 C Pulse Rate 74 73 71 Respiratory Rate 16 18 18 Blood Pressure 153/67 H 149/71 H 149/63 H Pulse Oximetry 92 99 95 Oxygen Delivery Nasal Cannula Oxygen Flow Rate 2 09/25/24 19:47 09/26/24 00:18 09/25/24 20:00 Temperature 36.9 C 36.6 C Pulse Rate 72 81 Respiratory Rate 20 18 Blood Pressure 146/62 H 117/61 Pulse Oximetry 99 94 Oxygen Delivery Room Air Oxygen Flow Rate 09/26/24 04:00 09/26/24 08:37 09/26/24 08:45 Temperature 36.9 C Pulse Rate 82 75 82 Respiratory Rate 18 Blood Pressure 121/57 L 131/64 Pulse Oximetry 97 Oxygen Delivery Oxygen Flow Rate 09/26/24 09:13 09/26/24 09:42 09/26/24 09:00 Temperature Pulse Rate Respiratory Rate Blood Pressure Pulse Oximetry 97 Oxygen Delivery Room Air Room Air Room Air Oxygen Flow Rate 09/26/24 08:00 Temperature Pulse Rate 78 Respiratory Rate Blood Pressure Pulse Oximetry Oxygen Delivery Oxygen Flow Rate Intake/Output Intake/Output: Intake & Output 09/23/24 09/24/24 09/25/24 09/26/24 23:59 23:59 23:59 23:59 Intake Total 480 2770 600 420 Output Total 1350 800 Balance 480 1420 -200 420 Meds/Results Medications: Active Medications Generic Name Dose Route Start Last Admin Trade Name Neoq PRN Reason Stop Dose Admin Acetaminophen 650 mg 09/25/24 19:00 09/26/24 06:15 Acetaminophen 325 Mg Tablet PO 650 mg Q6H LETTY Administration Amiodarone HCl 100 mg 09/24/24 09:00 09/26/24 08:45 Amiodarone Hcl 100 Mg Tablet BY MOUTH 100 mg DAILY LETTY Administration Apixaban 2.5 mg 09/26/24 09:00 09/26/24 08:45 Apixaban 2.5 Mg Tablet PO 2.5 mg Q12HR LETTY Administration Calcium Carbonate 500 mg 09/24/24 09:00 09/26/24 08:42 Calcium Carbonate (Tums) 500 Mg (200 Mg Elemental) PO 500 mg BID LETTY Administration Duloxetine HCl 20 mg 09/24/24 09:00 09/26/24 08:42 Duloxetine Hcl 20 Mg Capsule.Dr BY MOUTH 20 mg BID LETTY Administration Famotidine 40 mg 09/24/24 09:00 09/26/24 08:44 Famotidine 20 Mg Tablet PO 40 mg DAILY LETTY Administration Ferrous Sulfate 325 mg 09/24/24 09:00 09/26/24 08:43 Ferrous Sulfate [address] BY MOUTH 325 mg DAILY LETTY Administration Fish Oil 1 gm 09/26/24 09:00 09/26/24 08:45 [place] 3 Polyunsat Fatty Acids 1 Gm Cap PO 1 gm BID LETTY Administration Hydrochlorothiazide 25 mg 09/24/24 09:00 09/26/24 08:43 Hydrochlorothiazide 25 Mg Tablet PO 25 mg QAM LETTY Administration Cefazolin Sodium 1 gm in 50 mls @ 100 mls/hr 09/25/24 23:00 09/26/24 06:16 Ancef 1 Gm/Ns 50 Ml IVPB 09/26/24 15:29 100 mls/hr Q8H LETTY Administration Dextrose/Sodium Chloride 1,000 mls @ 80 mls/hr 09/25/24 18:33 09/25/24 18:55 Dextrose 5% Sodium Chloride 0.45% IV CONT 80 mls/hr .[id number] LETTY Administration Losartan Potassium 100 mg 09/24/24 09:00 09/26/24 08:43 Losartan Potassium 100 Mg Tablet PO 100 mg DAILY LETTY Administration Magnesium Gluconate 13.5 mg 09/26/24 09:00 09/26/24 08:44 Magnesium 13.5 Mg Tablet (250 Mg Mag Gluconate) BY MOUTH 13.5 mg DAILY LETTY Administration Miscellaneous Information 1 each 09/25/24 00:01 09/26/24 03:22 Nonformulary Drug (Mecobalamin (Vitamin B12) 500 Mcg Tablet,Chewable) We Stock Cyanocobala XX 10/25/24 00:00 Not Given CLARIFY LETTY Morphine Sulfate 2 mg 09/23/24 14:48 09/25/24 18:48 Morphine Sulfate (*Crx) 2 Mg/Ml Inj IV PUSH 2 mg Q2H PRN Administration Pain Rated 7-10 Multivitamins Therapeutic 1 tablet 09/26/24 09:00 09/26/24 08:43 Multivitamins Therapeutic Tab (*Bkc) PO 1 tablet DAILY LETTY Administration Non-Formulary Medication 500 mcg 09/26/24 09:00 Mecobalamin (Vitamin B12) PO 10/26/24 08:59 DAILY LETTY Ondansetron HCl 4 mg 09/23/24 14:48 09/25/24 18:47 Ondansetron Inj 4 Mg/2 Ml Vial IV PUSH 4 mg Q4H PRN Administration Nausea Ondansetron HCl 4 mg 09/25/24 14:51 Ondansetron Inj 4 Mg/2 Ml Vial IV PUSH ONCE PRN Nausea Oxycodone HCl 2.5 mg 09/25/24 18:33 Oxycodone Hcl (*Crx) 2.5 Mg Tab Ir PO Q4H PRN Pain Rated 7-10 Oxycodone HCl 2.5 mg 09/25/24 19:00 09/26/24 08:44 Oxycodone Hcl (*Crx) 2.5 Mg Tab Ir PO 2.5 mg Q4H LETTY Administration Pantoprazole Sodium 40 mg 09/24/24 09:00 09/26/24 08:43 Pantoprazole 40 Mg Tablet PO 40 mg BID LETTY Administration Polyethylene Glycol 17 gm 09/26/24 09:00 09/26/24 08:45 Polyethylene Glycol 3350 17 Gm Powd.Pack PO 17 gm QAM LETTY Administration Pravastatin Sodium 20 mg 09/24/24 09:00 09/26/24 08:44 Pravastatin Sodium 20 Mg Tablet BY MOUTH 20 mg DAILY LETTY Administration Senna/Docusate Sodium 2 tab 09/26/24 09:00 09/26/24 08:43 Senna/Docusate Sodium Tablet PO 2 tab BID [facility] Administration Vitamin D 1,000 units 09/24/24 09:00 09/26/24 08:43 Cholecalciferol 1,000 Units Tablet PO 1,000 units DAILY LETTY Administration Radiology Results: ITS Impressions Elbow X-Ray 09/23/24 13:21 IMPRESSION: 1. Transverse fracture of olecranon of proximal ulna. ADDENDUM: 09/24/24 1157 The second sentence of the findings section should read, The distal fracture fragment demonstrates 2.7 cm distraction and rotation. Chest X-Ray 09/24/24 07:13 Impression: No acute abnormality. Elbow CT 09/24/24 14:30 IMPRESSION: 1. Comminuted fracture of olecranon of proximal ulna. Labs Labs: Laboratory Results - last 24 hr 09/26/24 08:33 WBC 10.3 H RBC 3.93 L Hgb 12.8 Hct 37.5 MCV 95.4 MCH 32.6 MCHC 34.1 RDW 13.7 Plt Count 235 MPV 10.2 Immature Gran % (Auto) 0.4 Neut % (Auto) 77.9 H Lymph % (Auto) 14.5 L [place] % (Auto) 6.9 Eos % (Auto) 0.0 Baso % (Auto) 0.3 Lymph # (Auto) 1.50 [place] # (Auto) 0.7 H Eos # (Auto) 0.0 Baso # (Auto) 0.0 Abs Immat Gran (auto) 0.04 H Absolute Neuts (auto) 8.0 H Absolute Nucleated RBC 0.000 Nucleated RBC % 0.0 Sodium 137 Potassium 4.1 Chloride 105 Carbon Dioxide 24 Anion Gap 8 BUN 14 Creatinine 0.70 Estim Creat Clear Calc 55 Estimated GFR > 60 Glucose 118 H Calcium 8.8 Magnesium 2.0 Total Bilirubin 0.4 AST 46 H ALT 31 Alkaline Phosphatase 97 Total Protein 7.0 Albumin 3.9
--- NOTE | 2024-09-26 12:39 | P.DS_ITS ---
DS: Admitting Diagnosis Discharge Date 09/26/24 Admitting Diagnosis Closed olecranon fracture: DS: Discharge Diagnosis Discharge Diagnosis (1) Closed olecranon fracture: Qualifiers: Encounter type: initial encounter Laterality: right Qualified Code(s): S52.021A - Displaced fracture of olecranon process without intraarticular extension of right ulna, initial encounter for closed fracture Code(s): S52.023A - Displaced fracture of olecranon process without intraarticular extension of unspecified ulna, initial encounter for closed fracture Status: Acute DS: Summary Hospital Course Hospital Course: 78-year-old female with history of atrial fibrillation On Eliquis presents to the hospital after she tripped and fell and hurt her elbow. in the ED she has leukocytosis at 10.2, right elbow x-ray shows a transverse fracture of the olecranon of the proximal ulna, chest x-ray shows no acute process . Patient states that she was in her garage when she tripped and fell onto her right elbow. Patient does not give much details about the fall. However due to acute pain she came to the hospital. Patient has leukocytosis at 10.2, INR of 1.1 an elevated glucose at 133, UA is pending. cardiology has been consulted for surgical clearance for patient. Ortho was consulted and patient was scheduled for ORIF. cardiology was consulted and cleared patient for surgery however surgery was delayed for 2 days to allow Eliquis washout. Patient underwent ORIF yesterday and PT/OT evaluated and recommended home health Patient was discharged home with home health. F/u with PCP in 3-5 days Continue home Eliquis 2.5mg bid and other home meds Continue f/u with ortho as instructed. Assessment and Plan (1) Olecranon fracture: Code(s): S52.023A - Displaced fracture of olecranon process without intraarticular extension of unspecified ulna, initial encounter for closed fracture Status: Acute Assessment and Plan: right after a trip and fall Cardiology cleared for surgery, underwent 2 days of Eliquis washout S/p ORIF PT/OT recommended Home health F/u [facility] as instructed (2) Leukocytosis: Code(s): D72.829 - Elevated white blood cell count, unspecified Status: Acute Assessment and Plan: urine culture negative, thus UTI ruled out chest x-ray no acute process no signs of soft tissue infection resolved no antibiotics F/u with PCP in 3-5 days (3) Osteoporosis: Code(s): M81.0 - Age-related osteoporosis without current pathological fracture Status: Acute Assessment and Plan: restart calcium and vitamin-D (4) PAF (paroxysmal atrial fibrillation): Code(s): I48.0 - Paroxysmal atrial fibrillation Status: Acute Assessment and Plan: Eliquis on hold cardiology consulted for surgical clearance per cardiology Low cardiac risk. May proceed to noncardiac surgery without further cardiac workup. Continue Eliquis and Amodarone (5) HTN, goal below 140/80: Code(s): I10 - Essential (primary) hypertension Status: Acute Assessment and Plan: Continue Cozaar and hydrochlorothiazide Continue follow up as above Time Spent with Patient Time attestation: Total time spent providing and/or coordinating discharge services: DS: Data Data Completed and Pending Labs on day of discharge: Labs from last 24 hours 09/26/24 08:33 WBC 10.3 H RBC 3.93 L Hgb 12.8 Hct 37.5 MCV 95.4 MCH 32.6 MCHC 34.1 RDW 13.7 Plt Count 235 MPV 10.2 Immature Gran % (Auto) 0.4 Neut % (Auto) 77.9 H Lymph % (Auto) 14.5 L Imperial % (Auto) 6.9 Eos % (Auto) 0.0 Baso % (Auto) 0.3 Lymph # (Auto) 1.50 Imperial # (Auto) 0.7 H Eos # (Auto) 0.0 Baso # (Auto) 0.0 Abs Immat Gran (auto) 0.04 H Absolute Neuts (auto) 8.0 H Absolute Nucleated RBC 0.000 Nucleated RBC % 0.0 Sodium 137 Potassium 4.1 Chloride 105 Carbon Dioxide 24 Anion Gap 8 BUN 14 Creatinine 0.70 Estim Creat Clear Calc 55 Estimated GFR > 60 Glucose 118 H Calcium 8.8 Magnesium 2.0 Total Bilirubin 0.4 AST 46 H ALT 31 Alkaline Phosphatase 97 Total Protein 7.0 Albumin 3.9 Discharge Plan Discharge Attending physician on discharge: Mary Mejia Consulting providers: Scottie Ascencio; Josse Hernandez Discharging Clinician: Mary Mejia Anticipated Discharge Date/Time: 09/26/24 12:32 Patient Disposition: Home Health Service Activity: as tolerated Diet: as tolerated Discharge Instructions: Per Care Coordination. Patient to have [facility] for RN/PT/OT [phone]. They will contact the patient to schedule first visit. Instructions for care of your right upper extremity: Gently open and close the fingers of your right hand every hour while awake to prevent stiffness. Keep the arm and forearm elevated on at least 2 pillows. Ideally the hand would be higher than the elbow which will minimize swelling in her hand. Keep pressure off the back of your elbow where we have marked on the dressing. No ice on the elbow. Ice will decrease the blood flow in your skin and impair healing If you would like you may use the arm sling when you are up walking from 1 place to another. However make sure you take the sling off immediately once her a sitting again because the sling puts pressure on the back of your elbow. No lifting pushing pulling holding squeezing with the right hand. In other words, no use the right hand except for gently moving the digits periodic lead to prevent stiffness. You may wish to use a cane in your left hand for balance when you are walking as having your right arm in a sling is going to cause relative unsteadiness due to the affected has on the balance that you are used to Patient Instructions: Antibiotic Form Stand Alone Forms: General Discharge Information Follow-up/Referrals: Scottie Ascencio MD [Physician] - (Follow-up in 2 weeks in the office) Discharge Medications: New Eliquis 2.5 mg Tablet 2.5 mg PO Q12HR 30 Days Qty: 60 0RF cefdinir 300 mg capsule 300 mg PO Q12H Qty: 10 0RF Continued famotidine [Pepcid] 40 mg tablet 40 mg PO DAILY Qty: 10 0RF cholecalciferol (vitamin D3) 25 mcg (1,000 unit) capsule 25 mcg PO DAILY calcium carbonate [Calcium 500] 500 mg calcium (1,250 mg) tablet,chewable 500 mg PO BID ferrous sulfate 325 mg (65 mg iron) tablet 325 mg PO DAILY Patient Comments: agrees to hold for 5-7 days prior to colonoscopy on 06/09/23 multivitamin Tablet 1 tablet PO DAILY magnesium 250 mg tablet 250 mg PO DAILY mecobalamin (vitamin B12) 500 mcg tablet,chewable 500 mcg PO DAILY omega-3 fatty acids-fish oil [Fish Oil] 360-1,200 mg capsule 1 cap PO BID omeprazole 40 mg capsule,delayed release(DR/EC) 40 mg PO DAILY Qty: 90 1RF amiodarone 200 mg tablet See Rx Instructions .ROUTE .COMPLEX Qty: 45 2RF Dose Instruction: TAKE 1/2 TABLET BY MOUTH EVERY DAY Rx Instructions: TAKE 1/2 TABLET BY MOUTH EVERY DAY pravastatin 40 mg tablet See Rx Instructions .ROUTE .COMPLEX Qty: 90 2RF Dose Instruction: TAKE 1 TABLET BY MOUTH EVERY DAY Rx Instructions: TAKE 1 TABLET BY MOUTH EVERY DAY losartan-hydrochlorothiazide 100-25 mg tablet See Rx Instructions .ROUTE .COMPLEX Qty: 90 2RF Dose Instruction: TAKE 1 TABLET BY MOUTH EVERY DAY Rx Instructions: TAKE 1 TABLET BY MOUTH EVERY DAY duloxetine 20 mg capsule,delayed release(DR/EC) See Rx Instructions .ROUTE .COMPLEX Qty: 180 0RF Dose Instruction: TAKE 1 CAPSULE BY MOUTH TWICE A DAY Rx Instructions: TAKE 1 CAPSULE BY MOUTH TWICE A DAY Discontinued Eliquis 5 mg tablet See Rx Instructions .ROUTE .COMPLEX Rx Instructions: TAKE 1/2 TABLET BY MOUTH TWICE A DAY Date of admission: 09/24/24 10:30 Primary Care Provider: John Prince Admitting Provider: Mayra Moreau Attending physician on admission: Mayra Moreau Condition: Stable
== END 2024-09-26 15:30 | disposition home or self-care (01) | DRG 512 ==
LOC: ANHED 13:37 → ANH3MEDSUR 15:29 → ANH2MED 09-26 08:27 → ANH3MEDSUR 09-27 16:08
PROVIDERS: Nurse Practitioner Gerontology; Orthopaedic Surgery; Admitting Provider Family Medicine; Emergency Provider Emergency Medicine; PCP Family Medicine; Visit Provider Internal Medicine
PROC: 0PSK04Z Reposition Right Ulna with Internal Fixation Device, Open Approach (ICD-10-PCS; principal; 2024-09-25 15:00)
DX: S52.021A Displaced fracture of olecranon process without intraarticular extension of right ulna, initial encounter for closed fracture (principal); W01.10XA Fall on same level from slipping, tripping and stumbling with subsequent striking against unspecified object, initial encounter; D72.829 Elevated white blood cell count, unspecified; M81.0 Age-related osteoporosis without current pathological fracture; I48.0 Paroxysmal atrial fibrillation; I10 Essential (primary) hypertension; K21.9 Gastro-esophageal reflux disease without esophagitis; G62.9 Polyneuropathy, unspecified; E78.5 Hyperlipidemia, unspecified; Z86.16 Personal history of COVID-19; Z87.442 Personal history of urinary calculi; Z79.01 Long term (current) use of anticoagulants; Z90.49 Acquired absence of other specified parts of digestive tract; Z90.710 Acquired absence of both cervix and uterus; Z87.891 Personal history of nicotine dependence
CPT/HCPCS: 36415; 71045; 73070; 73200; 80048; 80053; 81001; 82948; 83735; 85025; 85610; 85730; 86850; 86900; 86901; 93005; 96374; 97161; 97165; 97530; 97535; 99199; 99285; A4565; A9270; C1713; C1769; G0378; J0690; J1100; J2270; J2405; J2704; J3010; J3370; J7120

== ENCOUNTER 2024-10-10 08:45 | Outpatient (CLI) | payer OTHER, SELFPAY ==
--- NOTE | ~2024-10-10 | XR_ITS ---
EXAMINATION: XR elbow RT 2V DATE: 10/10/2024 09:02 INDICATION: Displaced fracture of olecranon process of right ulna. TECHNIQUE: 2 views of right elbow were obtained. COMPARISON: Right elbow radiographs 09/23/2024 FINDINGS: There is a transverse fracture of olecranon of proximal in near-anatomic alignment status p ost open reduction internal fixation with plate and screws. There is mild elbow joint osteoarthritis. There is an elbow joint effusion. IMPRESSION: 1. Transverse fracture of olecranon status post open reduction internal fixation. 2. Mild elbow joint osteoarthritis. 3. Elbow joint effusion. Reviewed, dictated and finalized at location [facility]. [facility] [employer] IMPRESSION: 1. Transverse fracture of olecranon status post open reduction internal fixatio n. 2. Mild elbow joint osteoarthritis. 3. Elbow joint effusion.
== END 2024-10-10 08:46 | disposition home or self-care (01) ==
PROVIDERS: PCP Family Medicine; Visit Provider Orthopaedic Surgery
DX: S52.021A Displaced fracture of olecranon process without intraarticular extension of right ulna, initial encounter for closed fracture (principal); X58.XXXA Exposure to other specified factors, initial encounter; M19.021 Primary osteoarthritis, right elbow; M25.421 Effusion, right elbow
CPT/HCPCS: 73070

== ENCOUNTER 2025-03-17 11:18 | Emergency (ER) | payer OTHER, SELFPAY ==
[2025-03-17 11:25] VITALS: BP 171/77; PULSE 82; RESP 18; TEMP 36.6; O2SAT 99
--- NOTE | 2025-03-17 11:45 | ED.SKABFB ---
HPI - Skin/Abscess/Foreign Bdy General Chief complaint: Skin/Abscess/Foreign Body Stated complaint: Rash Time Seen by Provider: 03/17/25 11:43 Source: patient and RN notes reviewed Mode of arrival: ambulatory Limitations: no limitations History of Present Illness HPI narrative: 79-year-old female presents with concern for rash to her face, neck, upper extremities.. Reports on Monday she was doing some yd work, Monday she had the rash. Reports she has history of getting poison michelle. She has been washing the rash with discharge and has been using hydrocortisone cream and Benadryl cream. She denies swollen lips, swollen tongue, trouble breathing. MD complaint: rash Related Data Home Medications ?Medication ?Instructions ?Recorded ?Confirmed ?Last Taken ?Type calcium carbonate (Calcium 500) 500 mg PO BID 02/08/23 12/16/24 09/23/24 History cholecalciferol (vitamin D3) 25 25 mcg PO DAILY 02/08/23 12/16/24 09/23/24 History mcg (1,000 unit) capsule ferrous sulfate 325 mg (65 mg 325 mg PO DAILY 02/08/23 12/16/24 09/23/24 History iron) tablet magnesium 250 mg tablet 250 mg PO DAILY 02/08/23 12/16/24 09/23/24 History mecobalamin (vitamin B12) 500 mcg 500 mcg PO DAILY 02/08/23 12/16/24 09/23/24 History chewable tablet multivitamin 1 tablet PO DAILY 02/08/23 12/16/24 09/23/24 History omega-3 fatty acids-fish oil 360 1 cap PO BID 02/08/23 12/16/24 09/23/24 History mg-1,200 mg capsule (Fish Oil) Allergies Allergy/AdvReac Type Severity Reaction Status Date / Time No Known Allergies Allergy Verified 12/16/24 14:05 Review of Systems Review of Systems: CONSTITUTIONAL: Denies malaise, chills, sweats, or fever. EYES: Denies redness, or discharge. ENT: Denies rhinorrhea, congestion, swollen lips, swollen tongue CARDIOVASCULAR: Denies chest pain, palpitations, or edema. RESPIRATORY: Denies cough or dyspnea. GASTROINTESTINAL: Denies abdominal pain, nausea, vomiting SKIN: Reports rash to her face, neck and in her forearms MUSCULOSKELETAL: Denies joint pain or myalgia. NEUROLOGIC: Denies headache. All systems reviewed & are unremarkable except as noted in HPI and below PMFSH Past Medical History Medical History Brain tumor PAF (paroxysmal atrial fibrillation) History of kidney stones COVID-19 Gastroesophageal reflux disease without esophagitis HTN, goal below 140/80 HLD (hyperlipidemia) Mitral valve prolapse Neuropathy Osteoporosis Surgical History Surgical History History of hysterectomy History of cholecystectomy History of craniotomy Family History Family History Father Family history of multiple sclerosis Patient's father is Mother Hypertension Cerebrovascular accident Family history of transient ischemic attacks Family history of congestive heart failure Patient's mother is Sibling Hypertension Family history of elevated blood lipids Family history of coronary artery disease Patient's sister is in good health Patient's brother is in good health Social History Social History Smoking packs per day: 0.5 Smoking cigarettes per day: 10.0 Years smoked: 10 Smoking pack-years: 5.00 Smoking status: Former smoker Tobacco type: cigarettes Second hand tobacco smoke exposure: No Smoking end date: 11/27/1962 Alcohol intake: never Substance use: never Substance use type: does not use Do You Feel Safe in your Home?: Yes Lack of Transportation: No Lack of Food: Never True Current Housing: I Have Housing Concerned About Future Housing: No Difficulty Paying Gas/Electric Bills: No Difficulty Paying for Meds: No Currently Unemployed: No Education: High School Diploma/GED Difficulty w/ Childcare or Family Care: No Living arrangements: with family Spiritual care concerns: No Comments At time of signature, agree with nursing past medical, surgical, social and family history. There is no relevant family history pertinent to the presenting complaint Exam Narrative: GENERAL: Well-appearing, well-nourished, and in no acute distress. HEAD: Normocephalic, atraumatic. EYES: PERRLA, conjunctivae clear, and EOMI. ENT: Mucous membranes moist. Oropharynx without edema, erythema or lesions. NECK: Supple. No lymphadenopathy CHEST: Clear to auscultation. No respiratory distress. HEART: Regular rate and rhythm. SKIN: Warm, dry. Erythematous patches of rash noted to the neck, right eye, forearms consistent with poison michelle dermatitis NEURO: Alert and oriented x3. PSYCH: Normal mood and affect Course Course Emergency Course: Patient is aware of diagnosis, understands and agrees to treatment plan. Anticipatory guidance given. Patient agrees to follow-up as directed and is aware of reasons to seek care at the emergency department. Portions of this record may have been created with voice recognition software Level of Care: Express Care Visit Vital Signs Vital signs: Vital Signs Temperature 97.9 F 03/17/25 11:25 Pulse Rate 82 03/17/25 11:25 Respiratory Rate 18 03/17/25 11:25 Blood Pressure 171/77 H 03/17/25 11:25 Pulse Oximetry 99 03/17/25 11:25 Oxygen Delivery Room Air 03/17/25 11:25 Temperature 97.9 F 03/17/25 11:25 Pulse Rate 82 03/17/25 11:25 Respiratory Rate 18 03/17/25 11:25 Blood Pressure 171/77 H 03/17/25 11:25 Pulse Oximetry 99 03/17/25 11:25 Oxygen Delivery Room Air 03/17/25 11:25 Reviewed. MDM - Skin/Abscess/Foreign Bdy MDM Narrative Medical decision making narrative: Does not appear at this time to be erythema multiforme, bullous, SJS, TEN; no evidence at this time to suggest RMSF, endocarditis or Lyme disease; patient looks well, nontoxic and is tolerating oral intake; no neurologic signs or symptoms; no headache, photophobia or neck pain; afebrile; appropriate for initial outpatient treatment; discussed the importance of follow-up, patient agrees; question, viral exanthema, contact dermatitis, allergic dermatitis, eczema, urticaria. No soft palate or uvula edema, no tongue, lip edema or other mucosal involvement, no respiratory compromise, no stridor, no wheezing, no wheezing, no history of syncope, no hypotension, no nausea, vomiting, or diarrhea. Instructed patient to go to nearest ER immediately for any worsening symptoms including but not limited to: fever, spreading rash, pain, sore throat, headache, dizziness, chest pain, trouble breathing, or any symptoms concerning to the patient. Critical Care Time Critical Care Time Critical Care Time: No Discharge Plan Discharge Clinical Impression: Contact dermatitis Patient Disposition: Home Condition: Stable Instructions: Poison Michelle (ED) Additional Instructions: Prevention is always better than treatment. Learn to identify poison michelle, oak, and sumac and avoid it. Wear long sleeves, long pants, shoes, and socks. If you touched the plant, try to keep your hands away from your eyes, mouth, and face. Wash the skin thoroughly with soap and cool water as soon as possible. Scrub under the fingernails with a brush to prevent spreading of the resin to other parts of the body by touching or scratching. Remember to wash any clothing with soap and hot water as the resin can persist for many months and cause further dermatitis. Antihistamines do not help to relieve itching caused by poison michelle dermatitis. Do not apply prescription strength steroid cream to your face For some people, adding oatmeal to a bath, applying cool wet compresses, and applying calamine lotion may help to relieve itching. Once the blisters begin weeping fluid, astringents containing aluminum acetate (Burow's solution) and Domeboro may help to relieve the rash. IF symptoms get worse to follow up with your primary care provider or seek ER visit if you developing difficulty breathing, weakness, dizziness. Patient Language: Yakut Prescriptions: New triamcinolone acetonide 0.1 % cream 1 applic TOPICAL BID 7 Days Qty: 80 0RF methylprednisolone [Medrol (Collin)] 4 mg tablets,dose pack See Rx Instructions .ROUTE .COMPLEX Qty: 21 0RF Rx Instructions: orally per package directions No Action famotidine [Pepcid] 40 mg tablet 40 mg PO DAILY Qty: 10 0RF cholecalciferol (vitamin D3) 25 mcg (1,000 unit) capsule 25 mcg PO DAILY calcium carbonate [Calcium 500] 500 mg calcium (1,250 mg) tablet,chewable 500 mg PO BID ferrous sulfate 325 mg (65 mg iron) tablet 325 mg PO DAILY Patient Comments: agrees to hold for 5-7 days prior to colonoscopy on 06/09/23 multivitamin Tablet 1 tablet PO DAILY magnesium 250 mg tablet 250 mg PO DAILY mecobalamin (vitamin B12) 500 mcg tablet,chewable 500 mcg PO DAILY omega-3 fatty acids-fish oil [Fish Oil] 360-1,200 mg capsule 1 cap PO BID Eliquis 2.5 mg Tablet 2.5 mg PO Q12HR 30 Days Qty: 60 0RF pravastatin 40 mg tablet See Rx Instructions .ROUTE .COMPLEX Qty: 90 2RF Dose Instruction: TAKE 1 TABLET BY MOUTH EVERY DAY Rx Instructions: TAKE 1 TABLET BY MOUTH EVERY DAY omeprazole 40 mg capsule,delayed release(DR/EC) 40 mg PO DAILY Qty: 90 1RF duloxetine 20 mg capsule,delayed release(DR/EC) See Rx Instructions .ROUTE .COMPLEX Qty: 180 0RF Dose Instruction: TAKE 1 CAPSULE BY MOUTH TWICE A DAY Rx Instructions: TAKE 1 CAPSULE BY MOUTH TWICE A DAY losartan-hydrochlorothiazide 100-25 mg tablet See Rx Instructions .ROUTE .COMPLEX Qty: 90 2RF Dose Instruction: TAKE 1 TABLET BY MOUTH EVERY DAY Rx Instructions: TAKE 1 TABLET BY MOUTH EVERY DAY amiodarone 200 mg tablet See Rx Instructions .ROUTE .COMPLEX Qty: 45 2RF Dose Instruction: TAKE 1/2 TABLET BY MOUTH EVERY DAY Rx Instructions: TAKE 1/2 TABLET BY MOUTH EVERY DAY Follow-up/Referrals: John Prince MD [Primary Care Provider] - Time of Disposition: 11:52
== END 2025-03-17 12:00 | disposition home or self-care (01) ==
PROVIDERS: Emergency Provider Nurse Practitioner; PCP Family Medicine
DX: L25.9 Unspecified contact dermatitis, unspecified cause (principal); Z87.891 Personal history of nicotine dependence; I48.0 Paroxysmal atrial fibrillation; I10 Essential (primary) hypertension; E78.5 Hyperlipidemia, unspecified; K21.9 Gastro-esophageal reflux disease without esophagitis; I34.1 Nonrheumatic mitral (valve) prolapse; G62.9 Polyneuropathy, unspecified; M81.0 Age-related osteoporosis without current pathological fracture; Z86.16 Personal history of COVID-19
CPT/HCPCS: 99213; G0463